=== PATIENT | male | born 1955 | race Caucasian/White ===

== ENCOUNTER 2018-04-11 11:33 | Observation (INO) | payer OTHER ==
--- NOTE | 2018-04-11 12:27 | PDOC ---
History of Present Illness - General Chief Complaint: Blood Sugar Problem Stated Complaint: WEAKNESS Time Seen by Provider: 04/11/18 12:15 - History of Present Illness Initial Comments: 04/11/18 12:21 62 yo M with h/o HTN, HLD, HIV (CD4 842 02/2018) on HAART, Hep C, Cirrhosis, CAD , who p/w lightheadedness. Patient reports lightheadedness and fatigue x 3 days. No identifiable triggers or alleviators. Decreased appetite x 5 days, with decreased PO intake. Patient reports home glucose of 40, 68 Glu in triage. Patient typically, ambulates with crutches. Patient denies SIMON, LOC, N/V, cough, wheezing, palpitations, hemoptysis, leg pain/swelling, F,C, CP, SOB, urinary complaints, abdominal pain, diarrhea, constipation, hematuria, BPR, lightheadedness, weakness, sensory changes. PMHx: as noted above ROS: as noted SHx: Denies Etoh, tobacco, IVDA Allergies:Bactrim Past History - Past Medical History Allergies/Adverse Reactions: Allergies Allergy/AdvReac Type Severity Reaction Status Date / Time sulfamethoxazole Allergy Unknown Verified 04/11/18 12:04 [From Bactrim] trimethoprim [From Bactrim] Allergy Unknown Verified 04/11/18 12:04 Home Medications: Ambulatory Orders Emtricitabine/Tenofovir [Truvada -] 300 mg PO DAILY 05/04/13 Docusate Sodium [Colace -] 100 mg PO TID 09/20/15 Aspirin Coated [Ecotrin -] 81 mg PO DAILY #30 tablet.ec 09/21/15 Metoprolol Succinate [Toprol XL -] 25 mg PO DAILY #30 tab.sr.24h 09/21/15 Oxycodone HCl 10 mg PO Q6H PRN 09/21/15 Raltegravir [Isentress] 400 mg PO BID 09/21/15 Atorvastatin Ca [Lipitor] 10 mg PO HS #30 tablet 09/26/15 Asthma: Yes Cancer: Yes (brain tumor) Cardiac Disorders: Yes COPD: No Liver Disease: Yes (Hep B and C Chirrosis) Other medical history: HIV+ - Surgical History Cardiac Surgery: Yes (Valve replacementsx2) Orthopedic Surgery: Yes (Back 2008) - Immunization History Immunization Up to Date: (unknown) - Suicide/Smoking/Psychosocial Hx Smoking History: Unknown if ever smoked Have you smoked in the past 12 months: Yes Number of Cigarettes Smoked Daily: 3 'Breaking Loose' booklet given: 09/21/15 Hx Alcohol Use: No Drug/Substance Use Hx: No Substance Use Type: None Hx Substance Use Treatment: No Review of Systems - Review of Systems Comments:: 04/11/18 12:25 GENERAL/CONSTITUTIONAL: + Lightheadedness, Decreased appetite. No fever or chills. No weakness. HEAD, EYES, EARS, NOSE AND THROAT: No change in vision. No ear pain or discharge. No sore throat. CARDIOVASCULAR: No chest pain or shortness of breath RESPIRATORY: No cough, wheezing, or hemoptysis. GASTROINTESTINAL: No nausea, vomiting, diarrhea or constipation. GENITOURINARY: No dysuria, frequency, or change in urination. MUSCULOSKELETAL: No joint or muscle swelling or pain. No neck or back pain. SKIN: No rash NEUROLOGIC: No headache, vertigo, loss of consciousness, or change in strength/ sensation. ENDOCRINE: No increased thirst. No abnormal weight change HEMATOLOGIC/LYMPHATIC: No anemia, easy bleeding, or history of blood clots. ALLERGIC/IMMUNOLOGIC: No hives or skin allergy. *Physical Exam - Vital Signs Last Vital Signs Temp Pulse Resp BP Pulse Ox 97.9 F 57 L 17 124/67 100 04/11/18 11:57 04/11/18 11:57 04/11/18 11:57 04/11/18 11:57 04/11/18 11:57 - Physical Exam Comments: 04/11/18 12:25 GENERAL: Awake, alert, and fully oriented,somnolent appearing, and malnourished , with temporal wasting HEAD: No signs of trauma, normocephalic, atraumatic EYES: PERRLA, EOMI, sclera anicteric, conjunctiva clear ENT: Auricles normal inspection, hearing grossly normal, nares patent, oropharynx clear without exudates. Moist mucosa NECK: Normal ROM, supple, no lymphadenopathy, JVD, or masses LUNGS: No distress, speaks full sentences, clear to auscultation bilaterally HEART: Regular rate and rhythm, normal S1 and S2, no murmurs, rubs or gallops, peripheral pulses normal and equal bilaterally. ABDOMEN: Soft, nontender, normoactive bowel sounds. No guarding, no rebound. No masses EXTREMITIES : Normal inspection, Normal range of motion, no edema. No clubbing or cyanosis. NEUROLOGICAL: Cranial nerves II through XII grossly intact. Normal speech, normal gait, no focal sensorimotor deficits SKIN: Warm, Dry, normal turgor, no rashes or lesions noted Moderate Sedation - Procedure Monitoring Vital Signs: Procedure Monitoring Vital Signs Temperature 97.9 F 04/11/18 11:57 Pulse Rate 57 L 04/11/18 11:57 Respiratory Rate 17 04/11/18 11:57 Blood Pressure 124/67 04/11/18 11:57 O2 Sat by Pulse Oximetry (%) 100 04/11/18 11:57 ED Treatment Course - LABORATORY CBC & Chemistry Diagram: 04/11/18 12:10 04/11/18 12:10 - ADDITIONAL ORDERS Additional order review: Laboratory Results 04/11/18 11:44 POC Glucometer 68.45832 04/11/18 11:44 POC Glucometer 68.50242 Medical Decision Making - Medical Decision Making 04/11/18 12:27 62 yo M with h/o HTN, HLD, HIV (CD4 842 02/2018) on HAART, Hep C, CAD, who p/w lightheadedness. HR, 57, vitals otherwise wnl, AF, A&Ox3. Will evaluate for cardiac dyssarythmias, hypoglycemia, hypovolemia, electrolyte abnml, metabolic and toxic derangements, acid-base disturbances, infection. Ed Course: CBC,CMP, VBG, LA, Cardiac Pr.Mg, ABG, NH4 CXR NS EKG: Sinus bradycardia with incomplete left BBB, QT 529, and nml axis. Nml axis. Similar to prior EKG ( 09/2015) 04/11/18 14:16 CBC: Unremarkable BUN/CR: 25/1.7 Trop: Neg 04/11/18 14:17 CXR: Unremarkable. 04/11/18 14:18 Calcium: 6.6 04/11/18 14:18 VB.2 Pco2: 62.1 AB.32/44.7/72.8/22.1 95% O2 RA Calcium: 6.6 04/11/18 14:20 Calcium Gluconate: 1 gm called and left message with neurosurgery solution coordinator. Dr. Jason mcgill. Answering service notified. Awaiting call back. Dr. Jason Mcgill. 04/11/18 15:[address] Rodrigues. 04/11/18 16:11 CTH: Enlarged sella with an intrasellar and suprasellar mass lesion measuring 3.1 cm in craniocaudal length. It demonstrates a slightly lobulated contour and it is reaching and displacing the optic chiasm, superiorly with likely mass effect/effacement. There is also possible extension of the mass into the left cavernous sinus. 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 Correlation with contrast-enhanced MRI of the sella is recommended for further evaluation. Contacted Dr. Donna wallace [phone]. Left message. Awaiting call back. 04/11/18 17:[address] Donna wallace not PMD per answering service. Re attempted phone call to Dr. Jason Mcgill. Message placed. [phone] 04/11/18 21:21 Neurosurgery Jason Mcgill contacted. No acute intervention at this time. Plan to admit to medicine Patient endorsed to medicine. Admit to [facility] *DC/Admit/Observation/Transfer Diagnosis at time of Disposition: Hypocalcemia Failure to thrive Qualifiers: Failure to thrive age range: in adult Qualified Code(s): R62.7 - Adult failure to thrive Altered mental status Qualifiers: Altered mental status type: unspecified Qualified Code(s): R41.82 - Altered mental status, unspecified - Discharge Dispostion Condition at time of disposition: Stable Decision to Admit order: Yes - Referrals Referrals: Lili England MD [Primary Care Provider] - - Patient Instructions - Post Discharge Activity
[2018-04-11] MEDS ORDERED: SODIUM CHLORIDE 1,000 ML IV STA (12:46)
--- NOTE | 2018-04-11 12:54 | PDOC ---
Attending Attestation - HPI HPI: 04/11/18 13:30 The patient is a 62 year old male with a significant past medical history of HTN , HLD, HIV (CD4 842 02/2018) on HAART, Hepatitis C, Cirrhosis, CAD, who presents to the emergency department with complaint of lightheadedness and fatigue for three days and 5 days of decreased appetite with decreased PO intake. Patient denies SIMON, LOC, N/V, cough, wheezing, palpitations, hemoptysis, leg pain/swelling, F,C, CP, SOB, urinary complaints, abdominal pain, diarrhea, constipation, hematuria, BPR, lightheadedness, weakness, sensory changes. Allergies: Sulfamethoxazole, trimethoprim - Medical Decision Making 04/11/18 13:33 Documentation prepared by Luma Gallardo, acting as medical office assistant instructor for Johanne Golden MD <Luma Gallardo - Last Filed: 04/11/18 14:42> - Resident Resident Name: Anibal Comer - ED Attending Attestation I have performed the following: I have examined & evaluated the patient, The case was reviewed & discussed with the resident, I agree w/resident's findings & plan, Exceptions are as noted - Physicial Exam PE: GENERAL: Awake, alert. Answers some questions, but very minimal communication. Cachectic. HEAD: No signs of trauma. +Temporal wasting. EYES: PERRLA, EOMI, sclera anicteric, conjunctiva clear ENT: Auricles normal inspection, hearing grossly normal, nares patent, oropharynx clear without exudates. Moist mucosa NECK: Normal ROM, supple, no lymphadenopathy, JVD, or masses LUNGS: Breath sounds equal, clear to auscultation bilaterally. No wheezes, and no crackles HEART: Regular rate and rhythm, normal S1 and S2, no murmurs, rubs or gallops ABDOMEN: Soft, nontender, normoactive bowel sounds. No guarding, no rebound. No masses EXTREMITIES: Normal range of motion, no edema. No clubbing or cyanosis. No cords, erythema, or tenderness NEUROLOGICAL: Cranial nerves II through XII grossly intact. Normal speech. Motor and sensation intact. SKIN: Warm, Dry, normal turgor, no rashes or lesions noted. - Medical Decision Making Pt appears chronically ill, cachectic. Started a broad workup- CBC, CMP, lactate , ammonia. Pt with significant hypocalcemia on initial labs. VBG is concerning, will obtain an ABG for accurate acid/base status. 04/11/18 15:37 CTH positive for pituitary mass. Will d/w neurosurgery regarding management and whether or not he requires transfer. <Johanne Golden - Last Filed: 04/11/18 15:38>
[2018-04-11 13:29] LABS: BASO % 0.9 % (0-2.0); EOS % 14.6 % (0-4.5); HEMATOCRIT 42.1 % (35.4-49); HEMOGLOBIN 13.6 GM/dL (11.7-16.9); MCH 30.2 pg (25.7-33.7); MCHC 32.2 g/dl (32.0-35.9); MEAN CELL VOLUME 93.7 fl (80-96); MEAN PLT VOLUME 9.1 fl (7.5-11.1); MONO % 5.9 % (3.8-10.2); NEUT % 51.6 % (42.8-82.8); PLATELET COUNT 293 K/MM3 (134-434); RDW 14.5 % (11.9-15.9); WHITE BLOOD COUNT 6.5 K/mm3 (4.0-10.0)
--- NOTE | 2018-04-11 13:41 | EKG ---
Test Reason : Blood Pressure : / mmHG Vent. Rate : 057 BPM Atrial Rate : 057 BPM P-R Int : 180 ms QRS Dur : 116 ms QT Int : 544 ms P-R-T Axes : -15 -24 -28 degrees QTc Int : 529 ms SINUS BRADYCARDIA INCOMPLETE LEFT BUNDLE BRANCH BLOCK NONSPECIFIC ST AND T WAVE ABNORMALITY PROLONGED QT ABNORMAL ECG WHEN COMPARED WITH ECG OF 20-SEP-2015 17:44, INCOMPLETE LEFT BUNDLE BRANCH BLOCK IS NOW PRESENT T WAVE INVERSION NOW EVIDENT IN INFERIOR LEADS NONSPECIFIC T WAVE ABNORMALITY NOW EVIDENT IN ANTEROLATERAL LEADS Confirmed by USMAN CHRISTOPHER MD ([id number]) on 04/11/2018 1:40:28 PM Referred By: Confirmed By:USMAN CHRISTOPHER MD
[2018-04-11 13:45] LABS: VENOUS PC02 62.1 mmHg (38-52); VENOUS PH 7.2 (7.32-7.42); VENOUS PO2 19.4 mmHg (28-48)
[2018-04-11 13:47] LABS: INR 1.11 (0.83-1.09); PROTHROMBIN TIME (PATIENT) 13.1 SEC (9.7-13.0)
[2018-04-11 13:50] LABS: ACTIVATED PTT 39.2 SECONDS (25.2-36.5)
[2018-04-11 14:05] LABS: ALBUMIN 3.9 g/dl (3.4-5.0); ALK PHOS 137 U/L (45-117); ANION GAP 8 MMOL/L (8-16); BILIRUBIN,TOTAL 0.4 mg/dL (0.2-1); BLOOD UREA NITROGEN 24 mg/dL (7-18); CHLORIDE 104 mmol/L (98-107); CO2 26 mmol/L (21-32); CREATININE 1.7 mg/dL (0.55-1.3); GLUCOSE,RANDOM 68 mg/dL (74-106); POTASSIUM 3.8 mmol/L (3.5-5.1); SGOT/AST 16 U/L (15-37); SGPT/ALT 12 U/L (13-61); SODIUM 138 mmol/L (136-145); TOT PROT 7.7 g/dl (6.4-8.2)
[2018-04-11 14:17] LABS: CALCIUM 6.6 mg/dL (8.5-10.1)
[2018-04-11] MEDS ORDERED: CALCIUM GLUCONATE 10% - 1,000 MG/10 ML VIAL IVPB ONE (14:19)
--- NOTE | 2018-04-11 15:12 | HP ---
CHIEF COMPLAINT: PCP: HISTORY OF PRESENT ILLNESS: ER course was notable for: (1) (2) (3) Recent Travel: PAST MEDICAL HISTORY: PAST SURGICAL HISTORY: Social History: Smoking: Alcohol: Drugs: Family History: Allergies sulfamethoxazole [From Bactrim] Allergy (Unknown, Verified 04/11/18 12:04) trimethoprim [From Bactrim] Allergy (Unknown, Verified 04/11/18 12:04) HOME MEDICATIONS: Home Medications Medication Instructions Recorded Emtricitabine/Tenofovir [Truvada -] 300 mg PO DAILY 05/04/13 Docusate Sodium [Colace -] 100 mg PO TID 09/20/15 Aspirin Coated [Ecotrin -] 81 mg PO DAILY #30 tablet.ec 09/21/15 Metoprolol Succinate [Toprol XL -] 25 mg PO DAILY #30 tab.sr.24h 09/21/15 Oxycodone HCl 10 mg PO Q6H PRN 09/21/15 Raltegravir [Isentress] 400 mg PO BID 09/21/15 Atorvastatin Ca [Lipitor] 10 mg PO HS #30 tablet 09/26/15 REVIEW OF SYSTEMS CONSTITUTIONAL: Absent: fever, chills, diaphoresis, generalized weakness, malaise, loss of appetite, weight change HEENT: Absent: rhinorrhea, nasal congestion, throat pain, throat swelling, difficulty swallowing, mouth swelling, ear pain, eye pain, visual changes CARDIOVASCULAR: Absent: chest pain, syncope, palpitations, irregular heart rate, lightheadedness , peripheral edema RESPIRATORY: Absent: cough, shortness of breath, dyspnea with exertion, orthopnea, wheezing, stridor, hemoptysis GASTROINTESTINAL: Absent: abdominal pain, abdominal distension, nausea, vomiting, diarrhea, constipation, melena, hematochezia GENITOURINARY: Absent: dysuria, frequency, urgency, hesitancy, hematuria, flank pain, genital pain MUSCULOSKELETAL: Absent: myalgia, arthralgia, joint swelling, back pain, neck pain SKIN: Absent: rash, itching, pallor HEMATOLOGIC/IMMUNOLOGIC: Absent: easy bleeding, easy bruising, lymphadenopathy, frequent infections ENDOCRINE: Absent: unexplained weight gain, unexplained weight loss, heat intolerance, cold intolerance NEUROLOGIC: Absent: headache, focal weakness or paresthesias, dizziness, unsteady gait, seizure, mental status changes, bladder or bowel incontinence PSYCHIATRIC: Absent: anxiety, depression, suicidal or homicidal ideation, hallucinations. PHYSICAL EXAMINATION Vital Signs - 24 hr 04/11/18 11:57 Temperature 97.9 F Pulse Rate 57 L Respiratory 17 Rate Blood Pressure 124/67 O2 Sat by Pulse 100 Oximetry (%) GENERAL: Awake, alert, and fully oriented, in no acute distress. HEAD: Normal with no signs of trauma. EYES: Pupils equal, round and reactive to light, extraocular movements intact, sclera anicteric, conjunctiva clear. No lid lag. EARS, NOSE, THROAT: Ears normal, nares patent, oropharynx clear without exudates. Moist mucous membranes. NECK: Normal range of motion, supple without lymphadenopathy, JVD, or masses. LUNGS: Breath sounds equal, clear to auscultation bilaterally. No wheezes, and no crackles. No accessory muscle use. HEART: Regular rate and rhythm, normal S1 and S2 without murmur, rub or gallop. ABDOMEN: Soft, nontender, not distended, normoactive bowel sounds, no guarding, no rebound, no masses. No hepatomegaly or splenomegaly. MUSCULOSKELETAL: Normal range of motion at all joints. No bony deformities or tenderness. No CVA tenderness. UPPER EXTREMITIES: 2+ pulses, warm, well-perfused. No cyanosis. No clubbing. No peripheral edema. LOWER EXTREMITIES: 2+ pulses, warm, well-perfused. No calf tenderness. No peripheral edema. NEUROLOGICAL: Cranial nerves II-XII intact. Normal speech. Normal gait. PSYCHIATRIC: Cooperative. Good eye contact. Appropriate mood and affect. SKIN: Warm, dry, normal turgor, no rashes or lesions noted, normal capillary refill. Laboratory Results - last 24 hr 04/11/18 04/11/18 04/11/18 11:44 12:10 12:10 WBC 6.5 RBC 4.50 Hgb 13.6 Hct 42.1 MCV 93.7 MCH 30.2 MCHC 32.2 RDW 14.5 Plt Count 293 MPV 9.1 Absolute Neuts (auto) 3.4 Neutrophils % 51.6 D Lymphocytes % 27.0 D Monocytes % 5.9 Eosinophils % 14.6 H Basophils % 0.9 Nucleated RBC % 0 PT with INR 13.10 H INR 1.11 H PTT (Actin FS) 39.2 H VBG pH POC VBG pCO2 POC VBG pO2 Mixed VBG HCO3 Sodium Potassium Chloride Carbon Dioxide Anion Gap BUN Creatinine Creat Clearance w eGFR POC Glucometer 68.47697 Random Glucose Lactic Acid Calcium Total Bilirubin AST ALT Alkaline Phosphatase Creatine Kinase Troponin I Total Protein Albumin 04/11/18 04/11/18 04/11/18 12:10 12:10 12:10 WBC RBC Hgb Hct MCV MCH MCHC RDW Plt Count MPV Absolute Neuts (auto) Neutrophils % Lymphocytes % Monocytes % Eosinophils % Basophils % Nucleated RBC % PT with INR INR PTT (Actin FS) VBG pH 7.20 L* POC VBG pCO2 62.1 H* POC VBG pO2 19.4 L* Mixed VBG HCO3 25.9 H Sodium 138 Potassium 3.8 Chloride 104 Carbon Dioxide 26 Anion Gap 8 BUN 24 H Creatinine 1.7 H Creat Clearance w eGFR 41.32 POC Glucometer Random Glucose 68 L Lactic Acid 0.8 Calcium 6.6 L* Total Bilirubin 0.4 AST 16 ALT 12 L Alkaline Phosphatase 137 H Creatine Kinase 78 Troponin I Total Protein 7.7 Albumin 3.9 04/11/18 12:10 WBC RBC Hgb Hct MCV MCH MCHC RDW Plt Count MPV Absolute Neuts (auto) Neutrophils % Lymphocytes % Monocytes % Eosinophils % Basophils % Nucleated RBC % PT with INR INR PTT (Actin FS) VBG pH POC VBG pCO2 POC VBG pO2 Mixed VBG HCO3 Sodium Potassium Chloride Carbon Dioxide Anion Gap BUN Creatinine Creat Clearance w eGFR POC Glucometer Random Glucose Lactic Acid Calcium Total Bilirubin AST ALT Alkaline Phosphatase Creatine Kinase Troponin I < 0.02 Total Protein Albumin ASSESSMENT/PLAN: Problem List - Problem (1) Altered mental status (2) Failure to thrive (3) Hypocalcemia (4) HIV (human immunodeficiency virus infection) (5) Hepatitis C (6) Hypertension (7) H/O mitral valve replacement (8) DVT prophylaxis Code(s): [id number] - Visit type - Emergency Visit Emergency Visit: Yes Care time: The patient presented to the Emergency Department on the above date and was hospitalized for further evaluation of their emergent condition. - New Patient This patient is new to me today: Yes Date on this admission: 04/11/18 - Critical Care Critical Care patient: No
[2018-04-11 16:07] LABS: ARTERIAL BLD GAS O2 SATURATION 92.1 % (90-98.9); ARTERIAL BLOOD GAS BASE EXCESS -3.5 meq/l (-2-2); ARTERIAL BLOOD GAS PCO2 44.7 mmHg (35-45); ARTERIAL BLOOD GAS PO2 72.8 mmHg (80-100); ARTERIAL BLOOD GAS pH 7.32 (7.35-7.45); CARBOXYHEMOGLOBIN 0.5 gm% (0.5-2.0)
[2018-04-11] MEDS ORDERED: CALCIUM GLUCONATE 10% - 1,000 MG/10 ML VIAL ONE (16:24)
[2018-04-11] MEDS ORDERED: oxyCODONE HCL 5 MG TABLET ONE (16:25)
[2018-04-11 16:31] LABS: MAGNESIUM 2.7 mg/dL (1.8-2.4)
[2018-04-11] MEDS: oxyCODONE HCL 5 MG TABLET PO PRN (16:44)
[2018-04-11] MEDS ORDERED: HEPARIN NA (PORCINE) 5,000 UNITS/ML 1ML VIAL SQ SCH (22:00)
[2018-04-11] MEDS ORDERED: SODIUM CHLORIDE 1,000 ML IV SCH (23:00)
[2018-04-11] MEDS ORDERED: DOCUSATE SODIUM 100 MG CAPSULE (FP) PO ONE (23:13)
[2018-04-11] MEDS ORDERED: ATORVASTATIN CA 10 MG TABLET (FP) ONE (23:13)
--- NOTE | 2018-04-11 23:26 | HP ---
CHIEF COMPLAINT: lightheadedness, failure to thrive PCP: HISTORY OF PRESENT ILLNESS: Patient is a 71 y/o M w/ PMHx HIV (reportedly compliant w/ ART, CD4 842 in February), Hepatitis C, cirrhosis, CAD w/ 2 valve replacements (could not provide further details), HTN, HLD, IVDA, p/w severe lightheadedness, anorexia, dizziness, fatigue x 3-4 days. No inciting triggers. Denies SIMON, LOC, n/v/c/d, cough, SOB, hemoptysis, hematuria, hematochezia/melena, rash, LE pain/swelling, f/c, CP, abd pain, dysuria, weakness, change in sensation. Denies any recent change in weight. Reports chronic back pain and difficulty passing urine. On presentation Ca 6.6 (given Ca gluconate in ED), Cr 1.7, EKG showing mild sinus bradycardia, incomplete LBBB, QTc 529 unchanged since 2016, non-contrast head CT showing 3cm pituitary mass. Patient reports knowing of pituitary mass since w /u at [place] in 2015 where he was offered and declined neurosurgery. Neurosurgery contacted by ED today who declined intervention at this time. Patient-provided history lacks numerous details; medication compliance is questionable as Pt does not know names of ART drugs. ER course was notable for: (1) Ca 6.6 (2) NCHCT w/ 3cm pituitary mass (3) Cr 1.7 Recent Travel: PAST MEDICAL HISTORY: As per HPI PAST SURGICAL HISTORY: Valve replacement x 2, possible other cardiac surgery, orthopedic surgery; further details unknown Social History: Smoking: Alcohol: Drugs: IVDA Family History: Allergies sulfamethoxazole [From Bactrim] Allergy (Unknown, Verified 04/11/18 12:04) trimethoprim [From Bactrim] Allergy (Unknown, Verified 04/11/18 12:04) HOME MEDICATIONS: Home Medications Medication Instructions Recorded Emtricitabine/Tenofovir [Truvada -] 300 mg PO DAILY 05/04/13 Docusate Sodium [Colace -] 100 mg PO TID 09/20/15 Aspirin Coated [Ecotrin -] 81 mg PO DAILY #30 tablet.ec 09/21/15 Metoprolol Succinate [Toprol XL -] 25 mg PO DAILY #30 tab.sr.24h 09/21/15 Oxycodone HCl 10 mg PO Q6H PRN 09/21/15 Raltegravir [Isentress] 400 mg PO BID 09/21/15 Atorvastatin Ca [Lipitor] 10 mg PO HS #30 tablet 09/26/15 REVIEW OF SYSTEMS As per HPI PHYSICAL EXAMINATION Vital Signs - 24 hr 04/11/18 04/11/18 11:57 17:49 Temperature 97.9 F 97.6 F Pulse Rate 57 L Pulse Rate [ 60 Right Radial] Respiratory 17 18 Rate Blood Pressure 124/67 Blood Pressure 141/64 [Right Arm] O2 Sat by Pulse 100 98 Oximetry (%) GENERAL: A&Ox3, NAD. Generalized cachexia and malaise, temporal wasting, scaphoid abdomen. Confusion and gaps in history despite no discrete orientation deficit. HEAD: NC/AT. Temporal wasting. EYES: PERRLA, EOMI, no visual field deficit EARS, NOSE, THROAT: negative [place] sign NECK: Normal range of motion, supple without lymphadenopathy, JVD, or masses. LUNGS: Mild coarse crackles at bases b/l HEART: 6cm midline surgical scar, RRR no m/r/g, heart sounds muffled ABDOMEN: distant bowel sounds, scaphoid abdomen, no tenderness, no rigidity, no guarding MUSCULOSKELETAL: chronic back pain not reproducible by spinal and paraspinal palpation UPPER EXTREMITIES: 2+ pulses, warm, well-perfused. No cyanosis. No clubbing. No peripheral edema. LOWER EXTREMITIES: 2+ pulses, warm, well-perfused. No calf tenderness. No peripheral edema. NEUROLOGICAL: packaging coordinator, motor, sensory systems without focal deficit PSYCHIATRIC: confused, limited speech, tangential speech SKIN: Warm, dry, normal turgor, no rashes or lesions noted, normal capillary refill. Laboratory Results - last 24 hr 04/11/18 04/11/18 04/11/18 11:44 12:10 12:10 WBC 6.5 RBC 4.50 Hgb 13.6 Hct 42.1 MCV 93.7 MCH 30.2 MCHC 32.2 RDW 14.5 Plt Count 293 MPV 9.1 Absolute Neuts (auto) 3.4 Neutrophils % 51.6 D Lymphocytes % 27.0 D Monocytes % 5.9 Eosinophils % 14.6 H Basophils % 0.9 Nucleated RBC % 0 PT with INR 13.10 H INR 1.11 H PTT (Actin FS) 39.2 H Anticoagulation Therapy Puncture Site ABG pH ABG pCO2 at Pt Temp ABG pO2 at Pt Temp ABG HCO3 ABG O2 Sat (Measured) ABG O2 Content ABG Base Excess Chele Test VBG pH POC VBG pCO2 POC VBG pO2 Mixed VBG HCO3 Carboxyhemoglobin Methemoglobin O2 Delivery Device Oxygen Flow Rate Vent Mode Vent Rate Mechanical Rate Pressure Support Vent Sodium Potassium Chloride Carbon Dioxide Anion Gap BUN Creatinine Creat Clearance w eGFR POC Glucometer [id number] Random Glucose Lactic Acid Calcium Magnesium Total Bilirubin AST ALT Alkaline Phosphatase Ammonia Creatine Kinase Troponin I Total Protein Albumin 04/11/18 04/11/18 04/11/18 12:10 12:10 12:10 WBC RBC Hgb Hct MCV MCH MCHC RDW Plt Count MPV Absolute Neuts (auto) Neutrophils % Lymphocytes % Monocytes % Eosinophils % Basophils % Nucleated RBC % PT with INR INR PTT (Actin FS) Anticoagulation Therapy Puncture Site ABG pH ABG pCO2 at Pt Temp ABG pO2 at Pt Temp ABG HCO3 ABG O2 Sat (Measured) ABG O2 Content ABG Base Excess Chele Test VBG pH 7.20 L* POC VBG pCO2 62.1 H* POC VBG pO2 19.4 L* Mixed VBG HCO3 25.9 H Carboxyhemoglobin Methemoglobin O2 Delivery Device Oxygen Flow Rate Vent Mode Vent Rate Mechanical Rate Pressure Support Vent Sodium 138 Potassium 3.8 Chloride 104 Carbon Dioxide 26 Anion Gap 8 BUN 24 H Creatinine 1.7 H Creat Clearance w eGFR 41.32 POC Glucometer Random Glucose 68 L Lactic Acid 0.8 Calcium 6.6 L* Magnesium Total Bilirubin 0.4 AST 16 ALT 12 L Alkaline Phosphatase 137 H Ammonia Creatine Kinase 78 Troponin I Total Protein 7.7 Albumin 3.9 04/11/18 04/11/18 04/11/18 12:10 14:23 15:52 WBC RBC Hgb Hct MCV MCH MCHC RDW Plt Count MPV Absolute Neuts (auto) Neutrophils % Lymphocytes % Monocytes % Eosinophils % Basophils % Nucleated RBC % PT with INR INR PTT (Actin FS) Anticoagulation Therapy No Result Required. Puncture Site No Result Required. ABG pH 7.32 L ABG pCO2 at Pt Temp 44.7 ABG pO2 at Pt Temp 72.8 L ABG HCO3 22.1 ABG O2 Sat (Measured) 92.1 ABG O2 Content 15.1 ABG Base Excess -3.5 L Chele Test No Result Required. VBG pH POC VBG pCO2 POC VBG pO2 Mixed VBG HCO3 Carboxyhemoglobin 0.5 Methemoglobin 1.0 O2 Delivery Device No Result Required. Oxygen Flow Rate No Result Required. Vent Mode No Result Required. Vent Rate No Result Required. Mechanical Rate No Result Required. Pressure Support Vent No Result Required. Sodium Potassium Chloride Carbon Dioxide Anion Gap BUN Creatinine Creat Clearance w eGFR POC Glucometer Random Glucose Lactic Acid Calcium Magnesium 2.7 H Total Bilirubin AST ALT Alkaline Phosphatase Ammonia Creatine Kinase Troponin I < 0.02 Total Protein Albumin 04/11/18 15:52 WBC RBC Hgb Hct MCV MCH MCHC RDW Plt Count MPV Absolute Neuts (auto) Neutrophils % Lymphocytes % Monocytes % Eosinophils % Basophils % Nucleated RBC % PT with INR INR PTT (Actin FS) Anticoagulation Therapy Puncture Site ABG pH ABG pCO2 at Pt Temp ABG pO2 at Pt Temp ABG HCO3 ABG O2 Sat (Measured) ABG O2 Content ABG Base Excess Chele Test VBG pH POC VBG pCO2 POC VBG pO2 Mixed VBG HCO3 Carboxyhemoglobin Methemoglobin O2 Delivery Device Oxygen Flow Rate Vent Mode Vent Rate Mechanical Rate Pressure Support Vent Sodium Potassium Chloride Carbon Dioxide Anion Gap BUN Creatinine Creat Clearance w eGFR POC Glucometer Random Glucose Lactic Acid Calcium Magnesium Total Bilirubin AST ALT Alkaline Phosphatase Ammonia < 10.00 L Creatine Kinase Troponin I Total Protein Albumin ASSESSMENT/PLAN: 62 y/o M w/ PMHx HIV (questionable ART compliance), CAD (? valve replacement x 2 , possible further cardiac surgery), hep C, cirrhosis, HTN, HLD, p/w severe lightheadedness, anorexia, dizziness, fatigue x 3-4 days. 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 -ID consulted -LP may be indicated -ART restarted -requires medication reconciliation -repeat CD4 ordered (last on record in 2015) #cardiac -detailed nature of cardiac w/u, intervention, f/u unknown -echo ordered -consider cardiology consult -restarted reported ASA, toprol, lipitor #endocrine -etiology of hypocalcemia unknown at this time -PTH, phosphate pending -hypocalcemia asymptomatic thus far #FEN -NS @ 100 -monitor electrolytes closely and replete as necessary -regular diet, encourage as much PO intake as tolerated #PPx -DVT: heparin subq -GI: not indicated #code -full #dispo -obs Visit type - Emergency Visit Emergency Visit: Yes Care time: The patient presented to the Emergency Department on the above date and was hospitalized for further evaluation of their emergent condition. - New Patient This patient is new to me today: Yes Date on this admission: 04/11/18 - Critical Care Critical Care patient: No
--- NOTE | 2018-04-11 23:27 | PN ---
Teaching Attending Note Name of Resident: Rico Lake ATTENDING PHYSICIAN STATEMENT I saw and evaluated the patient. I reviewed the resident's note and discussed the case with the resident. I agree with the resident's findings and plan as documented. SUBJECTIVE: Patient is a 62 year old man with history of HTN, HLD, HIV disease (CD4 842 2017) on HAART, Hep C, Cirrhosis and CAD, who presents with lightheadedness. Patient reports lightheadedness and fatigue for 3 days. No identifiable triggers or alleviators. Decreased appetite for 5 days, with decreased PO intake. Patient reports home glucose of 40, 68 Glu in triage. Patient typically , ambulates with crutches. Patient denies SIMON, LOC, N/V, cough, wheezing, palpitations, hemoptysis, leg pain/swelling, SOB, urinary complaints, abdominal pain or diarrhea. Says lightheadedness is worse when standing. Gets HIV care at [facility]. Though he professes compliance, he does not know the name of his HIV medicine. OBJECTIVE: Alert, cachectic and sluggish Vital Signs Period Temp Pulse Resp BP Sys/Malone Pulse Ox Last 24 Hr 97.6 F-97.9 F 57-60 17-18 124-141/64-67 98-100 HEENT: No Jaundice, eye redness or discharge, PERRLA, EOMI. Temporal wasting, atraumatic. Poor dentition. External ears are normal and hearing is grossly intact. No nasal discharge. Neck: Supple, nontender. No palpable adenopathy or thyromegaly. No JVD Chest: Good effort. Clear to auscultation and percussion. Heart: Regular. No S3, rub or murmur Abdomen: Not distended, soft, nontender and no HSM. No rebound or guarding. Normoactive bowel sounds. Ext: Peripheral pulses intact. No leg edema. Skin: Warm and dry. No petechiae, rash or ecchymosis. Neuro: Alert. Oriented x3. CN 2-12 grossly intact. Sensation grossly intact in all four extremities and DTR are symmetric. Current Medications Generic Name Dose Route Start Last Admin Trade Name Freq PRN Reason Stop Dose Admin Aspirin 81 mg 04/12/18 10:00 Ecotrin - PO DAILY IGGY Atorvastatin Calcium 10 mg 04/11/18 22:00 Lipitor - PO HS IGGY Docusate Sodium 100 mg 04/11/18 22:00 Colace - PO TID [facility] Emtricitabine/Tenofovir 1 tab 04/12/18 10:00 Truvada PO DAILY [facility] Heparin Sodium (Porcine) 5,000 unit 04/11/18 23:15 Heparin - SQ TID [facility] Sodium Chloride 1,000 mls @ 100 mls/hr 04/11/18 23:00 Normal Saline - IV ASDIR [facility] Metoprolol Succinate 25 mg 04/12/18 10:00 Toprol Xl - PO DAILY [facility] Oxycodone HCl 10 mg 04/11/18 14:37 04/11/18 16:44 Roxicodone - PO 10 mg Q6H PRN Administration PAIN 7-10 Raltegravir 400 mg 04/11/18 22:00 Isentress - PO BID [facility] Home Medications Medication Instructions Recorded Emtricitabine/Tenofovir [Truvada -] 300 mg PO DAILY 05/04/13 Docusate Sodium [Colace -] 100 mg PO TID 09/20/15 Aspirin Coated [Ecotrin -] 81 mg PO DAILY #30 tablet.ec 09/21/15 Metoprolol Succinate [Toprol XL -] 25 mg PO DAILY #30 tab.sr.24h 09/21/15 Oxycodone HCl 10 mg PO Q6H PRN 09/21/15 Raltegravir [Isentress] 400 mg PO BID 09/21/15 Atorvastatin Ca [Lipitor] 10 mg PO HS #30 tablet 09/26/15 Abnormal Lab Results 04/11/18 04/11/18 04/11/18 12:10 12:10 12:10 Eosinophils % 14.6 H PT with INR 13.10 H INR 1.11 H PTT (Actin FS) 39.2 H ABG pH ABG pO2 at Pt Temp ABG Base Excess VBG pH 7.20 L* POC VBG pCO2 62.1 H* POC VBG pO2 19.4 L* Mixed VBG HCO3 25.9 H BUN Creatinine Random Glucose Calcium Magnesium ALT Alkaline Phosphatase Ammonia 04/11/18 04/11/18 04/11/18 12:10 14:23 15:52 Eosinophils % PT with INR INR PTT (Actin FS) ABG pH 7.32 L ABG pO2 at Pt Temp 72.8 L ABG Base Excess -3.5 L VBG pH POC VBG pCO2 POC VBG pO2 Mixed VBG HCO3 BUN 24 H Creatinine 1.7 H Random Glucose 68 L Calcium 6.6 L* Magnesium 2.7 H ALT 12 L Alkaline Phosphatase 137 H Ammonia 04/11/18 15:52 Eosinophils % PT with INR INR PTT (Actin FS) ABG pH ABG pO2 at Pt Temp ABG Base Excess VBG pH POC VBG pCO2 POC VBG pO2 Mixed VBG HCO3 BUN Creatinine Random Glucose Calcium Magnesium ALT Alkaline Phosphatase Ammonia < 10.00 L ASSESSMENT AND PLAN: 1. 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 He has hypoglycemia, hypocalcemia and eosinophilia in the setting of HIV disease. Need to exclude parasite infection and/or adrenal hypofunction. Will hydrate him to permit contrast enhanced head CT in view of azotemia. Send blood for ova/ parasite panel, cryptosporidium, cryptococcal antigen and assess adrenal function. Get PTH, vitamin D and phosphate levels and check urine calcium. After work up, may treat with oral calcium and vitamin d analoque. Consult ID and Charge Auditor. 2. EDUIN - May be side effect of HAART. Will get UA (?proteinuria), kidney sonogram and hydrate him. Avoid nephrotoxic agents such as NSAIDS, aminoglycosides, contrast dyes and certain Alternative medicine products. 3. DVT prophylaxis - Heparin 5000u sq tid. 4. Advance directives - Full code
[2018-04-11] MEDS: ATORVASTATIN CA 10 MG TABLET (FP) PO SCH (23:32)
[2018-04-11] MEDS: DOCUSATE SODIUM 100 MG CAPSULE (FP) PO SCH (23:33)
[2018-04-11] MEDS: HEPARIN NA (PORCINE) 5,000 UNITS/ML 1ML VIAL SQ SCH (23:33)
[2018-04-11] MEDS: RALTEGRAVIR POTASSIUM 400 MG TAB PO SCH (23:46)
[2018-04-12 01:19] LABS: URINE APPEARANCE CLEAR; URINE BILIRUBIN NEGATIVE (<2.0 mg/dL); URINE COLOR YELLOW; URINE GLUCOSE (UA) NEGATIVE (NEGATIVE); URINE KETONE 1+ (NEGATIVE); URINE LEUK ESTERASE NEGATIVE (NEGATIVE); URINE NITRITE NEGATIVE (NEGATIVE); URINE PROTEIN NEGATIVE (NEGATIVE); URINE UROBILINOGEN NEGATIVE mg/dL (0.2-1.0)
[2018-04-12] MEDS: HEPARIN NA (PORCINE) 5,000 UNITS/ML 1ML VIAL SQ SCH ×3 (06:08→22:13)
[2018-04-12] MEDS: DOCUSATE SODIUM 100 MG CAPSULE (FP) PO SCH ×3 (06:08→22:15)
[2018-04-12 07:18] LABS: BASO % 0.9 % (0-2.0); EOS % 25.5 % (0-4.5); HEMATOCRIT 34.1 % (35.4-49); HEMOGLOBIN 11.1 GM/dL (11.7-16.9); LYMPH % 35.1 % (8-40); MCH 29.8 pg (25.7-33.7); MCHC 32.4 g/dl (32.0-35.9); MEAN CELL VOLUME 92.1 fl (80-96); MONO % 5.7 % (3.8-10.2); NEUT % 32.8 % (42.8-82.8); PLATELET COUNT 247 K/MM3 (134-434); RBC 3.71 M/mm3 (4.00-5.60); RDW 13.9 % (11.9-15.9); WHITE BLOOD COUNT 6.4 K/mm3 (4.0-10.0)
[2018-04-12] MEDS ORDERED: D5-1/2NS+10 MEQ KCL - 10 MEQ/1,000 ML INFUS.BAG IV SCH (07:45)
[2018-04-12 07:58] LABS: ALBUMIN 2.9 g/dl (3.4-5.0); ALK PHOS 103 U/L (45-117); ANION GAP 9 MMOL/L (8-16); BILIRUBIN,TOTAL 0.5 mg/dL (0.2-1); BLOOD UREA NITROGEN 17 mg/dL (7-18); CALCIUM 7.6 mg/dL (8.5-10.1); CHLORIDE 108 mmol/L (98-107); CO2 22 mmol/L (21-32); CREATININE 1.2 mg/dL (0.55-1.3); MAGNESIUM 2.3 mg/dL (1.8-2.4); PHOSPHOROUS 2.5 mg/dL (2.5-4.9); POTASSIUM 3.5 mmol/L (3.5-5.1); SGOT/AST 16 U/L (15-37); SGPT/ALT 11 U/L (13-61); SODIUM 138 mmol/L (136-145); TOT PROT 5.9 g/dl (6.4-8.2)
[2018-04-12 08:14] LABS: GLUCOSE,RANDOM 44 mg/dL (74-106)
[2018-04-12] MEDS ORDERED: PT OWN MED DRAWER 7, Y5N ONE ×2 (09:03→21:44)
[2018-04-12] MEDS: ASPIRIN COATED 81 MG TABLET.EC PO SCH (09:06)
[2018-04-12] MEDS: metoPROLOL SUCCINATE 25 MG TAB.SR.24H (FP) PO SCH (09:06)
[2018-04-12] MEDS: oxyCODONE HCL 5 MG TABLET PO PRN ×2 (09:07→19:31)
[2018-04-12] MEDS: EMTRICITABINE 200MG/TENOFOVIR 300MG PO SCH (09:10)
[2018-04-12] MEDS: RALTEGRAVIR POTASSIUM 400 MG TAB PO SCH ×2 (09:11→22:00)
[2018-04-12 11:29] LABS: ACANTHOCYTES 1+; ANISOCYTOSIS 0; MACROCYTOSIS 0; PLATELET ESTIMATE NORMAL
--- NOTE | 2018-04-12 11:32 | PN ---
Teaching Attending Note Name of Resident: David Rodrigues ATTENDING PHYSICIAN STATEMENT I saw and evaluated the patient. I reviewed the resident's note and discussed the case with the resident. I agree with the resident's findings and plan as documented. SUBJECTIVE: Patient feels improved since yesterday OBJECTIVE: Vital Signs Period Temp Pulse Resp BP Sys/Malone Pulse Ox Last 24 Hr 97.6 F-98.2 F 57-66 16-20 112-141/56-67 97-100 Elderly man looks cachectic and sick not in distress HEENT: MM moist temporal wasting NECK: No JVD No Bruit CHEST: CTA B/L CVS: s1S2 R SM MA ABD: No distention, non tender, BS + EXT: No radha afeet no calf tenderness, Pulses + TALENT SPECIALIST: AOX3 non focal ASSESSMENT AND PLAN: 62 year old man with history of Know case of Pituitary tumor refused surgery , HTN, HLD, HIV disease (CD4 842 02/2018) on HAART, Hep C , Cirrhosis and CAD no intervention, Mitral Valve replacement, (Bioprosthetic , admitted with generalized weakness with lightheadedness and fatigue for 3 days Decreased appetite for 5 days, with decreased PO intake. Patient reports home glucose of 40, 68 Glu in triage today dropped to 44v Patient denies SIMON, LOC, N/ V, cough, wheezing, palpitations, hemoptysis, leg pain/swelling, SOB, urinary complaints, abdominal pain or diarrhea. Problem List - Problems (1) Failure to thrive Assessment/Plan: Multi factorial low BMI, can be HIV cachexia, H/O Hep C never treated all care at [facility] other cause can be adrenla insufficiency. Nutrition consult,. Code(s): BSX0753 - Qualifiers: Failure to thrive age range: in adult Qualified Code(s): R62.7 - Adult failure to thrive (2) Hypoglycemia Assessment/Plan: Patient has H/O Cirrhosis , low body mass now p[resenent with recurrent episode of Hypoglycemia, considering liver disease can be multifactorial including impaired Gluconeogenesis, low muscle mass , possibility of adrenal insufficiency ([place]) unlikely sepsis related will F/U ACTH, cortisol, GH, TSH , FSH , LH , Endocrine consult, IV D5 infusion 75 CC/HR encourge PO intake. Code(s): E16.2 - HYPOGLYCEMIA, UNSPECIFIED (3) Eosinopenia Assessment/Plan: can be HIV related F/U ID and Hematology consult. Code(s): D72.818 - OTHER DECREASED WHITE BLOOD CELL COUNT (4) AIDS (acquired immunodeficiency syndrome), CD4 >=500 Assessment/Plan: Last CD$ coyUnt > [address] [facility] with ARVT F/U Id recommendation no indication to Rpt CD4, patient has established care Code(s): B20 - HUMAN IMMUNODEFICIENCY VIRUS [HIV] DISEASE (5) Malnutrition compromising bodily function Assessment/Plan: Nutrition consult Code(s): E46 - UNSPECIFIED PROTEIN-CALORIE MALNUTRITION (6) Hepatitis C Assessment/Plan: F/U AFP and liver ultrasound Code(s): B19.20 - UNSPECIFIED VIRAL HEPATITIS C WITHOUT HEPATIC COMA Qualifiers: Viral hepatitis chronicity: chronic (7) Hypocalcemia Assessment/Plan: F/U PTH, Phosphate and Vit D level repleted yesterday Code(s): E83.51 - HYPOCALCEMIA (8) H/O mitral valve replacement Assessment/Plan: No active issue F/U his Lead Web Application Developer Code(s): Z95.2 - PRESENCE OF PROSTHETIC HEART VALVE (9) CAD (coronary artery disease) Assessment/Plan: as per previous cardiology H/O + NST on medical management therapy, no active issue at present Code(s): I25.10 - ATHSCL HEART DISEASE OF [place] CORONARY ARTERY W/O ANG PCTRS
--- NOTE | 2018-04-12 12:01 | ECHO ---
Name: ALCIDESAUDRA Exam:Adult Echocardiogram Study Date: 04/12/2018 10:50 AM Age: 62 yrs Reason For Study: Evaluate LVEF, RVEF, Valvular Status Height: 67 in Weight: 130 lb BSA: 1.7 m2 MMode/2D Measurements & Calculations IVSd: 1.00 cm Ao root diam: 2.7 cm LVIDd: 4.4 cm ACS: 1.7 cm LVIDs: 4.1 cm LVPWd: 1.7 cm EDV(Teich): 87.3 ml LVOT diam: 2.2 cm ESV(Teich): 75.2 ml RV S Kamlesh: 5.9 cm/sec Doppler Measurements & Calculations TR max kamlesh: 178.6 cm/sec Med Peak E' Kamlesh: 6.7 cm/sec TR max P.8 mmHg Lat Peak E' Kamlesh: 10.9 cm/sec Procedure Images were not obtained from all of the standard acoustic windows due to the limited scope of the st udy. The study was technically limited with all images being suboptimal in quality. Left Ventricle Left ventricular systolic function is mildly reduced. Septal motion is consistent with post-operative state. There is mild global hypokinesis of the left ventricle. Right Ventricle The right ventricle is normal in size and function. Atria The left atrium is mildly dilated. Mitral Valve There is a bioprosthetic mitral valve. The prosthetic mitral valve is not well visualized. No doppler gradient was obtained across the prosthetic valve. Tricuspid Valve The tricuspid valve is not well visualized, but is grossly normal. There is mild tricuspid regurgitat ion. Aortic Valve There is mild aortic sclerosis.;. No hemodynamically significant valvular aortic stenosis. Mild aorti c regurgitation. Pulmonic Valve The pulmonic valve is not well seen, but is grossly normal. There is no pulmonic valvular stenosis. Great Vessels The aortic root is normal size. Pericardium/Pleura Small pericardial effusion (<1cm). Interpretation Summary Would consider a transesophageal echocardiogram if clinically indicated. Images were not obtained fro m all of the standard acoustic windows due to the limited scope of the study. The study was technically limited with all images being suboptimal in quality. Septal motion is consistent with post-operative state. There is mild global hypokinesis of the left ventricle. Left ventricular systolic function is mildly reduced. The right ventricle is normal in size and function. There is a bioprosthetic mitral valve. The prosthetic mitral valve is not well visualized. No doppler gradient was obtained across the prosthetic valve. There is mild tricuspid regurgitation. Mild aortic regurgitation. Small pericardial effusion (<1cm) MD Pennington *Sheila 04/12/2018 12:00 PM
[2018-04-12 14:46] VITALS: BMI 18.8
[2018-04-12] MEDS: D5-1/2NS+10 MEQ KCL - 10 MEQ/1,000 ML INFUS.BAG IV SCH (15:01)
--- NOTE | 2018-04-12 15:04 | PN ---
Physical Exam: SUBJECTIVE: Patient seen and examined at bedside. No overnight events. No new complaints. More awake and alert today. Feels much better . Ate small amount of breakfast. OBJECTIVE: Vital Signs Period Temp Pulse Resp BP Sys/Malone Pulse Ox Last 24 Hr 97.6 F-98.2 F 59-66 16-20 112-141/56-67 97-99 GENERAL: Awake and alert. thin and frail , NAD HEAD: NCAT EYES: PERRL, EOMI, sclera anicteric, conjunctiva clear. No ptosis. ENT: Dry mucous membranes. NECK: supple. LUNGS: CTAB, no wheezes, no crackles, no accessory muscle use. HEART: RRR, S1, S2 , SM RSB ABDOMEN: Soft, scaphoid, NTND, NABS, no guarding, no rebound, no hepatosplenomegaly, no masses. EXTREMITIES: 2+ pulses, warm, well-perfused, no edema. NEUROLOGICAL: Cranial nerves II through XII grossly intact. Normal speech, gait not observed. PSYCH: Normal mood, normal affect. SKIN: Warm, dry, normal turgor, no rashes or lesions noted Laboratory Results - last 24 hr 04/11/18 04/11/18 04/11/18 14:23 15:52 15:52 WBC RBC Hgb Hct MCV MCH MCHC RDW Plt Count MPV Absolute Neuts (auto) Neutrophils % Neutrophils % (Manual) Band Neutrophils % Lymphocytes % Lymphocytes % (Manual) Monocytes % Monocytes % (Manual) Eosinophils % Eosinophils % (Manual) Basophils % Basophils % (Manual) Myelocytes % (Man) Promyelocytes % (Man) Blast Cells % (Manual) Nucleated RBC % Metamyelocytes Hypochromia Platelet Estimate Polychromasia Poikilocytosis Anisocytosis Microcytosis Macrocytosis Acanthocytes (Spur) Anticoagulation Therapy No Result Required. Puncture Site No Result Required. ABG pH 7.32 L ABG pCO2 at Pt Temp 44.7 ABG pO2 at Pt Temp 72.8 L ABG HCO3 22.1 ABG O2 Sat (Measured) 92.1 ABG O2 Content 15.1 ABG Base Excess -3.5 L Chele Test No Result Required. Carboxyhemoglobin 0.5 Methemoglobin 1.0 O2 Delivery Device No Result Required. Oxygen Flow Rate No Result Required. Vent Mode No Result Required. Vent Rate No Result Required. Mechanical Rate No Result Required. Pressure Support Vent No Result Required. Sodium Potassium Chloride Carbon Dioxide Anion Gap BUN Creatinine Creat Clearance w eGFR POC Glucometer Random Glucose Calcium Phosphorus Magnesium 2.7 H Total Bilirubin AST ALT Alkaline Phosphatase Ammonia < 10.00 L Troponin I Total Protein Albumin Urine Color Urine Appearance Urine pH Ur Specific [place] Urine Protein Urine Glucose (UA) Urine Ketones Urine Blood Urine Nitrite Urine Bilirubin Urine Urobilinogen Ur Leukocyte Esterase 04/12/18 04/12/18 04/12/18 00:40 06:30 06:30 WBC 6.4 RBC 3.71 L Hgb 11.1 L Hct 34.1 L D MCV 92.1 MCH 29.8 MCHC 32.4 RDW 13.9 Plt Count 247 MPV 9.0 Absolute Neuts (auto) 2.1 Neutrophils % 32.8 L D Neutrophils % (Manual) 29.8 L Band Neutrophils % 0.0 Lymphocytes % 35.1 D Lymphocytes % (Manual) 39.5 Monocytes % 5.7 Monocytes % (Manual) 2 L Eosinophils % 25.5 H* Eosinophils % (Manual) 27.2 H Basophils % 0.9 Basophils % (Manual) 0.0 Myelocytes % (Man) 0 Promyelocytes % (Man) 0 Blast Cells % (Manual) 0 Nucleated RBC % 0 Metamyelocytes 0 Hypochromia 0 Platelet Estimate Normal Polychromasia 0 Poikilocytosis 0 Anisocytosis 0 Microcytosis 0 Macrocytosis 0 Acanthocytes (Spur) 1+ Anticoagulation Therapy Puncture Site ABG pH ABG pCO2 at Pt Temp ABG pO2 at Pt Temp ABG HCO3 ABG O2 Sat (Measured) ABG O2 Content ABG Base Excess Chele Test Carboxyhemoglobin Methemoglobin O2 Delivery Device Oxygen Flow Rate Vent Mode Vent Rate Mechanical Rate Pressure Support Vent Sodium 138 Potassium 3.5 Chloride 108 H Carbon Dioxide 22 Anion Gap 9 BUN 17 Creatinine 1.2 Creat Clearance w eGFR > 60 POC Glucometer Random Glucose 44 L* Calcium 7.6 L Phosphorus 2.5 Magnesium 2.3 Total Bilirubin 0.5 AST 16 ALT 11 L Alkaline Phosphatase 103 Ammonia Troponin I < 0.02 Total Protein 5.9 L Albumin 2.9 L Urine Color Yellow Urine Appearance Clear Urine pH 5.0 Ur Specific [place] 1.016 Urine Protein Negative Urine Glucose (UA) Negative Urine Ketones 1+ H Urine Blood Negative Urine Nitrite Negative Urine Bilirubin Negative Urine Urobilinogen Negative Ur Leukocyte Esterase Negative 04/12/18 04/12/18 04/12/18 06:52 09:05 11:41 WBC RBC Hgb Hct MCV MCH MCHC RDW Plt Count MPV Absolute Neuts (auto) Neutrophils % Neutrophils % (Manual) Band Neutrophils % Lymphocytes % Lymphocytes % (Manual) Monocytes % Monocytes % (Manual) Eosinophils % Eosinophils % (Manual) Basophils % Basophils % (Manual) Myelocytes % (Man) Promyelocytes % (Man) Blast Cells % (Manual) Nucleated RBC % Metamyelocytes Hypochromia Platelet Estimate Polychromasia Poikilocytosis Anisocytosis Microcytosis Macrocytosis Acanthocytes (Spur) Anticoagulation Therapy Puncture Site ABG pH ABG pCO2 at Pt Temp ABG pO2 at Pt Temp ABG HCO3 ABG O2 Sat (Measured) ABG O2 Content ABG Base Excess Chele Test Carboxyhemoglobin Methemoglobin O2 Delivery Device Oxygen Flow Rate Vent Mode Vent Rate Mechanical Rate Pressure Support Vent Sodium Potassium Chloride Carbon Dioxide Anion Gap BUN Creatinine Creat Clearance w eGFR POC Glucometer 50 150 117 Random Glucose Calcium Phosphorus Magnesium Total Bilirubin AST ALT Alkaline Phosphatase Ammonia Troponin I Total Protein Albumin Urine Color Urine Appearance Urine pH Ur Specific [place] Urine Protein Urine Glucose (UA) Urine Ketones Urine Blood Urine Nitrite Urine Bilirubin Urine Urobilinogen Ur Leukocyte Esterase Active Medications Generic Name Dose Route Start Last Admin Trade Name Patric PRN Reason Stop Dose Admin Aspirin 81 mg 04/12/18 10:00 04/12/18 09:06 Ecotrin - PO 81 mg DAILY IGGY Administration Atorvastatin Calcium 10 mg 04/11/18 22:00 04/11/18 23:32 Lipitor - PO 10 mg HS IGGY Administration Docusate Sodium 100 mg 04/11/18 22:00 04/12/18 06:08 Colace - PO Not Given TID IGGY Emtricitabine/Tenofovir 1 tab 04/12/18 10:00 04/12/18 09:10 Truvada PO Not Given DAILY IGGY Heparin Sodium (Porcine) 5,000 unit 04/11/18 23:15 04/12/18 06:08 Heparin - SQ Not Given TID IGGY Potassium Chloride/Dextrose/Sod Cl 10 meq in 1,000 mls @ 75 mls/hr 04/12/18 11 :23 D5-1/2ns+10 Meq Kcl - IV ASDIR IGGY Metoprolol Succinate 25 mg 04/12/18 10:00 04/12/18 09:06 Toprol Xl - PO 25 mg DAILY IGGY Administration Oxycodone HCl 10 mg 04/11/18 14:37 04/12/18 09:07 Roxicodone - PO 10 mg Q6H PRN Administration PAIN 7-10 Raltegravir 400 mg 04/11/18 22:00 04/12/18 09:11 Isentress - PO Not Given BID IGGY ASSESSMENT/PLAN: Problem List - Problems (1) Altered mental status (2) Failure to thrive Assessment/Plan: Multi factorial low BMI, can be HIV cachexia, * H/O Hep C treated at [place] * will r/o adrenal insufficiency. * Nutrition consult (3) Hypocalcemia Assessment/Plan: corrected Ca+ = 8.5 * Will monitor (4) HIV (human immunodeficiency virus infection) Assessment/Plan: * As per his ID doc * CD4 >700 and VL undetectable * recently switched to Biktarvy once a day * Will continue ART while hospitalized. * ID consulted. (5) Hepatitis C Assessment/Plan: treated and cured. (6) Hypertension (7) H/O mitral valve replacement Assessment/Plan: cardiology consulted. * Echo pending. (8) DVT prophylaxis Assessment/Plan: scd's bilaterally * Heparin SQ Code(s): [id number] - Visit type - Emergency Visit Emergency Visit: Yes ED Registration Date: 04/11/18 Care time: The patient presented to the Emergency Department on the above date and was hospitalized for further evaluation of their emergent condition. - New Patient This patient is new to me today: Yes Date on this admission: 04/15/18 - Critical Care Critical Care patient: No
[2018-04-12] MEDS: ATORVASTATIN CA 10 MG TABLET (FP) PO SCH (22:13)
[2018-04-13] MEDS ORDERED: PT OWN MED DRAWER 7, Y5N ONE ×2 (00:26→10:45)
[2018-04-13 00:50] LABS: PHOSPHOROUS 3.2 mg/dL (2.5-4.9)
[2018-04-13] MEDS: oxyCODONE HCL 5 MG TABLET PO PRN ×4 (05:23→23:58)
[2018-04-13] MEDS: DOCUSATE SODIUM 100 MG CAPSULE (FP) PO SCH ×3 (05:25→22:03)
[2018-04-13 07:42] LABS: BASO % 2.2 % (0-2.0); EOS % 25.4 % (0-4.5); HEMATOCRIT 37.1 % (35.4-49); LYMPH % 38.2 % (8-40); MCHC 32.4 g/dl (32.0-35.9); MEAN CELL VOLUME 92.6 fl (80-96); MEAN PLT VOLUME 8.9 fl (7.5-11.1); NEUT % 29.2 % (42.8-82.8); PLATELET COUNT 270 K/MM3 (134-434); RBC 4.01 M/mm3 (4.00-5.60); RDW 14.1 % (11.9-15.9); WHITE BLOOD COUNT 8.3 K/mm3 (4.0-10.0)
[2018-04-13 08:57] LABS: ALBUMIN 3.2 g/dl (3.4-5.0); ALK PHOS 107 U/L (45-117); ANION GAP 9 MMOL/L (8-16); BILIRUBIN,TOTAL 0.8 mg/dL (0.2-1); BLOOD UREA NITROGEN 9 mg/dL (7-18); CALCIUM 8.2 mg/dL (8.5-10.1); CHLORIDE 107 mmol/L (98-107); CO2 24 mmol/L (21-32); CREATININE 1.3 mg/dL (0.55-1.3); GLUCOSE,RANDOM 77 mg/dL (74-106); POTASSIUM 3.9 mmol/L (3.5-5.1); SGOT/AST 19 U/L (15-37); SGPT/ALT 12 U/L (13-61); SODIUM 140 mmol/L (136-145); TOT PROT 6.3 g/dl (6.4-8.2)
--- NOTE | 2018-04-13 09:23 | PN ---
Progress Note, Physician Chief Complaint: Feels improved History of Present Illness: 62 year old man with history of Know case of Pituitary tumor refused surgery , HTN, HLD, HIV disease (CD4 842 02/2018) on HAART, Hep C, Cirrhosis and CAD no intervention, Mitral Valve replacement, (Bioprosthetic , admitted with generalized weakness with lightheadedness and fatigue for 3 days Decreased appetite for 5 days, with decreased PO intake. Patient reports home glucose of 40, 68 Glu in triage today dropped to 44v Patient denies SIMON, LOC, N/V, cough, wheezing, palpitations, hemoptysis, leg pain/swelling, SOB, urinary complaints, abdominal pain or diarrhea - Current Medication List Current Medications: Active Medications Aspirin (Ecotrin -) 81 mg PO DAILY [facility] Last Admin: 04/12/18 09:06 Dose: 81 mg Atorvastatin Calcium (Lipitor -) 10 mg PO HS [facility] Last Admin: 04/12/18 22:13 Dose: 10 mg Docusate Sodium (Colace -) 100 mg PO TID [facility] Last Admin: 04/13/18 05:25 Dose: Not Given Emtricitabine/Tenofovir (Truvada) 1 tab PO DAILY [facility] Last Admin: 04/12/18 09:10 Dose: Not Given Heparin Sodium (Porcine) (Heparin -) 5,000 unit SQ TID [facility] Last Admin: 04/12/18 22:13 Dose: 5,000 unit Potassium Chloride/Dextrose/Sod Cl (D5-1/2ns+10 Meq Kcl -) 10 meq in 1,000 mls @ 75 mls/hr IV ASDIR [facility] Last Admin: 04/12/18 15:01 Dose: 75 mls/hr Metoprolol Succinate (Toprol Xl -) 25 mg PO DAILY [facility] Last Admin: 04/12/18 09:06 Dose: 25 mg Oxycodone HCl (Roxicodone -) 10 mg PO Q6H PRN PRN Reason: PAIN 7-10 Last Admin: 04/13/18 05:23 Dose: 10 mg Raltegravir (Isentress -) 400 mg PO BID [facility] Last Admin: 04/12/18 22:00 Dose: Not Given - Objective Vital Signs: Vital Signs Temperature 98.9 F 04/13/18 06:00 Pulse Rate 56 L 04/13/18 06:00 Respiratory Rate 16 04/13/18 06:00 Blood Pressure 113/60 04/13/18 06:00 O2 Sat by Pulse Oximetry (%) 95 04/12/18 21:00 Elderly man looks cachectic and sick not in distress HEENT: MM moist temporal wasting NECK: No JVD No Bruit CHEST: CTA B/L CVS: s1S2 R SM MA ABD: No distention, non tender, BS + EXT: No radha afeet no calf tenderness, Pulses + GREEN MATERIAL VALUE ADDED ASSESSOR: AOX3 non focal . Labs: CBC, BMP 04/13/18 07:05 04/13/18 07:05 INR, PTT INR 1.11 (0.83-1.09) H 04/11/18 12:10 Problem List - Problems (1) Failure to thrive Assessment/Plan: Multi factorial low BMI, can be HIV cachexia, H/O Hep C never treated all care at [place] get old record from [facility] other cause can be adrenla insufficiency. Nutrition consult,. Code(s): WCW4902 - Qualifiers: Failure to thrive age range: in adult Qualified Code(s): R62.7 - Adult failure to thrive (2) Hypoglycemia Assessment/Plan: Patient has H/O Cirrhosis , low body mass now p[resenent with recurrent episode of Hypoglycemia, considering liver disease can be multifactorial including impaired Gluconeogenesis, low muscle mass , possibility of adrenal insufficiency ([place]) unlikely sepsis related will F/U ACTH, cortisol, GH, TSH , FSH , LH , Endocrine consult, IV D5 infusion 75 CC/HR encourge PO intake. Code(s): E16.2 - HYPOGLYCEMIA, UNSPECIFIED (3) Eosinopenia Assessment/Plan: can be HIV related F/U ID and Hematology consult. Code(s): D72.818 - OTHER DECREASED WHITE BLOOD CELL COUNT (4) AIDS (acquired immunodeficiency syndrome), CD4 >=500 Assessment/Plan: Last CD$ coyUnt > 800 last month at [place] complaint with ARVT F/U Id recommendation no indication to Rpt CD4, patient has established care Code(s): B20 - HUMAN IMMUNODEFICIENCY VIRUS [HIV] DISEASE (5) Malnutrition compromising bodily function Assessment/Plan: Nutrition consult Code(s): E46 - UNSPECIFIED PROTEIN-CALORIE MALNUTRITION (6) Hepatitis C Assessment/Plan: F/U AFP and liver ultrasound treated in the past Code(s): B19.20 - UNSPECIFIED VIRAL HEPATITIS C WITHOUT HEPATIC COMA Qualifiers: Viral hepatitis chronicity: chronic (7) Hypocalcemia Assessment/Plan: F/U PTH, Phosphate and Vit D level repleted yesterday Code(s): E83.51 - HYPOCALCEMIA (8) H/O mitral valve replacement Assessment/Plan: No active issue F/U his Preparator Code(s): Z95.2 - PRESENCE OF PROSTHETIC HEART VALVE (9) CAD (coronary artery disease) Assessment/Plan: as per previous cardiology H/O + NST on medical management therapy, no active issue at present Code(s): I25.10 - ATHSCL HEART DISEASE OF [place] CORONARY ARTERY W/O ANG PCTRS
[2018-04-13] MEDS: ASPIRIN COATED 81 MG TABLET.EC PO SCH (10:47)
[2018-04-13] MEDS: metoPROLOL SUCCINATE 25 MG TAB.SR.24H (FP) PO SCH (10:47)
[2018-04-13] MEDS: EMTRICITABINE 200MG/TENOFOVIR 300MG PO SCH (10:50)
[2018-04-13] MEDS: RALTEGRAVIR POTASSIUM 400 MG TAB PO SCH (10:50)
[2018-04-13] MEDS: HEPARIN NA (PORCINE) 5,000 UNITS/ML 1ML VIAL SQ SCH ×3 (11:07→22:03)
[2018-04-13 11:31] LABS: ANISOCYTOSIS 2+; MACROCYTOSIS 0; PLATELET ESTIMATE NORMAL
[2018-04-13] MEDS: D5-1/2NS+10 MEQ KCL - 10 MEQ/1,000 ML INFUS.BAG IV SCH (12:07)
--- NOTE | 2018-04-13 18:53 | CONSULT ---
Consult Consult Specialty:: endocrine Referred by:: dr.ahmed ortega Reason for Consultation:: pituitary mass/ adrenal deficiency - History of Present Illness Chief Complaint: weakness vomiting History of Present Illness: 62 y/o M w/ PMHx HIV (reportedly compliant w/ ART, CD4 842 in February), Hepatitis C, cirrhosis, CAD w/ 2 valve replacements, HTN, HLD, IVDA, p/w severe lightheadedness, anorexia, dizziness, fatigue x 3-4 days. Denies SIMON, LOC, n/v/c /d, cough, SOB, hemoptys, rash, LE pain/swelling, f/c, CP, abd pain, dysuria, weakness, change in sensation. Denies any recent change in weight. On presentation low calcium @ 6.6 albumin 2.9 corrected calcium 7.8 (given Ca gluconate in ED), Cr 1.7, EKG showing mild sinus bradycardia, incomplete LBBB, QTc 529 unchanged since 2016, non-contrast head CT showing 3cm pituitary mass. Patient aware of pituitary mass since w/u at [place] in 2015 where he was offered and declined neurosurgery. - History Source History Provided By: Patient - Past Medical History Cardio/Vascular: Yes: Other (Recent valve replacement surgery (6 MO ago)) Hepatobiliary: Yes: Hepatitis C Infectious Disease: Yes: HIV, Other (hepc) - Alcohol/Substance Use Hx Alcohol Use: No History of Substance Use: reports: None - Smoking History Smoking history: Unknown if ever smoked Have you smoked in the past 12 months: Yes Aproximately how many cigarettes per day: 3 - Social History Usual Living Arrangement: Alone ADL: Independent History of Recent Travel: No Home Medications - Allergies Allergies/Adverse Reactions: Allergies Allergy/AdvReac Type Severity Reaction Status Date / Time sulfamethoxazole Allergy Unknown Verified 04/11/18 12:04 [From Bactrim] trimethoprim [From Bactrim] Allergy Unknown Verified 04/11/18 12:04 - Home Medications Home Medications: Ambulatory Orders Emtricitabine/Tenofovir [Truvada -] 300 mg PO DAILY 05/04/13 Docusate Sodium [Colace -] 100 mg PO TID 09/20/15 Aspirin Coated [Ecotrin -] 81 mg PO DAILY #30 tablet.ec 09/21/15 Metoprolol Succinate [Toprol XL -] 25 mg PO DAILY #30 tab.sr.24h 09/21/15 Oxycodone HCl 10 mg PO Q6H PRN 09/21/15 Raltegravir [Isentress] 400 mg PO BID 09/21/15 Atorvastatin Ca [Lipitor] 10 mg PO HS #30 tablet 09/26/15 Review of Systems - Review of Systems Constitutional: reports: Lethargy, Weakness Eyes: reports: No Symptoms HENT: reports: No Symptoms Neck: reports: No Symptoms Cardiovascular: reports: Shortness of Breath Respiratory: reports: Exercise Intolerance, SOB on Exertion Gastrointestinal: reports: No Symptoms Genitourinary: reports: No Symptoms Breasts: reports: No Symptoms Reported Musculoskeletal: reports: Muscle Cramps, Muscle Weakness Integumentary: reports: Other Neurological: reports: No Symptoms Endocrine: reports: No Symptoms Hematology/Lymphatic: reports: No Symptoms Physical Exam Vital Signs: Vital Signs Temperature 99 F 04/13/18 13:40 Pulse Rate 70 04/13/18 13:40 Respiratory Rate 18 04/13/18 13:40 Blood Pressure 111/54 L 04/13/18 13:40 O2 Sat by Pulse Oximetry (%) 95 04/13/18 09:00 Constitutional: Yes: Calm Eyes: Yes: EOM Intact HENT: Yes: Normocephalic Neck: Yes: Trachea Midline Cardiovascular: Yes: Regular Rate and Rhythm Respiratory: Yes: CTA Bilaterally Gastrointestinal: Yes: Normal Bowel Sounds ...Rectal Exam: Yes: Deferred Renal/: Yes: WNL Breast(s): Yes: WNL Musculoskeletal: Yes: WNL Extremities: Yes: WNL Edema: No Neurological: Yes: Alert, Oriented Labs: CBC, BMP 04/13/18 07:05 04/13/18 07:05 Problem List - Problems (1) Pituitary adenoma Code(s): D35.2 - BENIGN NEOPLASM OF PITUITARY GLAND (2) AIDS (acquired immunodeficiency syndrome), CD4 >=500 Code(s): B20 - HUMAN IMMUNODEFICIENCY VIRUS [HIV] DISEASE (3) Failure to thrive Code(s): CDS3157 - Qualifiers: Failure to thrive age range: in adult Qualified Code(s): R62.7 - Adult failure to thrive (4) Failure to thrive Code(s): [id number] - Qualifiers: Failure to thrive age range: in adult Qualified Code(s): R62.7 - Adult failure to thrive (5) Hypocalcemia Code(s): E83.51 - HYPOCALCEMIA (6) Hypoglycemia Code(s): E16.2 - HYPOGLYCEMIA, UNSPECIFIED Assessment/Plan Current Active Problems pituitary adenoma /adrenal deficiency AIDS (acquired immunodeficiency syndrome), CD4 >=500 (Acute) Altered mental status (Acute) CAD (coronary artery disease) (Acute) Eosinopenia (Acute) Failure to thrive (Acute) Failure to thrive (Acute) Hypocalcemia (Acute) Hypoglycemia (Acute) Malnutrition compromising bodily function (Acute) Abnormal Lab Results 04/11/18 04/13/18 04/13/18 15:00 07:05 07:05 Neutrophils % 29.2 L Neutrophils % (Manual) 28.0 L Eosinophils % 25.4 H* Eosinophils % (Manual) 28.0 H Basophils % 2.2 H Calcium 8.2 L ALT 12 L Total Protein 6.3 L Albumin 3.2 L Vitamin D 25-Hydroxy 24.2 L Laboratory Results - last 24 hr 04/11/18 04/11/18 04/12/18 14:23 15:00 06:30 WBC RBC Hgb Hct MCV MCH MCHC RDW Plt Count MPV Absolute Neuts (auto) Neutrophils % Neutrophils % (Manual) Band Neutrophils % Lymphocytes % Lymphocytes % (Manual) Monocytes % Monocytes % (Manual) Eosinophils % Eosinophils % (Manual) Basophils % Basophils % (Manual) Myelocytes % (Man) Promyelocytes % (Man) Blast Cells % (Manual) Nucleated RBC % Metamyelocytes Hypochromia Platelet Estimate Platelet Comment Polychromasia Poikilocytosis Anisocytosis Microcytosis Macrocytosis Sodium Potassium Chloride Carbon Dioxide Anion Gap BUN Creatinine Creat Clearance w eGFR POC Glucometer Random Glucose Calcium Phosphorus 3.2 Total Bilirubin AST ALT Alkaline Phosphatase Total Protein Albumin Vitamin D 25-Hydroxy 24.2 L PTH Intact 24 Cortisol AM Sample ACTH 04/12/18 04/12/18 04/13/18 06:30 09:13 07:05 WBC 8.3 RBC 4.01 Hgb 12.0 Hct 37.1 MCV 92.6 MCH 30.0 MCHC 32.4 RDW 14.1 Plt Count 270 MPV 8.9 Absolute Neuts (auto) 2.4 Neutrophils % 29.2 L Neutrophils % (Manual) 28.0 L Band Neutrophils % 3.0 Lymphocytes % 38.2 Lymphocytes % (Manual) 27.0 D Monocytes % 5.0 Monocytes % (Manual) 5 D Eosinophils % 25.4 H* Eosinophils % (Manual) 28.0 H Basophils % 2.2 H Basophils % (Manual) 0.0 Myelocytes % (Man) 0 Promyelocytes % (Man) 0 Blast Cells % (Manual) 0 Nucleated RBC % 0 Metamyelocytes 0 Hypochromia 0 Platelet Estimate Normal Platelet Comment Present Polychromasia 0 Poikilocytosis 0 Anisocytosis 2+ Microcytosis 2+ Macrocytosis 0 Sodium Potassium Chloride Carbon Dioxide Anion Gap BUN Creatinine Creat Clearance w eGFR POC Glucometer Random Glucose Calcium Phosphorus Total Bilirubin AST ALT Alkaline Phosphatase Total Protein Albumin Vitamin D 25-Hydroxy PTH Intact Cortisol AM Sample 8.4 ACTH 10.0 04/13/18 04/13/18 04/13/18 07:05 07:49 11:32 WBC RBC Hgb Hct MCV MCH MCHC RDW Plt Count MPV Absolute Neuts (auto) Neutrophils % Neutrophils % (Manual) Band Neutrophils % Lymphocytes % Lymphocytes % (Manual) Monocytes % Monocytes % (Manual) Eosinophils % Eosinophils % (Manual) Basophils % Basophils % (Manual) Myelocytes % (Man) Promyelocytes % (Man) Blast Cells % (Manual) Nucleated RBC % Metamyelocytes Hypochromia Platelet Estimate Platelet Comment Polychromasia Poikilocytosis Anisocytosis Microcytosis Macrocytosis Sodium 140 Potassium 3.9 Chloride 107 Carbon Dioxide 24 Anion Gap 9 BUN 9 Creatinine 1.3 Creat Clearance w eGFR 56.31 POC Glucometer 79 95 Random Glucose 77 Calcium 8.2 L Phosphorus Total Bilirubin 0.8 AST 19 ALT 12 L Alkaline Phosphatase 107 Total Protein 6.3 L Albumin 3.2 L Vitamin D 25-Hydroxy PTH Intact Cortisol AM Sample ACTH 04/13/18 17:09 WBC RBC Hgb Hct MCV MCH MCHC RDW Plt Count MPV Absolute Neuts (auto) Neutrophils % Neutrophils % (Manual) Band Neutrophils % Lymphocytes % Lymphocytes % (Manual) Monocytes % Monocytes % (Manual) Eosinophils % Eosinophils % (Manual) Basophils % Basophils % (Manual) Myelocytes % (Man) Promyelocytes % (Man) Blast Cells % (Manual) Nucleated RBC % Metamyelocytes Hypochromia Platelet Estimate Platelet Comment Polychromasia Poikilocytosis Anisocytosis Microcytosis Macrocytosis Sodium Potassium Chloride Carbon Dioxide Anion Gap BUN Creatinine Creat Clearance w eGFR POC Glucometer 104 Random Glucose Calcium Phosphorus Total Bilirubin AST ALT Alkaline Phosphatase Total Protein Albumin Vitamin D 25-Hydroxy PTH Intact Cortisol AM Sample ACTH plan: cosyntropin stim test cortisol level 30 and 60min post stim test prolactin tsh free t4
--- NOTE | 2018-04-13 19:32 | PN ---
Progress Note (short form) - Note Progress Note: ID Consult dictated
[2018-04-13] MEDS: ATORVASTATIN CA 10 MG TABLET (FP) PO SCH (22:03)
[2018-04-14] MEDS ORDERED: INSULIN (NOVOLOG) ASPART 100 UNITS/ML 10ML VIAL ONE (05:43)
[2018-04-14] MEDS: DOCUSATE SODIUM 100 MG CAPSULE (FP) PO SCH ×3 (06:07→21:58)
[2018-04-14] MEDS: HEPARIN NA (PORCINE) 5,000 UNITS/ML 1ML VIAL SQ SCH ×3 (06:07→21:59)
[2018-04-14] MEDS ORDERED: COSYNTROPIN 0.25 MG VIAL IVPUSH ONE (06:30)
[2018-04-14] MEDS ORDERED: PT OWN MED DRAWER 7, Y5N ONE ×2 (06:58→09:24)
[2018-04-14] MEDS ORDERED: COSYNTROPIN 0.25 MG VIAL IVPUSH SCH (07:00)
[2018-04-14 08:11] LABS: BASO % 0.9 % (0-2.0); EOS % 18.4 % (0-4.5); HEMATOCRIT 37.5 % (35.4-49); HEMOGLOBIN 12.3 GM/dL (11.7-16.9); LYMPH % 29.4 % (8-40); MCH 30.2 pg (25.7-33.7); MCHC 32.7 g/dl (32.0-35.9); MEAN CELL VOLUME 92.2 fl (80-96); MEAN PLT VOLUME 9.2 fl (7.5-11.1); MONO % 6.9 % (3.8-10.2); NEUT % 44.4 % (42.8-82.8); PLATELET COUNT 286 K/MM3 (134-434); RBC 4.06 M/mm3 (4.00-5.60); RDW 13.9 % (11.9-15.9); WHITE BLOOD COUNT 7.7 K/mm3 (4.0-10.0)
[2018-04-14 08:42] LABS: ANION GAP 11 MMOL/L (8-16); BLOOD UREA NITROGEN 10 mg/dL (7-18); CALCIUM 8.9 mg/dL (8.5-10.1); CHLORIDE 102 mmol/L (98-107); CO2 24 mmol/L (21-32); CREATININE 1.4 mg/dL (0.55-1.3); GLUCOSE,RANDOM 80 mg/dL (74-106); POTASSIUM 3.8 mmol/L (3.5-5.1); SODIUM 137 mmol/L (136-145)
--- NOTE | 2018-04-14 08:49 | CONS ---
DATE OF CONSULTATION: DATE OF DICTATION: 04/13/2018 The patient is a 62-year-old male with history of HIV infection evaluated for HIV status. The patient was admitted to the hospital on April 11, 2018, with a 3-day history of generalized weakness, lightheadedness, and fatigue as well as poor oral intake. Apparently, he was hypoglycemic at home. The patient reports that his home health aide called 9-1-1 because of the above symptoms. He was evaluated in the emergency room, where a CT scan revealed a brain mass. According to the notes, he has a known history of a pituitary adenoma and has declined surgical intervention in the past. His hospital course has been complicated by low-grade fever and elevated eosinophil count. On review of his laboratory data, it appears that he has had an elevated eosinophil count dating back to at least 2013. With respect to his HIV disease, he reports that he is adherent to antiretroviral therapy, has an undetectable viral load, and a T-cell count of 842. PAST MEDICAL HISTORY: Positive for HIV infection, hypertension, hyperlipidemia, hepatitis C, cirrhosis, coronary artery disease. PAST SURGICAL HISTORY: Status post cardiac valve replacements x2; details not available. ALLERGIES: SULFA. MEDICATIONS: Aspirin; Lipitor; Truvada; Isentress. SOCIAL HISTORY: Former IV drug user. LABORATORY DATA: White count 8.3 with 25% eosinophils, hematocrit 37.1, platelet count 270. Creatinine is 1.3. Urinalysis negative. Chest x-ray negative. PHYSICAL EXAMINATION: General: He is chronically ill-appearing. Vital Signs: Temperature 99.2, blood pressure 122/59, pulse 69 and regular, respirations 18/min. HEENT: Sclerae anicteric. Positive temporal wasting. Dry mucous membranes. Heart Sounds: S1, S2. Lungs: Clear. Abdomen: Soft and nontender. Extremities: Negative for edema. IMPRESSION: 1. Failure to thrive. 2. Eosinophilia, chronic in nature, unclear etiology. 3. Human immunodeficiency virus positive, possible acquired immunodeficiency syndrome. 4. Known history of pituitary adenoma. Obtain CD4 lymphocyte count, obtain records from his provider at [facility], continue antiretroviral therapy, neurosurgical evaluation. Will obtain strongyloides antibody, in light of chronic eosinophilia. Observe off antibiotic therapy. Thank you for the kind referral. STAHYA CHILDERS M.D. [id number]
[2018-04-14] MEDS: ASPIRIN COATED 81 MG TABLET.EC PO SCH (09:48)
[2018-04-14] MEDS: metoPROLOL SUCCINATE 25 MG TAB.SR.24H (FP) PO SCH (09:48)
[2018-04-14] MEDS: DOLUTEGRAVIR SODIUM 50 MG TABLET (NON-FORMULARY) PO SCH (09:49)
[2018-04-14] MEDS: EMTRICITABINE 200MG/TENOFOVIR 300MG PO SCH ×2 (09:50→09:59)
--- NOTE | 2018-04-14 11:05 | PN ---
Progress Note, Physician Chief Complaint: Feels improved, no episode of Hypoglycemia - Current Medication List Current Medications: Active Medications Aspirin (Ecotrin -) 81 mg PO DAILY [facility] Last Admin: 04/14/18 09:48 Dose: 81 mg Atorvastatin Calcium (Lipitor -) 10 mg PO HS [facility] Last Admin: 04/13/18 22:03 Dose: 10 mg Docusate Sodium (Colace -) 100 mg PO TID [facility] Last Admin: 04/14/18 06:07 Dose: Not Given Emtricitabine/Tenofovir (Truvada) 1 tab PO DAILY [facility] Last Admin: 04/14/18 09:59 Dose: Not Given Heparin Sodium (Porcine) (Heparin -) 5,000 unit SQ TID [facility] Last Admin: 04/14/18 06:07 Dose: Not Given Metoprolol Succinate (Toprol Xl -) 25 mg PO DAILY [facility] Last Admin: 04/14/18 09:48 Dose: Not Given Oxycodone HCl (Roxicodone -) 10 mg PO Q6H PRN PRN Reason: PAIN 7-10 Last Admin: 04/13/18 23:58 Dose: 10 mg - Objective Vital Signs: Vital Signs Temperature 97.4 F L 04/14/18 06:00 Pulse Rate 65 04/14/18 06:00 Respiratory Rate 18 04/14/18 09:00 Blood Pressure 108/63 04/14/18 06:00 O2 Sat by Pulse Oximetry (%) 95 04/13/18 09:00 Elderly man looks cachectic and sick not in distress HEENT: MM moist temporal wasting NECK: No JVD No Bruit CHEST: CTA B/L CVS: s1S2 R SM MA ABD: No distention, non tender, BS + EXT: No edema feet no calf tenderness, Pulses + [employer]: AOX3 non focal Labs: CBC, BMP 04/14/18 07:30 04/14/18 07:30 INR, PTT INR 1.11 (0.83-1.09) H 04/11/18 12:10 Problem List - Problems (1) Failure to thrive Assessment/Plan: Multi factorial low BMI, can be HIV cachexia, H/O Hep C never treated for all care , low am cortisol , Endo on the board awaiting Cosyntropin stimulation test encourage PO intake. Code(s): CBB5885 - Qualifiers: Failure to thrive age range: in adult Qualified Code(s): R62.7 - Adult failure to thrive (2) Hypoglycemia Assessment/Plan: Patient has H/O Cirrhosis , low body mass now presenent with recurrent episode of Hypoglycemia, considering liver disease can be multilateral including impaired Gluconeogenesis, low muscle mass , possibility of adrenal insufficiency low normal am cortisol Endo input appreciated F/O Cosyntropin stimulation test result. Code(s): E16.2 - HYPOGLYCEMIA, UNSPECIFIED (3) Eosinopenia Assessment/Plan: can be HIV related can be due to adrenal insufficiency F/U Strongyloid ag Code(s): D72.818 - OTHER DECREASED WHITE BLOOD CELL COUNT (4) AIDS (acquired immunodeficiency syndrome), CD4 >=500 Assessment/Plan: Last CD4 > 800 last month at [facility] complaint with ARVT F/U at [facility] Code(s): B20 - HUMAN IMMUNODEFICIENCY VIRUS [HIV] DISEASE (5) Malnutrition compromising bodily function Assessment/Plan: Nutrition consult Code(s): E46 - UNSPECIFIED PROTEIN-CALORIE MALNUTRITION (6) Hepatitis C Assessment/Plan: F/U AFP and liver ultrasound treated in the past Code(s): B19.20 - UNSPECIFIED VIRAL HEPATITIS C WITHOUT HEPATIC COMA Qualifiers: Viral hepatitis chronicity: chronic (7) Hypocalcemia Assessment/Plan: resolved F/O PTH Code(s): E83.51 - HYPOCALCEMIA (8) H/O mitral valve replacement Assessment/Plan: No active issue F/U his [employer] Code(s): Z95.2 - PRESENCE OF PROSTHETIC HEART VALVE (9) CAD (coronary artery disease) Assessment/Plan: as per previous cardiology H/O + NST on medical management therapy, no active issue at present Code(s): I25.10 - ATHSCL HEART DISEASE OF [place] CORONARY ARTERY W/O ANG PCTRS
[2018-04-14] MEDS: oxyCODONE HCL 5 MG TABLET PO PRN ×2 (12:44→18:28)
--- NOTE | 2018-04-14 20:42 | PN ---
Progress Note, Physician Chief Complaint: weakness poor appetite History of Present Illness: 62 y/o M w/ PMHx HIV (reportedly compliant w/ ART, CD4 842 in February), Hepatitis C, cirrhosis, CAD w/ 2 valve replacements, HTN, HLD, IVDA, p/w severe lightheadedness, anorexia, dizziness, fatigue x 3-4 days. has hypotension, weakness - Current Medication List Current Medications: Active Medications Aspirin (Ecotrin -) 81 mg PO DAILY [facility] Last Admin: 04/14/18 09:48 Dose: 81 mg Atorvastatin Calcium (Lipitor -) 10 mg PO HS [facility] Last Admin: 04/13/18 22:03 Dose: 10 mg Docusate Sodium (Colace -) 100 mg PO TID [facility] Last Admin: 04/14/18 15:35 Dose: Not Given Emtricitabine/Tenofovir (Truvada) 1 tab PO DAILY [facility] Last Admin: 04/14/18 09:59 Dose: Not Given Heparin Sodium (Porcine) (Heparin -) 5,000 unit SQ TID [facility] Last Admin: 04/14/18 15:35 Dose: Not Given Metoprolol Succinate (Toprol Xl -) 25 mg PO DAILY [facility] Last Admin: 04/14/18 09:48 Dose: Not Given Oxycodone HCl (Roxicodone -) 10 mg PO Q6H PRN PRN Reason: PAIN 7-10 Last Admin: 04/14/18 18:28 Dose: 10 mg - Objective Vital Signs: Vital Signs Temperature 97.8 F 04/14/18 14:00 Pulse Rate 62 04/14/18 14:00 Respiratory Rate 18 04/14/18 14:00 Blood Pressure 102/53 L 04/14/18 14:00 O2 Sat by Pulse Oximetry (%) 95 04/13/18 09:00 Constitutional: Yes: Calm Eyes: Yes: EOM Intact HENT: Yes: Normocephalic Neck: Yes: Trachea Midline Cardiovascular: Yes: Regular Rate and Rhythm Respiratory: Yes: CTA Bilaterally Gastrointestinal: Yes: Normal Bowel Sounds ...Rectal Exam: Yes: Deferred Genitourinary: Yes: WNL Breast(s): Yes: WNL Extremities: Yes: WNL Neurological: Yes: Alert, Oriented Labs: CBC, BMP 04/14/18 07:30 04/14/18 07:30 INR, PTT INR 1.11 (0.83-1.09) H 04/11/18 12:10 Problem List - Problems (1) Pituitary adenoma Code(s): D35.2 - BENIGN NEOPLASM OF [place]IT[place]ARY [place] (2) AIDS (acquired immunodeficiency syndrome), CD4 >=500 Code(s): B20 - HUMAN IMMUNODEFICIENCY VIRUS [HIV] DISEASE (3) Failure to thrive Code(s): ELI1294 - Qualifiers: Failure to thrive age range: in adult Qualified Code(s): R62.7 - Adult failure to thrive (4) Failure to thrive Code(s): NMP5143 - Qualifiers: Failure to thrive age range: in adult Qualified Code(s): R62.7 - Adult failure to thrive (5) Hypocalcemia Code(s): E83.51 - HYPOCALCEMIA (6) Hypoglycemia Code(s): E16.2 - HYPOGLYCEMIA, UNSPECIFIED Assessment/Plan Current Active Problems AIDS (acquired immunodeficiency syndrome), CD4 >=500 (Acute) Altered mental status (Acute) CAD (coronary artery disease) (Acute) Eosinopenia (Acute) Failure to thrive (Acute) Failure to thrive (Acute) Hypocalcemia (Acute) Hypoglycemia (Acute) Malnutrition compromising bodily function (Acute) Pituitary adenoma (Acute) Abnormal Lab Results 04/14/18 04/14/18 07:30 07:30 Eosinophils % 18.4 H Creatinine 1.4 H Laboratory Results - last 24 hr 04/12/18 04/13/18 04/13/18 06:30 07:05 21:19 WBC RBC Hgb Hct MCV MCH MCHC RDW Plt Count MPV Absolute Neuts (auto) Neutrophils % Lymphocytes % Monocytes % Eosinophils % Basophils % Nucleated RBC % Sodium Potassium Chloride Carbon Dioxide Anion Gap BUN Creatinine Creat Clearance w eGFR POC Glucometer 102 Random Glucose Calcium Tumor Marker AFP 1.8 Human Growth Hormone 0.5 Cortisol AM Sample 04/14/18 04/14/18 04/14/18 06:16 07:30 07:30 WBC 7.7 RBC 4.06 Hgb 12.3 Hct 37.5 MCV 92.2 MCH 30.2 MCHC 32.7 RDW 13.9 Plt Count 286 MPV 9.2 Absolute Neuts (auto) 3.4 Neutrophils % 44.4 D Lymphocytes % 29.4 D Monocytes % 6.9 Eosinophils % 18.4 H Basophils % 0.9 Nucleated RBC % 0 Sodium 137 Potassium 3.8 Chloride 102 Carbon Dioxide 24 Anion Gap 11 BUN 10 Creatinine 1.4 H Creat Clearance w eGFR 51.69 POC Glucometer 92 Random Glucose 80 Calcium 8.9 Tumor Marker AFP Human Growth Hormone Cortisol AM Sample 04/14/18 04/14/18 07:30 19:06 WBC RBC Hgb Hct MCV MCH MCHC RDW Plt Count MPV Absolute Neuts (auto) Neutrophils % Lymphocytes % Monocytes % Eosinophils % Basophils % Nucleated RBC % Sodium Potassium Chloride Carbon Dioxide Anion Gap BUN Creatinine Creat Clearance w eGFR POC Glucometer 120 Random Glucose Calcium Tumor Marker AFP Human Growth Hormone Cortisol AM Sample Cancelled plan: cosyntropin testing in progress, start florinef .1mg hs awaiting cortisol levels
[2018-04-14] MEDS: ATORVASTATIN CA 10 MG TABLET (FP) PO SCH (21:59)
[2018-04-15] MEDS: oxyCODONE HCL 5 MG TABLET PO PRN ×3 (00:23→13:31)
[2018-04-15] MEDS ORDERED: MAG HYDROX/AL HYDROX/SIMETH 30 ML UNIT-DOSE CUP PO ONE (01:00)
[2018-04-15] MEDS: DOCUSATE SODIUM 100 MG CAPSULE (FP) PO SCH ×2 (06:49→13:07)
[2018-04-15] MEDS: HEPARIN NA (PORCINE) 5,000 UNITS/ML 1ML VIAL SQ SCH ×2 (06:49→13:08)
[2018-04-15] MEDS ORDERED: PT OWN MED DRAWER 7, Y5N ONE ×2 (10:23→13:00)
[2018-04-15] MEDS: metoPROLOL SUCCINATE 25 MG TAB.SR.24H (FP) PO SCH (10:25)
[2018-04-15] MEDS: EMTRICITABINE 200MG/TENOFOVIR 300MG PO SCH ×2 (10:25→10:34)
[2018-04-15] MEDS: ASPIRIN COATED 81 MG TABLET.EC PO SCH (10:25)
[2018-04-15] MEDS: DOLUTEGRAVIR SODIUM 50 MG TABLET (NON-FORMULARY) PO SCH (10:26)
[2018-04-15] MEDS ORDERED: MEGESTROL ACETATE 400 MG/10 ML UNIT DOSE CUP PO SCH (12:00)
--- NOTE | 2018-04-15 13:56 | PN ---
Progress Note, Physician History of Present Illness: Awake, alert Ambulatory Still with occasional cough Repeat CXR (-) No c/o fever/ chills No diarrhea - Current Medication List Current Medications: Active Medications Aspirin (Ecotrin -) 81 mg PO DAILY [facility] Last Admin: 04/15/18 10:25 Dose: 81 mg Atorvastatin Calcium (Lipitor -) 10 mg PO HS [facility] Last Admin: 04/14/18 21:59 Dose: 10 mg Docusate Sodium (Colace -) 100 mg PO TID [facility] Last Admin: 04/15/18 13:07 Dose: Not Given Emtricitabine/Tenofovir (Truvada) 1 tab PO DAILY [facility] Last Admin: 04/15/18 10:34 Dose: Not Given Heparin Sodium (Porcine) (Heparin -) 5,000 unit SQ TID [facility] Last Admin: 04/15/18 13:08 Dose: Not Given Megestrol Acetate (Megace Oral Suspension -) 400 mg PO DAILY [facility] Last Admin: 04/15/18 13:07 Dose: 400 mg Metoprolol Succinate (Toprol Xl -) 25 mg PO DAILY [facility] Last Admin: 04/15/18 10:25 Dose: Not Given Oxycodone HCl (Roxicodone -) 10 mg PO Q6H PRN PRN Reason: PAIN 7-10 Last Admin: 04/15/18 13:31 Dose: 10 mg - Objective Vital Signs: Vital Signs Temperature 97.6 F 04/15/18 10:26 Pulse Rate 56 L 04/15/18 10:26 Respiratory Rate 20 04/15/18 10:26 Blood Pressure 92/48 L 04/15/18 10:26 O2 Sat by Pulse Oximetry (%) 95 04/13/18 09:00 Constitutional: Yes: No Distress Eyes: Yes: Conjunctiva Clear Cardiovascular: Yes: Regular Rate and Rhythm, S1, S2 Respiratory: Yes: CTA Bilaterally Gastrointestinal: Yes: Normal Bowel Sounds, Soft. No: Tenderness Edema: No Labs: CBC, BMP 04/14/18 07:30 04/14/18 07:30 INR, PTT INR 1.11 (0.83-1.09) H 04/11/18 12:10 Assessment/Plan S/P near syncope Pituitary mass HIV + CD4 > 800 Eosinophilia Observe off antibiotics ART Check CD4 Strongeloides AB ordered Stool O&P as outpatient F/U [facility]
--- NOTE | 2018-04-15 15:36 | PN ---
Teaching Attending Note Name of Resident: David Rodrigues ATTENDING PHYSICIAN STATEMENT I saw and evaluated the patient. I reviewed the resident's note and discussed the case with the resident. I agree with the resident's findings and plan as documented. SUBJECTIVE: Patient has cough, but otherwise no complaints. OBJECTIVE: Vital Signs Period Temp Pulse Resp BP Sys/[place] Pulse Ox Last 24 Hr 97.6 F-98.4 F 55-56 18-20 92-110/48-53 HEART: S1S2, RRR LUNGS: Clear ABDOMEN: Soft, non-tender, non-distended, normal BS EXTREMITIES: No edema Laboratory Results - last 24 hr 04/14/18 04/14/18 04/15/18 19:06 21:16 06:03 POC Glucometer 120 144 93 04/15/18 11:25 POC Glucometer 101 Current Medications Generic Name Dose Route Start Last Admin Trade Name Freq PRN Reason Stop Dose Admin Aspirin 81 mg 04/12/18 10:00 04/15/18 10:25 Ecotrin - PO 81 mg DAILY [facility] Administration Atorvastatin Calcium 10 mg 04/11/18 22:00 04/14/18 21:59 Lipitor - PO 10 mg HS [facility] Administration Docusate Sodium 100 mg 04/11/18 22:00 04/15/18 13:07 Colace - PO Not Given TID [facility] Emtricitabine/Tenofovir 1 tab 04/12/18 10:00 04/15/18 10:34 Truvada PO Not Given DAILY [facility] Heparin Sodium (Porcine) 5,000 unit 04/11/18 23:15 04/15/18 13:08 Heparin - SQ Not Given TID [facility] Megestrol Acetate 400 mg 04/15/18 12:00 04/15/18 13:07 Megace Oral Suspension - PO 400 mg DAILY [facility] Administration Metoprolol Succinate 25 mg 04/12/18 10:00 04/15/18 10:25 Toprol Xl - PO Not Given DAILY [facility] Oxycodone HCl 10 mg 04/11/18 14:37 04/15/18 13:31 Roxicodone - PO 10 mg Q6H PRN Administration PAIN 7-10 ASSESSMENT AND PLAN: This is a 62 year old man with a history of HIV, hepatitis C, CAD, HTN, hyperlipidemia, valve replacement, IV drug abuse who presented to the ED with dizziness and fatigue. 1. Acute metabolic encephalopathy secondary to hypoglycemia - Improved 2. Failure to thrive - Continue Megace 3. Hypocalcemia - Improved 4. HIV - Continue Truvada 5. Hepatitis C - Previously treated 6. Hypertension - Continue Toprol XL 7. Hyperlipidemia - Continue Lipitor 8. CAD - Continue aspirin, Toprol XL, Lipitor 9. History of bioprosthetic MV replacement 10. Stage 3 CKD 11. Disposition - Ok for discharge home today
[2018-04-15 16:07] VITALS: BP 104/54; PULSE 55; TEMP 98.3
--- NOTE | 2018-04-15 16:49 | DS ---
Physical Exam: SUBJECTIVE:Patient seen and examined at bedside. No overnight events. No new complaints. Feels much better. Cough persist. Eager to go home. Denies CP,SIMON, SOB, abdominal pain, nausea or vomiting. OBJECTIVE: Vital Signs Period Temp Pulse Resp BP Sys/[place] Pulse Ox Last 24 Hr 97.6 F-98.4 F 55-56 18-20 92-110/48-54 PHYSICAL EXAM GENERAL: Awake and alert. thin and frail , NAD HEAD: NCAT EYES: PERRL, EOMI, sclera anicteric, conjunctiva clear. No ptosis. ENT: moist mucous membranes. NECK: supple. LUNGS: CTAB, no wheezes, no crackles, no accessory muscle use. HEART: RRR, S1, S2 , SM RSB ABDOMEN: Soft, scaphoid, NTND, NABS, no guarding, no rebound, no hepatosplenomegaly, no masses. EXTREMITIES: 2+ pulses, warm, well-perfused, no edema. NEUROLOGICAL: Cranial nerves II through XII grossly intact. Normal speech, gait not observed. PSYCH: Normal mood, normal affect. SKIN: Warm, dry, normal turgor, no rashes or lesions noted LABS Laboratory Results - last 24 hr 04/14/18 04/14/18 04/15/18 19:06 21:16 06:03 POC Glucometer 120 144 93 04/15/18 11:25 POC Glucometer 101 HOSPITAL COURSE: 62 year old man with history of HTN, HLD, HIV disease (CD4 842 02/2018) on HAART , Hep C, Cirrhosis and CAD, who presents with lightheadedness placed on observation for hypoglycemia and AMS. Initially brain CT showed 3cm Pituitary mass which was know to patient. This was discovered at [facility] where he receives all his care. He adamantly declines neurosurgical intervention. He was found to be hypocalcemic and was corrected with calcium gluconate. Intact PTH was sent and was within normal limits. In terms of his HIV he continued his home medication of Biktarvy. His hypoglycemia was managed with Dextrose and increased PO intake. His glucose reading have been >90 for past three days and stable. In order to investigate this further Cosyntropin stimulation test, HGH , ACTH and AM cortisol levels were measure and were all within normal limits. His hypoglycemia most likely result of decreased PO intake and liver disease causing decrease gluconeogenesis. He will be sent today with prescription for Megace which he says has helped in past. Tumor markers AFP was also normal. He is instructed to follow up with his primary care team in [facility]. He is stable for discharge today with home VNS. Date of Admission:04/11/18 Date of Discharge: 04/15/18 Minutes to complete discharge: 32 Discharge Summary Reason For Visit: FAILURE TO THRIVE Condition: Improved - Instructions Diet, Activity, Other Instructions: You have been seen and treated for low sugars. This was most likely a result of you not eating and your chronic liver disease. Please make sure to resume a regular balanced diet. Increase your activity as tolerated. Please follow up with your primary doctor and Infectious disease specialist in one week. A prescription has been sent to your pharmacy for the Megace that helps with your appetite. Please take solution once daily by mouth. Resume all other medications as previously prescribed. If you experience worsening pain, fever, or chills please return to ER immediately. Referrals: Lili England MD [Primary Care Provider] - 1 Week Kristofer Crawley MD [Non Staff, Medical] - 1 Week Disposition: VNS/HOME HEALTH CARE - Home Medications Comprehensive Discharge Medication List: Ambulatory Orders Docusate Sodium [Colace -] 100 mg PO TID 09/20/15 Aspirin Coated [Ecotrin -] 81 mg PO DAILY #30 tablet.ec 09/21/15 Metoprolol Succinate [Toprol XL -] 25 mg PO DAILY #30 tab.sr.24h 09/21/15 Oxycodone HCl 10 mg PO Q6H PRN 09/21/15 Atorvastatin Ca [Lipitor] 10 mg PO HS #30 tablet 09/26/15 Biktarvy 50-200-25 mg Tablet 50 mg 04/14/18 Megestrol Acetate Oral Susp [Megace Oral Suspension -] 400 mg PO DAILY #30 cup 04/15/18 Problem List - Problems (1) Altered mental status (2) Failure to thrive (3) Hypocalcemia (4) HIV (human immunodeficiency virus infection) (5) Hepatitis C (6) Hypertension (7) H/O mitral valve replacement (8) DVT prophylaxis Code(s): [id number] - This patient is new to me today: No Emergency Visit: Yes ED Registration Date: 04/11/18 Care time: The patient presented to the Emergency Department on the above date and was hospitalized for further evaluation of their emergent condition. Critical Care patient: No - Discharge Referral Referred to [facility] No
== END 2018-04-15 16:09 | disposition home health service (06) ==
LOC: JER 11:33 → J5S 21:36
PROVIDERS: ADMIT Internal Medicine; ATTEND Internal Medicine
PROC: 3E0337Z Introduction of Electrolytic and Water Balance Substance into Peripheral Vein, Percutaneous Approach (ICD-10-PCS; principal; 2018-04-11)
PROC: 3E0337Z Introduction of Electrolytic and Water Balance Substance into Peripheral Vein, Percutaneous Approach (ICD-10-PCS; 2018-04-11)
PROC: 3E0333Z Introduction of Anti-inflammatory into Peripheral Vein, Percutaneous Approach (ICD-10-PCS; 2018-04-11)
DX: R62.7 Adult failure to thrive (principal); B20 Human immunodeficiency virus [HIV] disease; R41.82 Altered mental status, unspecified; E83.51 Hypocalcemia; E16.2 Hypoglycemia, unspecified; E46 Unspecified protein-calorie malnutrition; D72.818 Other decreased white blood cell count; B18.2 Chronic viral hepatitis C; D35.2 Benign neoplasm of pituitary gland; I25.10 Atherosclerotic heart disease of native coronary artery without angina pectoris; I10 Essential (primary) hypertension; K74.60 Unspecified cirrhosis of liver; Z95.2 Presence of prosthetic heart valve; Z88.2 Allergy status to sulfonamides; Z88.8 Allergy status to other drugs, medicaments and biological substances
CPT/HCPCS: 36415; 36600; 70450-TC; 71045-TC-FY; 80048; 80053; 81003; 82024; 82105; 82140; 82306; 82375; 82533; 82550; 82803; 82962; 83003; 83050; 83605; 83735; 83970; 84100; 84484; 85025; 85610; 85730; 86359; 86360; 86682; 87040; 87086; 93005; 93010; 93306-TC; 99284-25; G0378; J0833; J1644; J7030

== ENCOUNTER 2020-07-27 16:07 | Inpatient (IN) | payer OTHER ==
[2020-07-27 16:32] VITALS: BMI 22.3
[2020-07-27] MEDS ORDERED: morphine CARPU-JECT 4 MG/1 ML DISP.SYRIN IVPUSH ONE ×2 (17:48→20:32)
[2020-07-27] MEDS ORDERED: morphine SULFATE 4 MG/ML VIAL ONE ×2 (18:16→20:42)
[2020-07-27 18:48] LABS: BASO % 0.8 % (0-2.0); EOS % 12.1 % (0-4.5); HEMATOCRIT 32.3 % (35.4-49); HEMOGLOBIN 10.6 GM/dL (11.7-16.9); MCH 28.9 pg (25.7-33.7); MCHC 32.9 g/dl (32.0-35.9); MEAN CELL VOLUME 87.7 fl (80-96); MEAN PLT VOLUME 9.1 fl (7.5-11.1); MONO % 4.2 % (3.8-10.2); NEUT % 55.9 % (42.8-82.8); PLATELET COUNT 236 K/MM3 (134-434); RBC 3.69 M/mm3 (4.00-5.60); WHITE BLOOD COUNT 7.6 K/mm3 (4.0-10.0)
[2020-07-27 18:57] LABS: INR 1.18 (0.83-1.09); PROTHROMBIN TIME (PATIENT) 14.4 SEC (9.7-13.0)
[2020-07-27 19:00] LABS: ACTIVATED PTT 32.5 SECONDS (25.2-36.5)
[2020-07-27 19:14] LABS: CHLORIDE 105 mmol/L (98-107); POTASSIUM 3.5 mmol/L (3.5-5.1); SODIUM 134 mmol/L (136-145)
[2020-07-27 19:16] LABS: CALCIUM 8.7 mg/dL (8.5-10.1)
[2020-07-27 19:17] LABS: ALBUMIN 3.2 g/dl (3.4-5.0); ANION GAP 5 MMOL/L (8-16); BLOOD UREA NITROGEN 18.8 mg/dL (7-18); CO2 23 mmol/L (21-32); GLUCOSE,RANDOM 79 mg/dL (74-106)
[2020-07-27 19:20] LABS: CREATININE 1.8 mg/dL (0.55-1.3); SGOT/AST 14 U/L (15-37); SGPT/ALT 10 U/L (13-61)
[2020-07-27 19:21] LABS: BILIRUBIN,TOTAL 0.4 mg/dL (0.2-1); TOT PROT 8.2 g/dl (6.4-8.2)
[2020-07-27 19:24] LABS: ALK PHOS 105 U/L (45-117)
[2020-07-27] MEDS ORDERED: SODIUM CHLORIDE 500 ML IV STA (19:25)
[2020-07-27 20:28] LABS: N-TERMINAL BNP 1852.9 pg/ml (5-125)
[2020-07-27] MEDS ORDERED: ACETAMINOPHEN 1000 MG/100 ML VIAL (NON FORMULARY) IVPB ONE (20:32)
[2020-07-27] MEDS ORDERED: ACETAMINOPHEN INJECTION 100 ML IVPB ONE (20:42)
[2020-07-27] MEDS ORDERED: morphine SULFATE 4 MG/ML VIAL IVPUSH ONE (23:30)
[2020-07-28] MEDS ORDERED: morphine SULFATE 4 MG/ML VIAL ONE (00:22)
[2020-07-28] MEDS ORDERED: MORPHINE SULFATE 2 MG/ML VIAL IVPUSH PRN ×3 (02:06→14:26)
[2020-07-28] MEDS ORDERED: ACETAMINOPHEN 1000 MG/100 ML VIAL (NON FORMULARY) IVPB PRN ×3 (02:16→14:26)
[2020-07-28] MEDS ORDERED: LACTATED RINGERS SOLUTION 1,000 ML/1,000 ML INFUS.BAG IV SCH ×2 (02:30→14:26)
[2020-07-28] MEDS ORDERED: MORPHINE SULFATE 2 MG/ML VIAL ONE (04:52)
[2020-07-28 08:03] LABS: HEMATOCRIT 30.4 % (35.4-49); HEMOGLOBIN 10.4 GM/dL (11.7-16.9); MCH 29.5 pg (25.7-33.7); MCHC 34.2 g/dl (32.0-35.9); MEAN CELL VOLUME 86.4 fl (80-96); MEAN PLT VOLUME 9.1 fl (7.5-11.1); PLATELET COUNT 236 K/MM3 (134-434); RBC 3.52 M/mm3 (4.00-5.60); RDW 15.8 % (11.9-15.9); WHITE BLOOD COUNT 6.5 K/mm3 (4.0-10.0)
[2020-07-28] MEDS ORDERED: ACETAMINOPHEN INJECTION 100 ML IVPB ONE (08:17)
[2020-07-28 08:31] LABS: CALCIUM 8.5 mg/dL (8.5-10.1)
[2020-07-28 08:32] LABS: BLOOD UREA NITROGEN 16.1 mg/dL (7-18); MAGNESIUM 2.6 mg/dL (1.8-2.4)
[2020-07-28 08:36] LABS: CREATININE 1.7 mg/dL (0.55-1.3); PHOSPHOROUS 3.2 mg/dL (2.5-4.9)
[2020-07-28] MEDS ORDERED: HEPARIN NA (PORCINE) 5,000 UNITS/ML 1ML VIAL SQ SCH (10:00)
[2020-07-28] MEDS ORDERED: HEPARIN NA (PORCINE) 5,000 UNITS/ML 1ML VIAL ONE (10:10)
[2020-07-28] MEDS: metoPROLOL SUCCINATE 25 MG TAB.SR.24H (FP) PO SCH ×2 (10:18→12:11)
[2020-07-28] MEDS ORDERED: LACTATED RINGERS SOLUTION 1,000 ML IV SCH (13:00)
[2020-07-28] MEDS ORDERED: PNEUMOC 13-VAL CONJ-DIP CRM/PF 0.5 ML DISP.SYRIN IM ONE (14:00)
[2020-07-28 15:25] VITALS: BP 136/54; PULSE 63; TEMP 97.8
[2020-07-28] MEDS ORDERED: CEFAZOLIN 2 GM/D5W 2 GM/50 ML ML IVPB SCH (21:00)
[2020-07-29] MEDS ORDERED: LACTATED RINGERS SOLUTION 1,000 ML/1,000 ML INFUS.BAG IV SCH ×2 (02:19)
[2020-07-29 08:07] LABS: PARATHYROID HORM INTACT 10 pg/mL (15-65)
[2020-07-29] MEDS ORDERED: ENOXAPARIN NA (PORCINE) 40 MG/0.4 ML DISP.SYRIN SQ SCH (10:00)
[2020-07-29] MEDS ORDERED: metoPROLOL SUCCINATE 25 MG TAB.SR.24H (FP) PO SCH (10:00)
== END 2020-07-28 18:28 | disposition short-term general hospital (02) | DRG 340 ==
LOC: JER 16:07 → JERBED 20:42 → J5S 07-28 10:38
PROVIDERS: ADMIT Internal Medicine; ATTEND Internal Medicine
DX: S72.144A Nondisplaced intertrochanteric fracture of right femur, initial encounter for closed fracture (principal); R64 Cachexia; B19.10 Unspecified viral hepatitis B without hepatic coma; I25.10 Atherosclerotic heart disease of native coronary artery without angina pectoris; K74.60 Unspecified cirrhosis of liver; Z21 Asymptomatic human immunodeficiency virus [HIV] infection status; B19.20 Unspecified viral hepatitis C without hepatic coma; I12.9 Hypertensive chronic kidney disease with stage 1 through stage 4 chronic kidney disease, or unspecified chronic kidney disease; N18.32 Chronic kidney disease, stage 3b; Z95.2 Presence of prosthetic heart valve; E78.5 Hyperlipidemia, unspecified; D35.2 Benign neoplasm of pituitary gland; D64.9 Anemia, unspecified; H54.60 Unqualified visual loss, one eye, unspecified; F14.10 Cocaine abuse, uncomplicated; F11.10 Opioid abuse, uncomplicated; F12.10 Cannabis abuse, uncomplicated; Z68.22 Body mass index [BMI] 22.0-22.9, adult; Z53.8 Procedure and treatment not carried out for other reasons; W05.1XXA Fall from non-moving nonmotorized scooter, initial encounter; Y93.89 Activity, other specified; Y99.8 Other external cause status; Y92.89 Other specified places as the place of occurrence of the external cause
CPT/HCPCS: 36415; 70450-TC; 71045-TC-FY; 73523-TC-FY; 73700-TC-RT; 76775-TC; 80048; 80053; 82728; 83540; 83550; 83735; 83880; 83970; 84100; 84146; 84484; 85025; 85027; 85045; 85610; 85730; 86359; 86360; 86850; 86900; 86901; 93005; 93010; 94010; 99285-25; C9803; J0131; J1644; U0003

== ENCOUNTER 2020-12-23 07:58 | Emergency (ER) | payer OTHER ==
[2020-12-23 08:06] VITALS: TEMP 98; BMI 21.7
[2020-12-23] MEDS ORDERED: BACITRACIN 15 GM TUBE TOPICAL OINTMENT ONE (11:43)
[2020-12-23 12:21] VITALS: BP 112/58; PULSE 72
== END 2020-12-23 13:25 | disposition home or self-care (01) ==
LOC: JER 07:58
DX: M25.552 Pain in left hip (principal)
CPT/HCPCS: 73523-TC-FY; 99283-25

== ENCOUNTER 2021-01-05 10:09 | Inpatient (IN) | payer OTHER ==
[2021-01-05 10:22] VITALS: BMI 20.7
[2021-01-05] MEDS ORDERED: SODIUM CHLORIDE 2,000 ML IV STA (11:29)
[2021-01-05 12:28] LABS: BASO % 0.9 % (0-2.0); EOS % 5.4 % (0-4.5); HEMOGLOBIN 12.9 GM/dL (11.7-16.9); LYMPH % 35.1 % (8-40); MCH 27.9 pg (25.7-33.7); MCHC 32.2 g/dl (32.0-35.9); MEAN CELL VOLUME 86.5 fl (80-96); MEAN PLT VOLUME 8.5 fl (7.5-11.1); MONO % 6.7 % (3.8-10.2); NEUT % 51.9 % (42.8-82.8); PLATELET COUNT 487 10^3/uL (134-434); RBC 4.62 M/mm3 (4.00-5.60); RDW 18.6 % (11.9-15.9); WHITE BLOOD COUNT 8.7 K/mm3 (4.0-10.0)
[2021-01-05 12:35] LABS: EPI CELLS 10 /uL (0-25.1); HYALINE CASTS 0 /uL (0-3.1); URINE APPEARANCE CLEAR; URINE BACTERIA 1 /uL (0-1359); URINE BILIRUBIN NEGATIVE (NEGATIVE); URINE COLOR YELLOW; URINE GLUCOSE (UA) NEGATIVE (NEGATIVE); URINE KETONE NEGATIVE (NEGATIVE); URINE LEUK ESTERASE NEGATIVE (NEGATIVE); URINE NITRITE NEGATIVE (NEGATIVE); URINE PROTEIN 2+ (NEGATIVE); URINE RBC 7 /uL (0-23.9); URINE UROBILINOGEN 0.2 mg/dL (0.2-1.0); URINE WBC 16 /uL (0-25.8)
[2021-01-05 12:50] LABS: CHLORIDE 112 mmol/L (98-107); SODIUM 143 mmol/L (136-145)
[2021-01-05 12:52] LABS: ANION GAP 11 MMOL/L (8-16); CALCIUM 9.1 mg/dL (8.5-10.1); CO2 20 mmol/L (21-32)
[2021-01-05 12:53] LABS: BLOOD UREA NITROGEN 17.5 mg/dL (7-18); GLUCOSE,RANDOM 78 mg/dL (74-106); MAGNESIUM 2.7 mg/dL (1.8-2.4)
[2021-01-05 12:55] LABS: SGPT/ALT 12 U/L (13-61)
[2021-01-05 12:56] LABS: CREATININE 3.2 mg/dL (0.55-1.3); SGOT/AST 8 U/L (15-37)
[2021-01-05 12:57] LABS: BILIRUBIN,TOTAL 0.4 mg/dL (0.2-1); TOT PROT 8.1 g/dl (6.4-8.2)
[2021-01-05 12:58] LABS: ALK PHOS 178 U/L (45-117)
[2021-01-05 13:04] LABS: ALBUMIN 3.2 g/dl (3.4-5.0)
[2021-01-05] MEDS ORDERED: SODIUM CHLORIDE 1,000 ML IV SCH (15:00)
[2021-01-05] MEDS ORDERED: PATIENT'S OWN MEDICATION (NON-FORMULARY) (Brimonidine/Dorzolamide/Pf [Brimonidine 0.15%-Do OP SCH (16:45)
[2021-01-05] MEDS ORDERED: ALBUTEROL SO4 HFA INHALER IH PRN (16:45)
[2021-01-05] MEDS ORDERED: PATIENT'S OWN MEDICATION (NON-FORMULARY) (Brimonidine/Dorzolamide/Pf [Brimonidine 0.15%-Do OD SCH (18:50)
[2021-01-05] MEDS ORDERED: metoPROLOL SUCCINATE 25 MG TAB.SR.24H (FP) ONE (18:55)
[2021-01-05] MEDS ORDERED: PT OWN MED DRAWER 7, Y5N ONE (18:56)
[2021-01-05] MEDS: metoPROLOL SUCCINATE 25 MG TAB.SR.24H (FP) PO SCH (18:58)
[2021-01-05] MEDS: predniSONE 5 MG TABLET (UD) PO SCH (18:58)
[2021-01-05] MEDS: BICTEGRAV/EMTRICIT/TENOFOV (BIKTARVY) 50-200-25 MG TABLET PO SCH (19:00)
[2021-01-05] MEDS: ATORVASTATIN CA 10 MG TABLET (FP) PO SCH (22:38)
[2021-01-05] MEDS: HEPARIN NA (PORCINE) 5,000 UNITS/ML 1ML VIAL SQ SCH (22:38)
[2021-01-05] MEDS: SODIUM BICARBONATE 650 MG TABLET PO SCH (22:38)
[2021-01-05] MEDS: BRIMONIDINE TARTRATE 0.15% OPHTHALMIC 5 ML BOTTLE OD SCH (22:38)
[2021-01-05] MEDS: ASCORBIC ACID 500 MG TABLET (FP) PO SCH (22:38)
[2021-01-05] MEDS: DORZOLAMIDE 2% HCL OPHTHALMIC SOLUTION 10 ML BOTTLE OD SCH (22:38)
[2021-01-06] MEDS ORDERED: KCL 10 MEQ IVPB 10 MEQ/100 ML INFUS.BAG IVPB SCH (00:15)
[2021-01-06] MEDS ORDERED: ACETAMINOPHEN 1000 MG/100 ML VIAL (NON FORMULARY) IVPB ONE (00:15)
[2021-01-06] MEDS: HEPARIN NA (PORCINE) 5,000 UNITS/ML 1ML VIAL SQ SCH ×3 (05:24→21:09)
[2021-01-06] MEDS: SODIUM BICARBONATE 650 MG TABLET PO SCH ×3 (05:24→21:11)
[2021-01-06] MEDS: BRIMONIDINE TARTRATE 0.15% OPHTHALMIC 5 ML BOTTLE OD SCH ×3 (05:33→21:09)
[2021-01-06] MEDS: DORZOLAMIDE 2% HCL OPHTHALMIC SOLUTION 10 ML BOTTLE OD SCH ×3 (05:33→21:10)
[2021-01-06 07:14] LABS: HEMATOCRIT 30.6 % (35.4-49); HEMOGLOBIN 10.2 GM/dL (11.7-16.9); MCH 28.7 pg (25.7-33.7); MCHC 33.3 g/dl (32.0-35.9); MEAN CELL VOLUME 86.2 fl (80-96); MEAN PLT VOLUME 8.3 fl (7.5-11.1); PLATELET COUNT 423 10^3/uL (134-434); RBC 3.55 M/mm3 (4.00-5.60); RDW 18.6 % (11.9-15.9); WHITE BLOOD COUNT 5.9 K/mm3 (4.0-10.0)
[2021-01-06 07:36] LABS: CHLORIDE 122 mmol/L (98-107); SODIUM 148 mmol/L (136-145)
[2021-01-06 07:44] LABS: ANION GAP 6 MMOL/L (8-16); BLOOD UREA NITROGEN 10.8 mg/dL (7-18); CO2 19 mmol/L (21-32); CREATININE 2.2 mg/dL (0.55-1.3); GLUCOSE,RANDOM 64 mg/dL (74-106); SGOT/AST 12 U/L (15-37)
[2021-01-06 07:45] LABS: BILIRUBIN,TOTAL 0.3 mg/dL (0.2-1); MAGNESIUM 2.2 mg/dL (1.8-2.4)
[2021-01-06 07:47] LABS: PHOSPHOROUS 2.5 mg/dL (2.5-4.9)
[2021-01-06 07:49] LABS: ALBUMIN 2.2 g/dl (3.4-5.0); ALK PHOS 138 U/L (45-117); CALCIUM 7.3 mg/dL (8.5-10.1); SGPT/ALT < 6 U/L (13-61)
[2021-01-06] MEDS ORDERED: POTASSIUM CHLORIDE TABS 20 MEQ TABLET.ER (FP) PO ONE (09:15)
[2021-01-06] MEDS ORDERED: SODIUM CHLORIDE 0.45% 1,000 ML IV SCH (09:30)
[2021-01-06] MEDS ORDERED: PT OWN MED DRAWER 7, Y5N ONE (09:45)
[2021-01-06] MEDS: ASCORBIC ACID 500 MG TABLET (FP) PO SCH ×2 (09:46→21:11)
[2021-01-06] MEDS: metoPROLOL SUCCINATE 25 MG TAB.SR.24H (FP) PO SCH (09:46)
[2021-01-06] MEDS: ASPIRIN COATED 81 MG TABLET.EC PO SCH (09:46)
[2021-01-06] MEDS: TAMSULOSIN HCL 0.4 MG CAP PO SCH (09:46)
[2021-01-06] MEDS: LEVOTHYROXINE NA 75 MCG TABLET (FP) PO SCH (09:46)
[2021-01-06] MEDS: predniSONE 5 MG TABLET (UD) PO SCH (09:46)
[2021-01-06] MEDS ORDERED: ENOXAPARIN NA (PORCINE) 30 MG/0.3 ML DISP.SYRIN SQ SCH (10:00)
[2021-01-06] MEDS ORDERED: ENOXAPARIN NA (PORCINE) 40 MG/0.4 ML DISP.SYRIN SQ SCH (10:00)
[2021-01-06] MEDS: BICTEGRAV/EMTRICIT/TENOFOV (BIKTARVY) 50-200-25 MG TABLET PO SCH (11:40)
[2021-01-06] MEDS: SODIUM CHLORIDE 0.45%/POT 20 MEQ/1,000 ML INFUS.BAG IV SCH ×2 (11:41→23:50)
[2021-01-06 17:44] LABS: BLOOD UREA NITROGEN 9.2 mg/dL (7-18); CALCIUM 7.8 mg/dL (8.5-10.1)
[2021-01-06 17:48] LABS: CREATININE 2.4 mg/dL (0.55-1.3)
[2021-01-06] MEDS: VANCOMYCIN 250 MG/5 ML ORAL SOLUTION PO SCH ×2 (17:57→23:51)
[2021-01-06] MEDS ORDERED: VANCOMYCIN 250 MG/5 ML ORAL SOLUTION PO SCH (18:00)
[2021-01-06] MEDS: ATORVASTATIN CA 10 MG TABLET (FP) PO SCH (21:11)
[2021-01-07] MEDS: SODIUM BICARBONATE 650 MG TABLET PO SCH ×3 (05:33→21:27)
[2021-01-07] MEDS: HEPARIN NA (PORCINE) 5,000 UNITS/ML 1ML VIAL SQ SCH ×3 (05:34→21:26)
[2021-01-07] MEDS: BRIMONIDINE TARTRATE 0.15% OPHTHALMIC 5 ML BOTTLE OD SCH ×3 (05:34→21:26)
[2021-01-07] MEDS: VANCOMYCIN 250 MG/5 ML ORAL SOLUTION PO SCH ×4 (05:38→23:53)
[2021-01-07] MEDS: DORZOLAMIDE 2% HCL OPHTHALMIC SOLUTION 10 ML BOTTLE OD SCH ×3 (05:39→21:28)
[2021-01-07] MEDS: SODIUM CHLORIDE 0.45%/POT 20 MEQ/1,000 ML INFUS.BAG IV SCH ×2 (06:48→10:51)
[2021-01-07 07:13] LABS: CALCIUM 7.5 mg/dL (8.5-10.1)
[2021-01-07 07:14] LABS: BLOOD UREA NITROGEN 7.5 mg/dL (7-18)
[2021-01-07] MEDS ORDERED: POTASSIUM CHLORIDE TABS 20 MEQ TABLET.ER (FP) PO ONE (09:30)
[2021-01-07 10:20] LABS: MAGNESIUM 1.9 mg/dL (1.8-2.4)
[2021-01-07 10:23] LABS: PHOSPHOROUS 2.2 mg/dL (2.5-4.9)
[2021-01-07] MEDS ORDERED: PT OWN MED DRAWER 7, Y5N ONE (10:46)
[2021-01-07 10:51] LABS: HEMATOCRIT 31.7 % (35.4-49); HEMOGLOBIN 10.4 GM/dL (11.7-16.9); MCH 28.4 pg (25.7-33.7); MCHC 32.7 g/dl (32.0-35.9); MEAN CELL VOLUME 86.9 fl (80-96); MEAN PLT VOLUME 8.2 fl (7.5-11.1); PLATELET COUNT 412 10^3/uL (134-434); RBC 3.65 M/mm3 (4.00-5.60); WHITE BLOOD COUNT 7.5 K/mm3 (4.0-10.0)
[2021-01-07] MEDS: metoPROLOL SUCCINATE 25 MG TAB.SR.24H (FP) PO SCH (10:53)
[2021-01-07] MEDS: LEVOTHYROXINE NA 75 MCG TABLET (FP) PO SCH (10:54)
[2021-01-07] MEDS: predniSONE 5 MG TABLET (UD) PO SCH (10:54)
[2021-01-07] MEDS: ASCORBIC ACID 500 MG TABLET (FP) PO SCH ×2 (10:54→21:27)
[2021-01-07] MEDS: TAMSULOSIN HCL 0.4 MG CAP PO SCH (10:54)
[2021-01-07] MEDS: ASPIRIN COATED 81 MG TABLET.EC PO SCH (10:54)
[2021-01-07] MEDS: BICTEGRAV/EMTRICIT/TENOFOV (BIKTARVY) 50-200-25 MG TABLET PO SCH (10:54)
[2021-01-07] MEDS ORDERED: LEVOTHYROXINE NA 75 MCG TABLET (FP) PO SCH (11:11)
[2021-01-07] MEDS ORDERED: POTASSIUM PHOSPHATE 30 MM in DEXTROSE 5%-WATER - 250 ML IVPB ONE (16:30)
[2021-01-07] MEDS: AMINO ACIDS/PROTEIN HYDROLYS 30 ML LIQUID.PKT PO SCH (17:13)
[2021-01-07] MEDS: traZODone HCL 50 MG TABLET (FP) PO PRN (21:27)
[2021-01-07] MEDS: ATORVASTATIN CA 10 MG TABLET (FP) PO SCH (21:28)
[2021-01-08] MEDS: HEPARIN NA (PORCINE) 5,000 UNITS/ML 1ML VIAL SQ SCH ×3 (05:38→21:32)
[2021-01-08] MEDS: BRIMONIDINE TARTRATE 0.15% OPHTHALMIC 5 ML BOTTLE OD SCH ×3 (05:38→21:32)
[2021-01-08] MEDS: SODIUM BICARBONATE 650 MG TABLET PO SCH ×3 (05:38→21:33)
[2021-01-08] MEDS: DORZOLAMIDE 2% HCL OPHTHALMIC SOLUTION 10 ML BOTTLE OD SCH ×3 (05:39→21:33)
[2021-01-08] MEDS: VANCOMYCIN 250 MG/5 ML ORAL SOLUTION PO SCH ×4 (05:39→23:36)
[2021-01-08] MEDS: LEVOTHYROXINE NA 75 MCG TABLET (FP) PO SCH (06:25)
[2021-01-08] MEDS: AMINO ACIDS/PROTEIN HYDROLYS 30 ML LIQUID.PKT PO SCH ×2 (08:18→17:29)
[2021-01-08] MEDS: TAMSULOSIN HCL 0.4 MG CAP PO SCH (08:18)
[2021-01-08] MEDS: SODIUM CHLORIDE 0.45%/POT 20 MEQ/1,000 ML INFUS.BAG IV SCH (08:18)
[2021-01-08] MEDS ORDERED: PT OWN MED DRAWER 7, Y5N ONE (10:44)
[2021-01-08] MEDS: ASPIRIN COATED 81 MG TABLET.EC PO SCH (10:45)
[2021-01-08] MEDS: ASCORBIC ACID 500 MG TABLET (FP) PO SCH ×2 (10:45→21:33)
[2021-01-08] MEDS: predniSONE 5 MG TABLET (UD) PO SCH (10:45)
[2021-01-08] MEDS: metoPROLOL SUCCINATE 25 MG TAB.SR.24H (FP) PO SCH (10:45)
[2021-01-08] MEDS: BICTEGRAV/EMTRICIT/TENOFOV (BIKTARVY) 50-200-25 MG TABLET PO SCH (10:45)
[2021-01-08 16:28] LABS: HEMATOCRIT 34.2 % (35.4-49); HEMOGLOBIN 11.1 GM/dL (11.7-16.9); MCH 28.4 pg (25.7-33.7); MCHC 32.4 g/dl (32.0-35.9); MEAN CELL VOLUME 87.7 fl (80-96); MEAN PLT VOLUME 8.7 fl (7.5-11.1); PLATELET COUNT 395 10^3/uL (134-434); RDW 19.3 % (11.9-15.9); WHITE BLOOD COUNT 8.3 K/mm3 (4.0-10.0)
[2021-01-08 16:52] LABS: ALBUMIN 2.5 g/dl (3.4-5.0)
[2021-01-08 16:53] LABS: BLOOD UREA NITROGEN 11.6 mg/dL (7-18); MAGNESIUM 1.9 mg/dL (1.8-2.4)
[2021-01-08 16:56] LABS: CREATININE 1.7 mg/dL (0.55-1.3); PHOSPHOROUS 2.4 mg/dL (2.5-4.9)
[2021-01-08 16:57] LABS: BILIRUBIN,TOTAL 0.3 mg/dL (0.2-1); TOT PROT 6.4 g/dl (6.4-8.2)
[2021-01-08] MEDS: traZODone HCL 50 MG TABLET (FP) PO PRN (21:32)
[2021-01-08] MEDS: ATORVASTATIN CA 10 MG TABLET (FP) PO SCH (21:32)
[2021-01-09] MEDS: HEPARIN NA (PORCINE) 5,000 UNITS/ML 1ML VIAL SQ SCH ×3 (06:00→21:25)
[2021-01-09] MEDS: BRIMONIDINE TARTRATE 0.15% OPHTHALMIC 5 ML BOTTLE OD SCH ×3 (06:00→21:52)
[2021-01-09] MEDS: VANCOMYCIN 250 MG/5 ML ORAL SOLUTION PO SCH ×3 (06:00→17:53)
[2021-01-09] MEDS: SODIUM BICARBONATE 650 MG TABLET PO SCH ×3 (06:00→21:25)
[2021-01-09] MEDS: LEVOTHYROXINE NA 75 MCG TABLET (FP) PO SCH (06:00)
[2021-01-09] MEDS: DORZOLAMIDE 2% HCL OPHTHALMIC SOLUTION 10 ML BOTTLE OD SCH ×3 (06:00→21:25)
[2021-01-09] MEDS ORDERED: PT OWN MED DRAWER 7, Y5N ONE (09:04)
[2021-01-09 10:12] LABS: HEMATOCRIT 30.1 % (35.4-49); HEMOGLOBIN 9.8 GM/dL (11.7-16.9); MCH 28.7 pg (25.7-33.7); MCHC 32.6 g/dl (32.0-35.9); MEAN PLT VOLUME 8.7 fl (7.5-11.1); PLATELET COUNT 194 10^3/uL (134-434); RBC 3.42 M/mm3 (4.00-5.60); RDW 19.4 % (11.9-15.9); WHITE BLOOD COUNT 7.8 K/mm3 (4.0-10.0)
[2021-01-09 10:31] LABS: CALCIUM 7.9 mg/dL (8.5-10.1)
[2021-01-09 10:32] LABS: ALBUMIN 2.4 g/dl (3.4-5.0); BLOOD UREA NITROGEN 13.3 mg/dL (7-18); MAGNESIUM 1.8 mg/dL (1.8-2.4)
[2021-01-09 10:35] LABS: CREATININE 1.5 mg/dL (0.55-1.3)
[2021-01-09 10:36] LABS: PHOSPHOROUS 1.6 mg/dL (2.5-4.9)
[2021-01-09 10:37] LABS: BILIRUBIN,TOTAL 0.2 mg/dL (0.2-1); TOT PROT 6.2 g/dl (6.4-8.2)
[2021-01-09] MEDS: ASCORBIC ACID 500 MG TABLET (FP) PO SCH ×2 (10:48→21:24)
[2021-01-09] MEDS: ASPIRIN COATED 81 MG TABLET.EC PO SCH (10:48)
[2021-01-09] MEDS: SODIUM CHLORIDE 0.45%/POT 20 MEQ/1,000 ML INFUS.BAG IV SCH (10:48)
[2021-01-09] MEDS: metoPROLOL SUCCINATE 25 MG TAB.SR.24H (FP) PO SCH (10:48)
[2021-01-09] MEDS: TAMSULOSIN HCL 0.4 MG CAP PO SCH (10:48)
[2021-01-09] MEDS: predniSONE 5 MG TABLET (UD) PO SCH (10:48)
[2021-01-09] MEDS: AMINO ACIDS/PROTEIN HYDROLYS 30 ML LIQUID.PKT PO SCH ×2 (10:48→17:52)
[2021-01-09] MEDS: BICTEGRAV/EMTRICIT/TENOFOV (BIKTARVY) 50-200-25 MG TABLET PO SCH (10:48)
[2021-01-09] MEDS ORDERED: POTASSIUM PHOSPHATE 30 MM in SODIUM CHLORIDE 500 ML IVPB ONE (11:00)
[2021-01-09 11:08] LABS: ANISOCYTOSIS 1+; MACROCYTOSIS 1+; PLATELET ESTIMATE NORMAL
[2021-01-09] MEDS: traZODone HCL 50 MG TABLET (FP) PO PRN (21:24)
[2021-01-09] MEDS: ATORVASTATIN CA 10 MG TABLET (FP) PO SCH (21:24)
[2021-01-10] MEDS: VANCOMYCIN 250 MG/5 ML ORAL SOLUTION PO SCH ×3 (00:13→12:00)
[2021-01-10] MEDS: BRIMONIDINE TARTRATE 0.15% OPHTHALMIC 5 ML BOTTLE OD SCH (05:48)
[2021-01-10] MEDS: HEPARIN NA (PORCINE) 5,000 UNITS/ML 1ML VIAL SQ SCH (05:48)
[2021-01-10] MEDS: SODIUM BICARBONATE 650 MG TABLET PO SCH (05:48)
[2021-01-10] MEDS: DORZOLAMIDE 2% HCL OPHTHALMIC SOLUTION 10 ML BOTTLE OD SCH (05:49)
[2021-01-10] MEDS: LEVOTHYROXINE NA 75 MCG TABLET (FP) PO SCH (06:02)
[2021-01-10 06:57] LABS: HEMATOCRIT 30.1 % (35.4-49); HEMOGLOBIN 9.9 GM/dL (11.7-16.9); MCH 28.9 pg (25.7-33.7); MCHC 32.8 g/dl (32.0-35.9); MEAN PLT VOLUME 8.8 fl (7.5-11.1); PLATELET COUNT 313 10^3/uL (134-434); RBC 3.42 M/mm3 (4.00-5.60); RDW 19.4 % (11.9-15.9); WHITE BLOOD COUNT 9.2 K/mm3 (4.0-10.0)
[2021-01-10 07:12] LABS: ALBUMIN 2.4 g/dl (3.4-5.0); CALCIUM 7.9 mg/dL (8.5-10.1)
[2021-01-10 07:13] LABS: BLOOD UREA NITROGEN 16.6 mg/dL (7-18); MAGNESIUM 1.8 mg/dL (1.8-2.4)
[2021-01-10 07:15] LABS: CREATININE 1.6 mg/dL (0.55-1.3)
[2021-01-10 07:16] LABS: BILIRUBIN,TOTAL 0.5 mg/dL (0.2-1)
[2021-01-10] MEDS ORDERED: PT OWN MED DRAWER 7, Y5N ONE (09:59)
[2021-01-10] MEDS: AMINO ACIDS/PROTEIN HYDROLYS 30 ML LIQUID.PKT PO SCH (10:01)
[2021-01-10] MEDS: ASPIRIN COATED 81 MG TABLET.EC PO SCH (10:01)
[2021-01-10] MEDS: metoPROLOL SUCCINATE 25 MG TAB.SR.24H (FP) PO SCH (10:01)
[2021-01-10] MEDS: ASCORBIC ACID 500 MG TABLET (FP) PO SCH (10:01)
[2021-01-10] MEDS: TAMSULOSIN HCL 0.4 MG CAP PO SCH (10:01)
[2021-01-10] MEDS: predniSONE 5 MG TABLET (UD) PO SCH (10:02)
[2021-01-10] MEDS: SODIUM CHLORIDE 0.45%/POT 20 MEQ/1,000 ML INFUS.BAG IV SCH (10:02)
[2021-01-10] MEDS: BICTEGRAV/EMTRICIT/TENOFOV (BIKTARVY) 50-200-25 MG TABLET PO SCH (10:02)
[2021-01-10 10:34] LABS: ANISOCYTOSIS 1+; MACROCYTOSIS 0; PLATELET ESTIMATE NORMAL; TEAR DROP CELLS 1+; TOXIC GRANULATION 1+
[2021-01-10 15:26] VITALS: BP 120/59; PULSE 69; TEMP 98.2
== END 2021-01-10 13:00 | disposition home or self-care (01) | DRG 248 ==
LOC: JER 10:09 → JERBED 13:41 → J4S 20:53
PROVIDERS: ADMIT Internal Medicine; ATTEND Internal Medicine
DX: A04.72 Enterocolitis due to Clostridium difficile, not specified as recurrent (principal); N17.9 Acute kidney failure, unspecified; E03.9 Hypothyroidism, unspecified; E78.5 Hyperlipidemia, unspecified; E86.0 Dehydration; I25.10 Atherosclerotic heart disease of native coronary artery without angina pectoris; N40.0 Benign prostatic hyperplasia without lower urinary tract symptoms; K74.60 Unspecified cirrhosis of liver; H40.9 Unspecified glaucoma; I12.9 Hypertensive chronic kidney disease with stage 1 through stage 4 chronic kidney disease, or unspecified chronic kidney disease; N18.9 Chronic kidney disease, unspecified; F11.90 Opioid use, unspecified, uncomplicated; E27.40 Unspecified adrenocortical insufficiency; E87.0 Hyperosmolality and hypernatremia; E43 Unspecified severe protein-calorie malnutrition; E77.8 Other disorders of glycoprotein metabolism; R64 Cachexia; Z21 Asymptomatic human immunodeficiency virus [HIV] infection status; Z68.20 Body mass index [BMI] 20.0-20.9, adult; F17.210 Nicotine dependence, cigarettes, uncomplicated; Z95.2 Presence of prosthetic heart valve; Z86.718 Personal history of other venous thrombosis and embolism; Z86.19 Personal history of other infectious and parasitic diseases
CPT/HCPCS: 36415; 71045-TC-FY; 80048; 80053; 81003; 82550; 83735; 84100; 84484; 85025; 85027; 87040; 87045; 87046; 87086; 87186; 87324; 87449; 99285-25; C9803; J0131; J1644; J3480; U0003; U0005

== ENCOUNTER 2021-03-17 17:30 | Inpatient (IN) | payer OTHER ==
[2021-03-17 18:20] VITALS: BMI 20.5
[2021-03-17] MEDS ORDERED: ACETAMINOPHEN 1000 MG/100 ML VIAL IVPB ONE (19:52)
[2021-03-17] MEDS ORDERED: SODIUM CHLORIDE 0.9% 500 ML INFUS.BAG IV ONE (19:52)
[2021-03-17] MEDS ORDERED: ACETAMINOPHEN INJECTION 100 ML IVPB ONE (20:05)
[2021-03-17 20:45] LABS: HEMATOCRIT 35.9 % (35.4-49); HEMOGLOBIN 11.7 GM/dL (11.7-16.9); MCH 26.5 pg (25.7-33.7); MCHC 32.5 g/dl (32.0-35.9); MEAN CELL VOLUME 81.6 fl (80-96); MEAN PLT VOLUME 8.4 fl (7.5-11.1); PLATELET COUNT 298 10^3/uL (134-434); RDW 19.6 % (11.9-15.9); WHITE BLOOD COUNT 13.5 K/mm3 (4.0-10.0)
[2021-03-17 20:53] LABS: INR 0.96 (0.83-1.09); PROTHROMBIN TIME (PATIENT) 10.7 SEC (9.7-13.0)
[2021-03-17 21:12] LABS: CHLORIDE 106 mmol/L (98-107); SODIUM 140 mmol/L (136-145)
[2021-03-17 21:14] LABS: CALCIUM 8.7 mg/dL (8.5-10.1)
[2021-03-17 21:15] LABS: ANION GAP 7 MMOL/L (8-16); BLOOD UREA NITROGEN 29.8 mg/dL (7-18); CO2 27 mmol/L (21-32); GLUCOSE,RANDOM 75 mg/dL (74-106); LIPASE 114 U/L (73-393)
[2021-03-17 21:17] LABS: SGPT/ALT 42 U/L (13-61)
[2021-03-17 21:18] LABS: CREATININE 1.4 mg/dL (0.55-1.3); SGOT/AST 81 U/L (15-37)
[2021-03-17 21:19] LABS: TOT PROT 6.6 g/dl (6.4-8.2)
[2021-03-17 21:20] LABS: ALK PHOS 185 U/L (45-117)
[2021-03-17 22:10] LABS: URINE APPEARANCE CLEAR; URINE BILIRUBIN NEGATIVE (NEGATIVE); URINE COLOR YELLOW; URINE GLUCOSE (UA) NEGATIVE (NEGATIVE); URINE KETONE NEGATIVE (NEGATIVE); URINE LEUK ESTERASE NEGATIVE (NEGATIVE); URINE NITRITE NEGATIVE (NEGATIVE); URINE PROTEIN NEGATIVE (NEGATIVE)
[2021-03-17 22:12] LABS: ANISOCYTOSIS 0; MACROCYTOSIS 0; PLATELET ESTIMATE NORMAL
[2021-03-17] MEDS ORDERED: PIPERACILLIN/TAZOB 4.5 GM 4.5 GM in DEXTROSE 5%-WATER 100 ML IVPB ONE (23:18)
[2021-03-17] MEDS ORDERED: SODIUM CHLORIDE 1,000 ML IV SCH (23:30)
[2021-03-17] MEDS ORDERED: PIPERACILLIN/TAZOB 4.5 GM 4.5 GM/100 ML BAG IVPB ONE (23:36)
[2021-03-18] MEDS: SODIUM CHLORIDE 1,000 ML IV SCH (05:38)
[2021-03-18] MEDS ORDERED: morphine SULFATE 4 MG/ML VIAL IVPUSH ONE ×3 (05:51→21:49)
[2021-03-18] MEDS ORDERED: morphine CARPU-JECT 2 MG/1 ML DISP.SYRIN IVPUSH ONE (05:51)
[2021-03-18] MEDS ORDERED: morphine SULFATE 4 MG/ML VIAL ONE (05:59)
[2021-03-18] MEDS ORDERED: HEPARIN NA (PORCINE) 5,000 UNITS/ML 1ML VIAL SQ SCH (06:00)
[2021-03-18 07:55] LABS: INR 0.96 (0.83-1.09); PROTHROMBIN TIME (PATIENT) 10.8 SEC (9.7-13.0)
[2021-03-18 07:57] LABS: ACTIVATED PTT 25.8 SECONDS (25.2-36.5)
[2021-03-18 08:07] LABS: ALBUMIN 2.9 g/dl (3.4-5.0); BLOOD UREA NITROGEN 27.2 mg/dL (7-18); CALCIUM 8.6 mg/dL (8.5-10.1)
[2021-03-18 08:08] LABS: MAGNESIUM 2.3 mg/dL (1.8-2.4)
[2021-03-18 08:11] LABS: CREATININE 1.3 mg/dL (0.55-1.3)
[2021-03-18 08:12] LABS: BILIRUBIN,TOTAL 0.6 mg/dL (0.2-1); TOT PROT 6.2 g/dl (6.4-8.2)
[2021-03-18 08:19] LABS: HEMATOCRIT 35.4 % (35.4-49); HEMOGLOBIN 11.6 GM/dL (11.7-16.9); MCHC 32.9 g/dl (32.0-35.9); MEAN CELL VOLUME 82.1 fl (80-96); MEAN PLT VOLUME 8.6 fl (7.5-11.1); PLATELET COUNT 283 10^3/uL (134-434); RBC 4.31 M/mm3 (4.00-5.60); RDW 20.2 % (11.9-15.9); WHITE BLOOD COUNT 9.6 K/mm3 (4.0-10.0)
[2021-03-18] MEDS ORDERED: PIPERACILLIN/TAZOB 3.375 GM 3.375 GM in DEXTROSE 5%-WATER - 50 ML IVPB SCH (10:00)
[2021-03-18] MEDS ORDERED: PIPERACILLIN/TAZOBACTAM 3.375 GM VIAL IVPB ONE ×2 (10:40→18:21)
[2021-03-18] MEDS ORDERED: DEXTROSE 5%-WATER - 50 ML IVPB ONE ×2 (10:41→18:21)
[2021-03-18] MEDS: ACETAMINOPHEN 1000 MG/100 ML VIAL IVPB PRN ×2 (11:15→18:30)
[2021-03-18] MEDS ORDERED: traZODone HCL 50 MG TABLET (FP) PO PRN (11:15)
[2021-03-18] MEDS ORDERED: ALBUTEROL SO4 HFA INHALER IH PRN (11:15)
[2021-03-18] MEDS: predniSONE 5 MG TABLET (UD) PO SCH (15:22)
[2021-03-18] MEDS: BICTEGRAV/EMTRICIT/TENOFOV (BIKTARVY) 50-200-25 MG TABLET PO SCH (15:22)
[2021-03-18] MEDS: TAMSULOSIN HCL 0.4 MG CAP PO SCH (15:22)
[2021-03-18] MEDS: LEVOTHYROXINE NA 75 MCG TABLET (FP) PO SCH (15:22)
[2021-03-18] MEDS: metoPROLOL SUCCINATE 25 MG TAB.SR.24H (FP) PO SCH (15:23)
[2021-03-18] MEDS: SODIUM BICARBONATE 650 MG TABLET PO SCH ×2 (15:23→22:43)
[2021-03-18] MEDS: BRIMONIDINE TARTRATE 0.15% OPHTHALMIC 5 ML BOTTLE OD SCH ×2 (15:23→23:22)
[2021-03-18] MEDS: DORZOLAMIDE 2% HCL OPHTHALMIC SOLUTION 10 ML BOTTLE OD SCH ×2 (15:23→23:22)
[2021-03-18] MEDS ORDERED: SODIUM CHLORIDE 500 ML IV ONE (16:15)
[2021-03-18] MEDS: MIDAZOLAM HCL 2 MG/2 ML SINGLE DOSE VIAL IVPUSH SCH ×2 (16:30→16:45)
[2021-03-18] MEDS: PIPERACILLIN/TAZOB 3.375 GM 3.375 GM in DEXTROSE 5%-WATER - 50 ML IVPB SCH (18:33)
[2021-03-18] MEDS: ATORVASTATIN CA 10 MG TABLET (FP) PO SCH (22:43)
[2021-03-19] MEDS ORDERED: DEXTROSE 5%-WATER - 50 ML IVPB ONE ×3 (01:43→16:55)
[2021-03-19] MEDS ORDERED: PIPERACILLIN/TAZOBACTAM 3.375 GM VIAL IVPB ONE ×3 (01:43→16:55)
[2021-03-19] MEDS: PIPERACILLIN/TAZOB 3.375 GM 3.375 GM in DEXTROSE 5%-WATER - 50 ML IVPB SCH ×3 (02:36→17:55)
[2021-03-19] MEDS: ACETAMINOPHEN 1000 MG/100 ML VIAL IVPB PRN ×2 (03:22→09:27)
[2021-03-19] MEDS: SODIUM BICARBONATE 650 MG TABLET PO SCH ×3 (06:29→23:56)
[2021-03-19] MEDS: LEVOTHYROXINE NA 75 MCG TABLET (FP) PO SCH (06:29)
[2021-03-19] MEDS: BRIMONIDINE TARTRATE 0.15% OPHTHALMIC 5 ML BOTTLE OD SCH ×2 (06:29→13:34)
[2021-03-19] MEDS: DORZOLAMIDE 2% HCL OPHTHALMIC SOLUTION 10 ML BOTTLE OD SCH ×2 (06:30→13:34)
[2021-03-19] MEDS: SODIUM CHLORIDE 1,000 ML IV SCH (06:31)
[2021-03-19] MEDS ORDERED: morphine SULFATE 4 MG/ML VIAL IVPUSH ONE (06:45)
[2021-03-19] MEDS ORDERED: PT OWN MED DRAWER 7, Y5N ONE (08:48)
[2021-03-19 08:53] LABS: BASO % 0.7 % (0-2.0); EOS % 3.9 % (0-4.5); HEMATOCRIT 38.7 % (35.4-49); HEMOGLOBIN 12.3 GM/dL (11.7-16.9); LYMPH % 6.4 % (8-40); MCH 26.9 pg (25.7-33.7); MCHC 31.7 g/dl (32.0-35.9); MEAN CELL VOLUME 84.7 fl (80-96); MONO % 3.9 % (3.8-10.2); NEUT % 85.1 % (42.8-82.8); PLATELET COUNT 297 10^3/uL (134-434); RBC 4.57 M/mm3 (4.00-5.60); RDW 19.9 % (11.9-15.9); WHITE BLOOD COUNT 12.3 K/mm3 (4.0-10.0)
[2021-03-19 09:07] LABS: CHLORIDE 109 mmol/L (98-107); SODIUM 140 mmol/L (136-145)
[2021-03-19 09:13] LABS: CALCIUM 8.4 mg/dL (8.5-10.1)
[2021-03-19 09:14] LABS: ALBUMIN 2.7 g/dl (3.4-5.0); ANION GAP 9 MMOL/L (8-16); CO2 22 mmol/L (21-32); MAGNESIUM 2.5 mg/dL (1.8-2.4)
[2021-03-19 09:16] LABS: SGOT/AST 24 U/L (15-37); SGPT/ALT 33 U/L (13-61)
[2021-03-19 09:17] LABS: BILIRUBIN,TOTAL 0.8 mg/dL (0.2-1); CREATININE 0.9 mg/dL (0.55-1.3); PHOSPHOROUS 3.5 mg/dL (2.5-4.9); TOT PROT 6.2 g/dl (6.4-8.2)
[2021-03-19 09:19] LABS: ALK PHOS 245 U/L (45-117); GLUCOSE,RANDOM 40 mg/dL (74-106)
[2021-03-19] MEDS: TAMSULOSIN HCL 0.4 MG CAP PO SCH (09:31)
[2021-03-19] MEDS: BICTEGRAV/EMTRICIT/TENOFOV (BIKTARVY) 50-200-25 MG TABLET PO SCH (09:32)
[2021-03-19] MEDS: predniSONE 5 MG TABLET (UD) PO SCH (09:32)
[2021-03-19] MEDS: metoPROLOL SUCCINATE 25 MG TAB.SR.24H (FP) PO SCH (09:32)
[2021-03-19] MEDS: VANCOMYCIN 1 GRAM (PRE-DOCKED) 1,000 MG/250 ML BAG IVPB SCH ×2 (12:11→23:58)
[2021-03-19] MEDS: morphine SULFATE 4 MG/ML VIAL IVPUSH PRN ×2 (13:54→20:12)
[2021-03-19] MEDS: AMINO ACIDS 4.25%/D5W 1,000 ML IV SCH (14:52)
[2021-03-19] MEDS: ATORVASTATIN CA 10 MG TABLET (FP) PO SCH (23:56)
[2021-03-20] MEDS: BRIMONIDINE TARTRATE 0.15% OPHTHALMIC 5 ML BOTTLE OD SCH ×3 (00:01→14:37)
[2021-03-20] MEDS: DORZOLAMIDE 2% HCL OPHTHALMIC SOLUTION 10 ML BOTTLE OD SCH ×3 (00:01→14:38)
[2021-03-20] MEDS: AMINO ACIDS 4.25%/D5W 1,000 ML IV SCH (00:30)
[2021-03-20] MEDS ORDERED: PIPERACILLIN/TAZOBACTAM 3.375 GM VIAL IVPB ONE ×3 (02:18→18:21)
[2021-03-20] MEDS ORDERED: DEXTROSE 5%-WATER - 50 ML IVPB ONE ×3 (02:19→18:21)
[2021-03-20] MEDS: PIPERACILLIN/TAZOB 3.375 GM 3.375 GM in DEXTROSE 5%-WATER - 50 ML IVPB SCH ×3 (02:24→18:28)
[2021-03-20] MEDS: morphine SULFATE 4 MG/ML VIAL IVPUSH PRN ×4 (02:24→23:54)
[2021-03-20] MEDS: SODIUM CHLORIDE 1,000 ML IV SCH (05:25)
[2021-03-20] MEDS: SODIUM BICARBONATE 650 MG TABLET PO SCH ×3 (06:38→23:52)
[2021-03-20] MEDS: LEVOTHYROXINE NA 75 MCG TABLET (FP) PO SCH (06:38)
[2021-03-20 08:53] LABS: BASO % 0.5 % (0-2.0); EOS % 7.4 % (0-4.5); HEMATOCRIT 38.4 % (35.4-49); HEMOGLOBIN 12.6 GM/dL (11.7-16.9); LYMPH % 10.6 % (8-40); MCH 27.2 pg (25.7-33.7); MCHC 32.7 g/dl (32.0-35.9); MEAN CELL VOLUME 83.1 fl (80-96); MEAN PLT VOLUME 8.5 fl (7.5-11.1); MONO % 2.4 % (3.8-10.2); NEUT % 79.1 % (42.8-82.8); PLATELET COUNT 271 10^3/uL (134-434); RBC 4.63 M/mm3 (4.00-5.60); WHITE BLOOD COUNT 9.9 K/mm3 (4.0-10.0)
[2021-03-20 09:11] LABS: CALCIUM 8.4 mg/dL (8.5-10.1)
[2021-03-20 09:12] LABS: BLOOD UREA NITROGEN 24.2 mg/dL (7-18)
[2021-03-20 09:15] LABS: CREATININE 1.2 mg/dL (0.55-1.3)
[2021-03-20 09:17] LABS: BILIRUBIN,TOTAL 0.8 mg/dL (0.2-1)
[2021-03-20] MEDS: metoPROLOL SUCCINATE 25 MG TAB.SR.24H (FP) PO SCH (09:50)
[2021-03-20] MEDS: BICTEGRAV/EMTRICIT/TENOFOV (BIKTARVY) 50-200-25 MG TABLET PO SCH (09:50)
[2021-03-20] MEDS: predniSONE 5 MG TABLET (UD) PO SCH (09:50)
[2021-03-20] MEDS: TAMSULOSIN HCL 0.4 MG CAP PO SCH (09:50)
[2021-03-20] MEDS: AMINO ACIDS 4.25%/D5W 2,000 ML IV SCH (10:23)
[2021-03-20] MEDS: VANCOMYCIN 1 GRAM (PRE-DOCKED) 1,000 MG/250 ML BAG IVPB SCH (10:45)
[2021-03-20] MEDS: ATORVASTATIN CA 10 MG TABLET (FP) PO SCH (23:53)
[2021-03-21] MEDS: DORZOLAMIDE 2% HCL OPHTHALMIC SOLUTION 10 ML BOTTLE OD SCH ×3 (00:01→13:43)
[2021-03-21] MEDS: VANCOMYCIN 1 GRAM (PRE-DOCKED) 1,000 MG/250 ML BAG IVPB SCH ×2 (00:06→12:33)
[2021-03-21] MEDS ORDERED: PIPERACILLIN/TAZOBACTAM 3.375 GM VIAL IVPB ONE ×2 (02:17→10:00)
[2021-03-21] MEDS ORDERED: DEXTROSE 5%-WATER - 50 ML IVPB ONE ×2 (02:17→10:00)
[2021-03-21] MEDS: PIPERACILLIN/TAZOB 3.375 GM 3.375 GM in DEXTROSE 5%-WATER - 50 ML IVPB SCH ×2 (02:40→11:46)
[2021-03-21] MEDS: morphine SULFATE 4 MG/ML VIAL IVPUSH PRN (06:06)
[2021-03-21] MEDS: SODIUM BICARBONATE 650 MG TABLET PO SCH ×2 (06:08→13:43)
[2021-03-21] MEDS: LEVOTHYROXINE NA 75 MCG TABLET (FP) PO SCH (06:08)
[2021-03-21] MEDS: BRIMONIDINE TARTRATE 0.15% OPHTHALMIC 5 ML BOTTLE OD SCH ×3 (06:09→13:43)
[2021-03-21 06:20] VITALS: BP 138/54; PULSE 68; TEMP 97.9
[2021-03-21] MEDS: TAMSULOSIN HCL 0.4 MG CAP PO SCH (11:45)
[2021-03-21] MEDS: predniSONE 5 MG TABLET (UD) PO SCH (11:45)
[2021-03-21] MEDS: metoPROLOL SUCCINATE 25 MG TAB.SR.24H (FP) PO SCH (11:45)
[2021-03-21] MEDS: AMINO ACIDS 4.25%/D5W 2,000 ML IV SCH (11:46)
[2021-03-21] MEDS: BICTEGRAV/EMTRICIT/TENOFOV (BIKTARVY) 50-200-25 MG TABLET PO SCH (11:46)
[2021-03-21 11:55] LABS: BASO % 0.6 % (0-2.0); EOS % 13.2 % (0-4.5); HEMATOCRIT 34.4 % (35.4-49); HEMOGLOBIN 11.3 GM/dL (11.7-16.9); LYMPH % 14.8 % (8-40); MCH 27.5 pg (25.7-33.7); MCHC 32.9 g/dl (32.0-35.9); MEAN CELL VOLUME 83.6 fl (80-96); MEAN PLT VOLUME 8.8 fl (7.5-11.1); MONO % 4.7 % (3.8-10.2); NEUT % 66.7 % (42.8-82.8); PLATELET COUNT 273 10^3/uL (134-434); RBC 4.12 M/mm3 (4.00-5.60); RDW 20.1 % (11.9-15.9); WHITE BLOOD COUNT 7.8 K/mm3 (4.0-10.0)
[2021-03-21 12:21] LABS: BLOOD UREA NITROGEN 23.5 mg/dL (7-18); CALCIUM 8.8 mg/dL (8.5-10.1)
[2021-03-21 12:22] LABS: ALBUMIN 3.2 g/dl (3.4-5.0); MAGNESIUM 2.6 mg/dL (1.8-2.4)
[2021-03-21 12:25] LABS: CREATININE 1.1 mg/dL (0.55-1.3)
[2021-03-21 12:26] LABS: BILIRUBIN,TOTAL 0.8 mg/dL (0.2-1)
[2021-03-21 12:27] LABS: TOT PROT 7.2 g/dl (6.4-8.2)
[2021-03-21] MEDS ORDERED: DAPTOMYCIN 450 MG in SODIUM CHLORIDE 50 ML IVPB SCH (13:15)
== END 2021-03-21 15:34 | disposition left against medical advice (07) ==
LOC: JER 17:30 → JERBED 23:56 → J7W 03-18 08:44
PROVIDERS: ADMIT Internal Medicine
DX: K80.00 Calculus of gallbladder with acute cholecystitis without obstruction (principal); N17.9 Acute kidney failure, unspecified; R78.81 Bacteremia; R64 Cachexia; Z68.20 Body mass index [BMI] 20.0-20.9, adult; E46 Unspecified protein-calorie malnutrition; B19.10 Unspecified viral hepatitis B without hepatic coma; I12.9 Hypertensive chronic kidney disease with stage 1 through stage 4 chronic kidney disease, or unspecified chronic kidney disease; N18.9 Chronic kidney disease, unspecified; E78.5 Hyperlipidemia, unspecified; Z95.2 Presence of prosthetic heart valve; I25.10 Atherosclerotic heart disease of native coronary artery without angina pectoris; K74.60 Unspecified cirrhosis of liver; Z21 Asymptomatic human immunodeficiency virus [HIV] infection status; Z86.718 Personal history of other venous thrombosis and embolism; N40.0 Benign prostatic hyperplasia without lower urinary tract symptoms; N18.30 Chronic kidney disease, stage 3 unspecified; E16.2 Hypoglycemia, unspecified
CPT/HCPCS: 36415; 47490; 76705-TC; 80053; 81003; 82550; 82962; 83605; 83690; 83735; 84100; 84484; 85025; 85027; 85610; 85730; 86140; 86850; 86900; 86901; 87040; 87070; 87075; 87086; 87102; 87116; 87186; 87205; 87206; 87210; 93005; 93010; 93306-TC; 99285-25; C9803; G0480; J0131; U0003; U0005

== ENCOUNTER 2021-03-24 10:26 | Inpatient (IN) | payer OTHER ==
[2021-03-24 10:38] VITALS: BMI 22.3
[2021-03-24 12:04] LABS: BASO % 0.4 % (0-2.0); EOS % 0.7 % (0-4.5); HEMATOCRIT 35.1 % (35.4-49); HEMOGLOBIN 11.3 GM/dL (11.7-16.9); LYMPH % 8.3 % (8-40); MCH 26.8 pg (25.7-33.7); MCHC 32.3 g/dl (32.0-35.9); MEAN CELL VOLUME 82.9 fl (80-96); MONO % 5.8 % (3.8-10.2); NEUT % 84.8 % (42.8-82.8); PLATELET COUNT 277 10^3/uL (134-434); RBC 4.23 M/mm3 (4.00-5.60); RDW 19.5 % (11.9-15.9); WHITE BLOOD COUNT 9.4 K/mm3 (4.0-10.0)
[2021-03-24 12:09] LABS: EPI CELLS 7 /uL (0-25.1); HYALINE CASTS 2 /uL (0-3.1); URINE APPEARANCE CLEAR; URINE BACTERIA 2 /uL (0-1359); URINE BILIRUBIN NEGATIVE (NEGATIVE); URINE COLOR YELLOW; URINE GLUCOSE (UA) NEGATIVE (NEGATIVE); URINE KETONE NEGATIVE (NEGATIVE); URINE LEUK ESTERASE NEGATIVE (NEGATIVE); URINE NITRITE NEGATIVE (NEGATIVE); URINE PROTEIN 1+ (NEGATIVE); URINE RBC 8 /uL (0-23.9); URINE UROBILINOGEN 0.2 mg/dL (0.2-1.0); URINE WBC 11 /uL (0-25.8)
[2021-03-24 12:14] LABS: INR 0.89 (0.83-1.09); PROTHROMBIN TIME (PATIENT) 10.4 SEC (9.7-13.0)
[2021-03-24 12:17] LABS: ACTIVATED PTT 29.7 SECONDS (25.2-36.5)
[2021-03-24 12:21] LABS: CHLORIDE 105 mmol/L (98-107); SODIUM 139 mmol/L (136-145)
[2021-03-24 12:23] LABS: ANION GAP 11 MMOL/L (8-16); BLOOD UREA NITROGEN 25.5 mg/dL (7-18); CALCIUM 9.3 mg/dL (8.5-10.1); CO2 22 mmol/L (21-32); GLUCOSE,RANDOM 90 mg/dL (74-106)
[2021-03-24 12:26] LABS: BILIRUBIN,DIRECT 0.2 mg/dL (0.0-0.2); CREATININE 1.8 mg/dL (0.55-1.3); SGOT/AST 17 U/L (15-37); SGPT/ALT 20 U/L (13-61)
[2021-03-24 12:28] LABS: BILIRUBIN,TOTAL 0.4 mg/dL (0.2-1); TOT PROT 8.2 g/dl (6.4-8.2)
[2021-03-24 12:29] LABS: ALK PHOS 168 U/L (45-117)
[2021-03-24 12:38] LABS: ALBUMIN 3.9 g/dl (3.4-5.0)
[2021-03-24] MEDS ORDERED: SODIUM CHLORIDE 0.9% 500 ML INFUS.BAG IV ONE (13:31)
[2021-03-24] MEDS ORDERED: DAPTOMYCIN IVPB ONE (16:56)
[2021-03-24] MEDS ORDERED: SODIUM CHLORIDE IVPB ONE (16:56)
[2021-03-24] MEDS ORDERED: SODIUM CHLORIDE 1,000 ML IV SCH (18:30)
[2021-03-24] MEDS: HEPARIN NA (PORCINE) 5,000 UNITS/ML 1ML VIAL SQ SCH (21:51)
[2021-03-25] MEDS: LEVOTHYROXINE NA 75 MCG TABLET (FP) PO SCH (06:11)
[2021-03-25] MEDS: HEPARIN NA (PORCINE) 5,000 UNITS/ML 1ML VIAL SQ SCH ×3 (06:11→21:24)
[2021-03-25 08:08] LABS: BASO % 0.8 % (0-2.0); EOS % 4.4 % (0-4.5); HEMATOCRIT 29.8 % (35.4-49); HEMOGLOBIN 9.6 GM/dL (11.7-16.9); LYMPH % 10.2 % (8-40); MCH 27.4 pg (25.7-33.7); MCHC 32.3 g/dl (32.0-35.9); MEAN PLT VOLUME 9.3 fl (7.5-11.1); MONO % 3.7 % (3.8-10.2); NEUT % 80.9 % (42.8-82.8); PLATELET COUNT 253 10^3/uL (134-434); RBC 3.51 M/mm3 (4.00-5.60); RDW 19.7 % (11.9-15.9); WHITE BLOOD COUNT 12.3 K/mm3 (4.0-10.0)
[2021-03-25 08:31] LABS: BLOOD UREA NITROGEN 17.4 mg/dL (7-18); CALCIUM 8.2 mg/dL (8.5-10.1); MAGNESIUM 2.5 mg/dL (1.8-2.4)
[2021-03-25 08:34] LABS: CREATININE 1.3 mg/dL (0.55-1.3)
[2021-03-25 08:35] LABS: PHOSPHOROUS 2.2 mg/dL (2.5-4.9)
[2021-03-25 08:36] LABS: BILIRUBIN,TOTAL 0.5 mg/dL (0.2-1)
[2021-03-25 08:37] LABS: ALBUMIN 2.8 g/dl (3.4-5.0); TOT PROT 5.9 g/dl (6.4-8.2)
[2021-03-25] MEDS ORDERED: PT OWN MED DRAWER 7, Y5N ONE ×2 (09:22→17:10)
[2021-03-25] MEDS: metoPROLOL SUCCINATE 25 MG TAB.SR.24H (FP) PO SCH (09:27)
[2021-03-25] MEDS: TAMSULOSIN HCL 0.4 MG CAP PO SCH (09:27)
[2021-03-25] MEDS: ASPIRIN COATED 81 MG TABLET.EC PO SCH (09:27)
[2021-03-25] MEDS ORDERED: PNEUMOC 13-VAL CONJ-DIP CRM/PF 0.5 ML DISP.SYRIN IM ONE (10:00)
[2021-03-25] MEDS ORDERED: FLU VACC QS2021-22(6MOS UP)/PF 60 MCG/0.5 ML SYRINGE IM ONE (10:00)
[2021-03-25] MEDS ORDERED: DAPTOMYCIN 450 MG in SODIUM CHLORIDE 50 ML IVPB SCH (10:00)
[2021-03-25] MEDS: BICTEGRAV/EMTRICIT/TENOFOV (BIKTARVY) 50-200-25 MG TABLET PO SCH (11:36)
[2021-03-25] MEDS ORDERED: DAPTOMYCIN IVPB SCH (15:00)
[2021-03-25] MEDS ORDERED: SODIUM CHLORIDE IVPB SCH (15:00)
[2021-03-25] MEDS: DAPTOMYCIN 440 MG in SODIUM CHLORIDE 50 ML IVPB SCH (17:25)
[2021-03-26] MEDS ORDERED: ACETAMINOPHEN 1000 MG/100 ML BAG IVPB ONE (02:05)
[2021-03-26] MEDS: HEPARIN NA (PORCINE) 5,000 UNITS/ML 1ML VIAL SQ SCH ×3 (06:09→22:04)
[2021-03-26] MEDS: LEVOTHYROXINE NA 75 MCG TABLET (FP) PO SCH (06:09)
[2021-03-26] MEDS ORDERED: PT OWN MED DRAWER 7, Y5N ONE (09:12)
[2021-03-26] MEDS ORDERED: DAPTOMYCIN 440 MG in SODIUM CHLORIDE 50 ML IVPB SCH (09:24)
[2021-03-26] MEDS: TAMSULOSIN HCL 0.4 MG CAP PO SCH (09:50)
[2021-03-26] MEDS: ASPIRIN COATED 81 MG TABLET.EC PO SCH (09:50)
[2021-03-26] MEDS: BICTEGRAV/EMTRICIT/TENOFOV (BIKTARVY) 50-200-25 MG TABLET PO SCH (09:50)
[2021-03-26] MEDS: metoPROLOL SUCCINATE 25 MG TAB.SR.24H (FP) PO SCH (09:50)
[2021-03-26] MEDS: traMADol HCL 50 MG TABLET PO PRN (14:39)
[2021-03-26] MEDS: DAPTOMYCIN 440 MG in SODIUM CHLORIDE 50 ML IVPB SCH (17:39)
[2021-03-27] MEDS: HEPARIN NA (PORCINE) 5,000 UNITS/ML 1ML VIAL SQ SCH ×3 (05:22→22:02)
[2021-03-27] MEDS: traMADol HCL 50 MG TABLET PO PRN (05:24)
[2021-03-27] MEDS: LEVOTHYROXINE NA 75 MCG TABLET (FP) PO SCH (06:07)
[2021-03-27 08:07] LABS: BASO % 1.3 % (0-2.0); EOS % 17.1 % (0-4.5); HEMATOCRIT 31.4 % (35.4-49); HEMOGLOBIN 10.3 GM/dL (11.7-16.9); LYMPH % 26.7 % (8-40); MCH 27.2 pg (25.7-33.7); MCHC 32.8 g/dl (32.0-35.9); MEAN PLT VOLUME 9.1 fl (7.5-11.1); MONO % 5.1 % (3.8-10.2); NEUT % 49.8 % (42.8-82.8); PLATELET COUNT 283 10^3/uL (134-434); RBC 3.79 M/mm3 (4.00-5.60); RDW 20.3 % (11.9-15.9); WHITE BLOOD COUNT 5.1 K/mm3 (4.0-10.0)
[2021-03-27 08:34] LABS: CALCIUM 8.6 mg/dL (8.5-10.1)
[2021-03-27 08:37] LABS: ALBUMIN 2.7 g/dl (3.4-5.0); BLOOD UREA NITROGEN 17.2 mg/dL (7-18)
[2021-03-27 08:40] LABS: CREATININE 1.4 mg/dL (0.55-1.3)
[2021-03-27 08:42] LABS: TOT PROT 6.1 g/dl (6.4-8.2)
[2021-03-27 08:44] LABS: BILIRUBIN,TOTAL 0.5 mg/dL (0.2-1)
[2021-03-27] MEDS: BICTEGRAV/EMTRICIT/TENOFOV (BIKTARVY) 50-200-25 MG TABLET PO SCH (10:20)
[2021-03-27] MEDS: metoPROLOL SUCCINATE 25 MG TAB.SR.24H (FP) PO SCH (10:20)
[2021-03-27] MEDS: ASPIRIN COATED 81 MG TABLET.EC PO SCH (10:20)
[2021-03-27] MEDS: TAMSULOSIN HCL 0.4 MG CAP PO SCH (10:20)
[2021-03-27] MEDS: KCL 10 MEQ IVPB 10 MEQ/100 ML INFUS.BAG IVPB SCH ×2 (10:26→13:17)
[2021-03-27] MEDS: morphine SULFATE 4 MG/ML VIAL IVPUSH PRN (17:43)
[2021-03-27] MEDS: DAPTOMYCIN 440 MG in SODIUM CHLORIDE 50 ML IVPB SCH (17:44)
[2021-03-27] MEDS ORDERED: morphine SULFATE 4 MG/ML VIAL IVPUSH ONE (20:43)
[2021-03-28] MEDS: morphine SULFATE 4 MG/ML VIAL IVPUSH PRN ×2 (00:45→14:25)
[2021-03-28] MEDS: HEPARIN NA (PORCINE) 5,000 UNITS/ML 1ML VIAL SQ SCH ×3 (05:57→21:57)
[2021-03-28] MEDS: LEVOTHYROXINE NA 75 MCG TABLET (FP) PO SCH (06:02)
[2021-03-28 07:33] LABS: EOS % 12.9 % (0-4.5); HEMATOCRIT 32.2 % (35.4-49); HEMOGLOBIN 10.5 GM/dL (11.7-16.9); LYMPH % 21.8 % (8-40); MCH 26.9 pg (25.7-33.7); MCHC 32.5 g/dl (32.0-35.9); MEAN CELL VOLUME 82.7 fl (80-96); MEAN PLT VOLUME 9.4 fl (7.5-11.1); MONO % 4.8 % (3.8-10.2); NEUT % 59.5 % (42.8-82.8); PLATELET COUNT 330 10^3/uL (134-434); RBC 3.89 M/mm3 (4.00-5.60); WHITE BLOOD COUNT 7.2 K/mm3 (4.0-10.0)
[2021-03-28 07:52] LABS: CALCIUM 8.5 mg/dL (8.5-10.1)
[2021-03-28 07:53] LABS: ALBUMIN 2.9 g/dl (3.4-5.0); BLOOD UREA NITROGEN 14.9 mg/dL (7-18)
[2021-03-28 07:56] LABS: CREATININE 1.3 mg/dL (0.55-1.3)
[2021-03-28 07:58] LABS: BILIRUBIN,TOTAL 0.5 mg/dL (0.2-1)
[2021-03-28 07:59] LABS: TOT PROT 6.4 g/dl (6.4-8.2)
[2021-03-28] MEDS: TAMSULOSIN HCL 0.4 MG CAP PO SCH (08:36)
[2021-03-28] MEDS: ASPIRIN COATED 81 MG TABLET.EC PO SCH (10:37)
[2021-03-28] MEDS: metoPROLOL SUCCINATE 25 MG TAB.SR.24H (FP) PO SCH (10:37)
[2021-03-28] MEDS: BICTEGRAV/EMTRICIT/TENOFOV (BIKTARVY) 50-200-25 MG TABLET PO SCH (10:37)
[2021-03-28] MEDS: oxyCODONE HCL 5 MG TABLET PO PRN ×2 (16:48→23:44)
[2021-03-28] MEDS: ACETAMINOPHEN 325 MG TABLET (FP) PO PRN ×2 (16:49→23:45)
[2021-03-28] MEDS: DAPTOMYCIN 440 MG in SODIUM CHLORIDE 50 ML IVPB SCH (17:31)
[2021-03-28 18:39] VITALS: PULSE 80
[2021-03-28 23:49] VITALS: BP 93/47; TEMP 99.1
== END 2021-03-29 01:00 | disposition short-term general hospital (02) ==
LOC: JER 10:26 → JERBED 13:12 → J4S 19:36
PROVIDERS: ADMIT Internal Medicine
DX: K80.00 Calculus of gallbladder with acute cholecystitis without obstruction (principal); N17.9 Acute kidney failure, unspecified; R78.81 Bacteremia; K74.60 Unspecified cirrhosis of liver; R64 Cachexia; Z43.4 Encounter for attention to other artificial openings of digestive tract; I25.10 Atherosclerotic heart disease of native coronary artery without angina pectoris; N18.9 Chronic kidney disease, unspecified; Z68.20 Body mass index [BMI] 20.0-20.9, adult; E78.5 Hyperlipidemia, unspecified; I12.9 Hypertensive chronic kidney disease with stage 1 through stage 4 chronic kidney disease, or unspecified chronic kidney disease; Z22.1 Carrier of other intestinal infectious diseases
CPT/HCPCS: 36415; 71045-TC-FY; 74176-TC; 80053; 81003; 82248; 82550; 83735; 84100; 84484; 85025; 85610; 85730; 86850; 86900; 86901; 87040; 87086; 90670; 90686; 93005; 93010; 99285-25; C9803; G0008; G0009; J0131; J0878; J1644; U0003; U0005

== ENCOUNTER 2021-05-24 08:51 | Observation (INO) | payer OTHER ==
[2021-05-24] MEDS ORDERED: SODIUM CHLORIDE 0.9% 500 ML INFUS.BAG IV ONE (10:48)
[2021-05-24 13:35] LABS: BASO % 1.3 % (0-2.0); EOS % 16.4 % (0-4.5); HEMATOCRIT 37.1 % (35.4-49); HEMOGLOBIN 11.7 GM/dL (11.7-16.9); LYMPH % 21.9 % (8-40); MCH 26.1 pg (25.7-33.7); MCHC 31.7 g/dl (32.0-35.9); MEAN CELL VOLUME 82.4 fl (80-96); MEAN PLT VOLUME 9.3 fl (7.5-11.1); MONO % 5.1 % (3.8-10.2); NEUT % 55.3 % (42.8-82.8); PLATELET COUNT 295 10^3/uL (134-434); RBC 4.51 M/mm3 (4.00-5.60); RDW 18.2 % (11.9-15.9)
[2021-05-24 14:49] LABS: LACTIC ACID 2.9 mmol/L (0.4-2.0)
[2021-05-24 15:25] LABS: ACTIVATED PTT 35.7 SECONDS (25.2-36.5); INR 1.19 (0.83-1.09); PROTHROMBIN TIME (PATIENT) 13.7 SEC (9.7-13.0)
[2021-05-24 17:12] LABS: ANION GAP 9 MMOL/L (8-16); BLOOD UREA NITROGEN 11.8 mg/dL (7-18); CALCIUM 8.3 mg/dL (8.5-10.1); CHLORIDE 110 mmol/L (98-107); CO2 21 mmol/L (21-32); GLUCOSE,RANDOM 52 mg/dL (74-106); SODIUM 140 mmol/L (136-145)
[2021-05-24 17:15] LABS: CREATININE 1.3 mg/dL (0.55-1.3); SGPT/ALT 8 U/L (13-61)
[2021-05-24 17:16] LABS: BILIRUBIN,TOTAL 0.3 mg/dL (0.2-1); SGOT/AST 10 U/L (15-37); TOT PROT 6.1 g/dl (6.4-8.2)
[2021-05-24 17:18] LABS: ALK PHOS 78 U/L (45-117)
[2021-05-24] MEDS ORDERED: POTASSIUM CHLORIDE ORAL LIQUID 20 MEQ/15 ML PO ONE (17:44)
[2021-05-24 17:47] LABS: PH,URINE 6.5 (5.0-8.0); URINE APPEARANCE CLEAR; URINE BILIRUBIN NEGATIVE (NEGATIVE); URINE COLOR YELLOW; URINE GLUCOSE (UA) NEGATIVE (NEGATIVE); URINE KETONE NEGATIVE (NEGATIVE); URINE LEUK ESTERASE NEGATIVE (NEGATIVE); URINE NITRITE NEGATIVE (NEGATIVE); URINE PROTEIN TRACE (NEGATIVE); URINE UROBILINOGEN 0.2 mg/dL (0.2-1.0)
[2021-05-24] MEDS ORDERED: POTASSIUM CHLORIDE ORAL LIQUID 20 MEQ/15 ML ONE (18:41)
[2021-05-24 21:58] LABS: MAGNESIUM 2.5 mg/dL (1.8-2.4)
[2021-05-24] MEDS ORDERED: PIPERACILLIN/TAZOB 3.375 GM 3.375 GM/50 ML BAG IVPB ONE (22:06)
[2021-05-24] MEDS: PIPERACILLIN/TAZOB 3.375 GM 3.375 GM in DEXTROSE 5%-WATER - 50 ML IVPB SCH (22:32)
[2021-05-24] MEDS: SODIUM CHLORIDE 1,000 ML IV SCH (22:32)
[2021-05-24 23:04] LABS: COCAINE, UR NEGATIVE (NEGATIVE); PHENCYCLIDINE,URINE NEGATIVE (NEGATIVE); URINE BARBITURATES NEGATIVE (NEGATIVE)
[2021-05-24 23:21] LABS: METHADONE, UR POSITIVE (NEGATIVE); OPIATES, URI POSITIVE (NEGATIVE); URINE AMPHETAMINES NEGATIVE (NEGATIVE); URINE BENZODIAZEPINES NEGATIVE (NEGATIVE)
[2021-05-25] MEDS ORDERED: PIPERACILLIN/TAZOB 3.375 GM 3.375 GM/50 ML BAG IVPB ONE ×2 (05:22→14:17)
[2021-05-25] MEDS: PIPERACILLIN/TAZOB 3.375 GM 3.375 GM in DEXTROSE 5%-WATER - 50 ML IVPB SCH ×2 (05:41→14:32)
[2021-05-25 07:19] LABS: HEMATOCRIT 33.1 % (35.4-49); HEMOGLOBIN 10.4 GM/dL (11.7-16.9); MCH 26.1 pg (25.7-33.7); MCHC 31.4 g/dl (32.0-35.9); MEAN CELL VOLUME 83.1 fl (80-96); PLATELET COUNT 257 10^3/uL (134-434); RBC 3.98 M/mm3 (4.00-5.60); WHITE BLOOD COUNT 5.3 K/mm3 (4.0-10.0)
[2021-05-25 07:35] LABS: CALCIUM 8.1 mg/dL (8.5-10.1); MAGNESIUM 2.6 mg/dL (1.8-2.4)
[2021-05-25 07:37] LABS: ALBUMIN 2.7 g/dl (3.4-5.0); BLOOD UREA NITROGEN 10.7 mg/dL (7-18)
[2021-05-25 07:39] LABS: CREATININE 1.4 mg/dL (0.55-1.3); PHOSPHOROUS 2.3 mg/dL (2.5-4.9)
[2021-05-25 07:41] LABS: BILIRUBIN,TOTAL 0.4 mg/dL (0.2-1); TOT PROT 6.1 g/dl (6.4-8.2)
[2021-05-25 08:26] LABS: INR 1.29 (0.83-1.09); PROTHROMBIN TIME (PATIENT) 14.9 SEC (9.7-13.0)
[2021-05-25] MEDS: LEVOTHYROXINE NA 75 MCG TABLET (FP) PO SCH (08:58)
[2021-05-25] MEDS ORDERED: methaDONE HCL 10 MG TABLET PO SCH (09:30)
[2021-05-25 09:39] LABS: ANISOCYTOSIS 2+; MACROCYTOSIS 0; OVALOCYTE 2+; PLATELET ESTIMATE NORMAL
[2021-05-25] MEDS ORDERED: NAPH,MB-DB/K PH,MBDB POWDER PACKET PO ONE (10:00)
[2021-05-25] MEDS ORDERED: methaDONE HCL 10 MG TABLET ONE (10:13)
[2021-05-25] MEDS ORDERED: NAPH,MB-DB/K PH,MBDB POWDER PACKET ONE (10:14)
[2021-05-25] MEDS ORDERED: metoPROLOL SUCCINATE 25 MG TAB.SR.24H (FP) ONE (10:14)
[2021-05-25] MEDS: metoPROLOL SUCCINATE 25 MG TAB.SR.24H (FP) PO SCH (10:24)
[2021-05-25] MEDS: METHADONE PO SCH (10:58)
[2021-05-25] MEDS: BICTEGRAV/EMTRICIT/TENOFOV (BIKTARVY) 50-200-25 MG TABLET PO SCH (14:20)
[2021-05-25 14:22] LABS: PH,URINE 6.5 (5.0-8.0); URINE APPEARANCE CLEAR; URINE BILIRUBIN NEGATIVE (NEGATIVE); URINE COLOR YELLOW; URINE GLUCOSE (UA) NEGATIVE (NEGATIVE); URINE KETONE NEGATIVE (NEGATIVE); URINE LEUK ESTERASE NEGATIVE (NEGATIVE); URINE NITRITE NEGATIVE (NEGATIVE); URINE PROTEIN TRACE (NEGATIVE); URINE UROBILINOGEN 0.2 mg/dL (0.2-1.0)
[2021-05-26] MEDS: SODIUM CHLORIDE 1,000 ML IV SCH (00:20)
[2021-05-26] MEDS: ATORVASTATIN CA 10 MG TABLET (FP) PO SCH ×2 (00:21→21:30)
[2021-05-26] MEDS: PIPERACILLIN/TAZOB 3.375 GM 3.375 GM in DEXTROSE 5%-WATER - 50 ML IVPB SCH ×4 (00:22→21:30)
[2021-05-26] MEDS ORDERED: methaDONE HCL 10 MG TABLET ONE (03:52)
[2021-05-26] MEDS ORDERED: DEXTROSE 5%-WATER - 50 ML IVPB ONE ×3 (03:55→21:23)
[2021-05-26] MEDS ORDERED: PIPERACILLIN/TAZOBACTAM 3.375 GM VIAL IVPB ONE ×3 (03:55→21:22)
[2021-05-26] MEDS: METHADONE PO SCH (05:59)
[2021-05-26] MEDS: LEVOTHYROXINE NA 75 MCG TABLET (FP) PO SCH (06:00)
[2021-05-26] MEDS: TAMSULOSIN HCL 0.4 MG CAP PO SCH (09:00)
[2021-05-26 09:22] LABS: HEMATOCRIT 33.7 % (35.4-49); HEMOGLOBIN 10.4 GM/dL (11.7-16.9); MCH 25.3 pg (25.7-33.7); MCHC 30.8 g/dl (32.0-35.9); MEAN CELL VOLUME 82.1 fl (80-96); MEAN PLT VOLUME 8.9 fl (7.5-11.1); PLATELET COUNT 278 10^3/uL (134-434); RBC 4.11 M/mm3 (4.00-5.60); RDW 18.3 % (11.9-15.9); WHITE BLOOD COUNT 6.2 K/mm3 (4.0-10.0)
[2021-05-26 09:53] LABS: CALCIUM 8.5 mg/dL (8.5-10.1)
[2021-05-26 09:55] LABS: ALBUMIN 2.8 g/dl (3.4-5.0); BLOOD UREA NITROGEN 7.9 mg/dL (7-18); MAGNESIUM 2.5 mg/dL (1.8-2.4)
[2021-05-26 09:57] LABS: BILIRUBIN,TOTAL 0.4 mg/dL (0.2-1); CREATININE 1.3 mg/dL (0.55-1.3)
[2021-05-26 09:58] LABS: TOT PROT 6.2 g/dl (6.4-8.2)
[2021-05-26] MEDS: BICTEGRAV/EMTRICIT/TENOFOV (BIKTARVY) 50-200-25 MG TABLET PO SCH (11:00)
[2021-05-26] MEDS: metoPROLOL SUCCINATE 25 MG TAB.SR.24H (FP) PO SCH (11:00)
[2021-05-26] MEDS: ASPIRIN COATED 81 MG TABLET.EC PO SCH (11:00)
[2021-05-26] MEDS ORDERED: POTASSIUM CHLORIDE TABS 20 MEQ TABLET.ER (FP) PO ONE (11:42)
[2021-05-26] MEDS: FERROUS SO4 325 MG TABLET (FP) PO SCH (13:27)
[2021-05-27] MEDS ORDERED: methaDONE HCL 10 MG TABLET ONE (06:12)
[2021-05-27] MEDS: LEVOTHYROXINE NA 75 MCG TABLET (FP) PO SCH (06:32)
[2021-05-27] MEDS: PIPERACILLIN/TAZOB 3.375 GM 3.375 GM in DEXTROSE 5%-WATER - 50 ML IVPB SCH ×2 (06:32→14:35)
[2021-05-27] MEDS: METHADONE PO SCH (06:32)
[2021-05-27 08:53] LABS: HEMATOCRIT 34.9 % (35.4-49); HEMOGLOBIN 10.6 GM/dL (11.7-16.9); MCH 25.4 pg (25.7-33.7); MCHC 30.4 g/dl (32.0-35.9); MEAN CELL VOLUME 83.3 fl (80-96); MEAN PLT VOLUME 9.5 fl (7.5-11.1); PLATELET COUNT 289 10^3/uL (134-434); RBC 4.19 M/mm3 (4.00-5.60); RDW 18.8 % (11.9-15.9); WHITE BLOOD COUNT 5.5 K/mm3 (4.0-10.0)
[2021-05-27 09:22] LABS: ALBUMIN 2.8 g/dl (3.4-5.0); BLOOD UREA NITROGEN 9.6 mg/dL (7-18)
[2021-05-27 09:25] LABS: CREATININE 1.3 mg/dL (0.55-1.3)
[2021-05-27 09:26] LABS: TOT PROT 6.2 g/dl (6.4-8.2)
[2021-05-27 09:27] LABS: BILIRUBIN,TOTAL 0.3 mg/dL (0.2-1)
[2021-05-27 09:28] LABS: CALCIUM 8.6 mg/dL (8.5-10.1)
[2021-05-27] MEDS: TAMSULOSIN HCL 0.4 MG CAP PO SCH (09:30)
[2021-05-27] MEDS ORDERED: POLYETHYLENE GLYCOL (HEALTHYLAX) 3350 17 GM PACKET PO SCH (10:00)
[2021-05-27 10:18] VITALS: BP 102/51; PULSE 69; TEMP 97.8
[2021-05-27] MEDS: FERROUS SO4 325 MG TABLET (FP) PO SCH (11:00)
[2021-05-27] MEDS: BICTEGRAV/EMTRICIT/TENOFOV (BIKTARVY) 50-200-25 MG TABLET PO SCH (11:00)
[2021-05-27] MEDS: ASPIRIN COATED 81 MG TABLET.EC PO SCH (11:00)
[2021-05-27] MEDS: metoPROLOL SUCCINATE 25 MG TAB.SR.24H (FP) PO SCH (11:00)
[2021-05-28 16:40] VITALS: BMI 20.3
== END 2021-05-27 17:05 | disposition home or self-care (01) ==
LOC: JER 08:51 → UNDOADMOB 17:52 → JERBED 17:52 → INTOOBSV 21:41 → OBSVTOIN 21:41 → JERBED 05-25 14:04 → J6WEST-2 05-25 20:28
PROVIDERS: ADMIT Internal Medicine
DX: R55 Syncope and collapse (principal); I12.9 Hypertensive chronic kidney disease with stage 1 through stage 4 chronic kidney disease, or unspecified chronic kidney disease; N18.9 Chronic kidney disease, unspecified; Z21 Asymptomatic human immunodeficiency virus [HIV] infection status; I25.10 Atherosclerotic heart disease of native coronary artery without angina pectoris; E78.5 Hyperlipidemia, unspecified; K74.60 Unspecified cirrhosis of liver; F17.210 Nicotine dependence, cigarettes, uncomplicated; F11.20 Opioid dependence, uncomplicated; E87.6 Hypokalemia; E86.0 Dehydration; D35.2 Benign neoplasm of pituitary gland; D64.89 Other specified anemias; Z85.841 Personal history of malignant neoplasm of brain; Z88.2 Allergy status to sulfonamides; Z88.1 Allergy status to other antibiotic agents; Z86.19 Personal history of other infectious and parasitic diseases; Z86.718 Personal history of other venous thrombosis and embolism; Z93.59 Other cystostomy status; Z95.3 Presence of xenogenic heart valve
CPT/HCPCS: 36415; 70450-TC; 71045-TC-FY; 76705-TC; 80053; 80307; 81003; 82550; 82607; 82728; 82746; 82962; 83540; 83550; 83605; 83735; 84100; 84132; 84484; 85025; 85027; 85610; 85730; 87040; 87086; 87804; 87807; 93005; 93010; 97116-GP; 97161-GP; 99285-25; C9803; G0378; U0003; U0005

== ENCOUNTER 2021-07-07 08:49 | Inpatient (IN) | payer OTHER ==
[2021-07-07] MEDS ORDERED: morphine SULFATE 4 MG/ML VIAL IVPUSH ONE (11:05)
[2021-07-07] MEDS ORDERED: ACETAMINOPHEN 1000 MG/100 ML BAG IVPB ONE (11:05)
[2021-07-07] MEDS ORDERED: ACETAMINOPHEN INJECTION 100 ML IVPB ONE (11:27)
[2021-07-07 11:32] LABS: BASO % 1.2 % (0-2.0); EOS % 8.6 % (0-4.5); HEMATOCRIT 35.4 % (35.4-49); HEMOGLOBIN 11.4 GM/dL (11.7-16.9); MCH 27.3 pg (25.7-33.7); MCHC 32.2 g/dl (32.0-35.9); MEAN PLT VOLUME 8.8 fl (7.5-11.1); MONO % 6.8 % (3.8-10.2); NEUT % 54.4 % (42.8-82.8); PLATELET COUNT 289 10^3/uL (134-434); RBC 4.16 M/mm3 (4.00-5.60); RDW 21.7 % (11.9-15.9); WHITE BLOOD COUNT 5.9 K/mm3 (4.0-10.0)
[2021-07-07 11:41] LABS: URINE APPEARANCE CLEAR; URINE BILIRUBIN NEGATIVE (NEGATIVE); URINE COLOR YELLOW; URINE GLUCOSE (UA) NEGATIVE (NEGATIVE); URINE KETONE NEGATIVE (NEGATIVE); URINE LEUK ESTERASE NEGATIVE (NEGATIVE); URINE NITRITE NEGATIVE (NEGATIVE); URINE PROTEIN NEGATIVE (NEGATIVE); URINE UROBILINOGEN 0.2 mg/dL (0.2-1.0)
[2021-07-07 11:43] LABS: INR 1.21 (0.83-1.09); PROTHROMBIN TIME (PATIENT) 13.9 SEC (9.7-13.0)
[2021-07-07 11:46] LABS: ACTIVATED PTT 38.9 SECONDS (25.2-36.5)
[2021-07-07 12:18] LABS: ALBUMIN 3.6 g/dl (3.4-5.0); CALCIUM 9.3 mg/dL (8.5-10.1)
[2021-07-07 12:21] LABS: CREATININE 1.6 mg/dL (0.55-1.3)
[2021-07-07 12:23] LABS: BILIRUBIN,TOTAL 0.4 mg/dL (0.2-1); TOT PROT 7.8 g/dl (6.4-8.2)
[2021-07-07 13:09] LABS: ANISOCYTOSIS 2+; MACROCYTOSIS 0; OVALOCYTE 1+; TARGET CELLS 1+; TEAR DROP CELLS 1+
[2021-07-07] MEDS ORDERED: PIPERACILLIN/TAZOB 4.5 GM 4.5 GM in DEXTROSE 5%-WATER 100 ML IVPB ONE (13:58)
[2021-07-07] MEDS ORDERED: ACETAMINOPHEN 1000 MG/100 ML BAG IVPB PRN (15:25)
[2021-07-07 15:28] LABS: PLATELET ESTIMATE ADEQUATE
[2021-07-07] MEDS ORDERED: PIPERACILLIN/TAZOB 4.5 GM 4.5 GM/100 ML BAG IVPB ONE (17:12)
[2021-07-07] MEDS: SODIUM CHLORIDE 1,000 ML IV SCH (17:26)
[2021-07-07] MEDS ORDERED: PIPERACILLIN/TAZOB 2.25 GM 2.25 GM in DEXTROSE 5%-WATER - 50 ML IVPB ONE (17:55)
[2021-07-07] MEDS ORDERED: PIPERACILLIN/TAZOB 2.25 GM 2.25 GM in DEXTROSE 5%-WATER - 50 ML IVPB SCH (18:00)
[2021-07-08] MEDS ORDERED: ATORVASTATIN CA 10 MG TABLET (FP) ONE (00:09)
[2021-07-08] MEDS ORDERED: PIPERACILLIN/TAZOB 2.25 GM 2.25 GM/50 ML BAG IVPB ONE (00:10)
[2021-07-08] MEDS: PIPERACILLIN/TAZOB 2.25 GM 2.25 GM in DEXTROSE 5%-WATER - 50 ML IVPB SCH ×5 (00:17→23:52)
[2021-07-08] MEDS: ATORVASTATIN CA 10 MG TABLET (FP) PO SCH ×2 (00:17→21:26)
[2021-07-08 01:45] VITALS: BMI 16.9
[2021-07-08] MEDS ORDERED: DEXTROSE 5%-WATER - 50 ML IVPB ONE ×4 (05:40→23:45)
[2021-07-08] MEDS ORDERED: PIPERACILLIN/TAZOBACTAM 2.25 GM VIAL IVPB ONE ×4 (05:40→23:45)
[2021-07-08] MEDS: LEVOTHYROXINE NA 75 MCG TABLET (FP) PO SCH (06:21)
[2021-07-08 08:51] LABS: BASO % 0.8 % (0-2.0); EOS % 9.8 % (0-4.5); HEMATOCRIT 32.2 % (35.4-49); HEMOGLOBIN 10.3 GM/dL (11.7-16.9); MCH 27.2 pg (25.7-33.7); MCHC 31.8 g/dl (32.0-35.9); MEAN CELL VOLUME 85.3 fl (80-96); MEAN PLT VOLUME 9.2 fl (7.5-11.1); MONO % 6.4 % (3.8-10.2); PLATELET COUNT 296 10^3/uL (134-434); RBC 3.78 M/mm3 (4.00-5.60); RDW 21.8 % (11.9-15.9); WHITE BLOOD COUNT 5.9 K/mm3 (4.0-10.0)
[2021-07-08 09:18] LABS: CHLORIDE 110 mmol/L (98-107); SODIUM 139 mmol/L (136-145)
[2021-07-08 09:20] LABS: CALCIUM 8.6 mg/dL (8.5-10.1)
[2021-07-08 09:21] LABS: ALBUMIN 3.2 g/dl (3.4-5.0); ANION GAP 9 MMOL/L (8-16); BLOOD UREA NITROGEN 21.3 mg/dL (7-18); CO2 20 mmol/L (21-32); MAGNESIUM 2.7 mg/dL (1.8-2.4)
[2021-07-08 09:24] LABS: CREATININE 1.3 mg/dL (0.55-1.3); PHOSPHOROUS 2.5 mg/dL (2.5-4.9); SGOT/AST 12 U/L (15-37); SGPT/ALT 14 U/L (13-61)
[2021-07-08 09:25] LABS: BILIRUBIN,TOTAL 0.4 mg/dL (0.2-1)
[2021-07-08 09:27] LABS: ALK PHOS 133 U/L (45-117)
[2021-07-08 09:28] LABS: GLUCOSE,RANDOM 49 mg/dL (74-106)
[2021-07-08] MEDS: FERROUS SO4 325 MG TABLET (FP) PO SCH (10:56)
[2021-07-08] MEDS: TAMSULOSIN HCL 0.4 MG CAP PO SCH (10:57)
[2021-07-08] MEDS: ASPIRIN COATED 81 MG TABLET.EC PO SCH (10:57)
[2021-07-08] MEDS: metoPROLOL SUCCINATE 25 MG TAB.SR.24H (FP) PO SCH (10:57)
[2021-07-08] MEDS ORDERED: PIPERACILLIN/TAZOB 2.25 GM 2.25 GM in DEXTROSE 5%-WATER - 50 ML IVPB SCH (12:00)
[2021-07-08] MEDS: BICTEGRAV/EMTRICIT/TENOFOV (BIKTARVY) 50-200-25 MG TABLET PO SCH (12:05)
[2021-07-08] MEDS: SODIUM CHLORIDE 1,000 ML IV SCH (17:12)
[2021-07-09] MEDS ORDERED: DEXTROSE 5%-WATER - 50 ML IVPB ONE ×4 (05:01→22:57)
[2021-07-09] MEDS ORDERED: PIPERACILLIN/TAZOBACTAM 2.25 GM VIAL IVPB ONE ×4 (05:01→22:57)
[2021-07-09] MEDS: PIPERACILLIN/TAZOB 2.25 GM 2.25 GM in DEXTROSE 5%-WATER - 50 ML IVPB SCH ×4 (05:08→23:09)
[2021-07-09] MEDS: LEVOTHYROXINE NA 75 MCG TABLET (FP) PO SCH (06:02)
[2021-07-09 07:53] LABS: BASO % 1.4 % (0-2.0); EOS % 14.1 % (0-4.5); HEMATOCRIT 29.7 % (35.4-49); HEMOGLOBIN 9.9 GM/dL (11.7-16.9); LYMPH % 29.6 % (8-40); MCH 27.8 pg (25.7-33.7); MCHC 33.3 g/dl (32.0-35.9); MEAN CELL VOLUME 83.5 fl (80-96); MEAN PLT VOLUME 8.9 fl (7.5-11.1); MONO % 8.3 % (3.8-10.2); NEUT % 46.6 % (42.8-82.8); PLATELET COUNT 255 10^3/uL (134-434); RBC 3.56 M/mm3 (4.00-5.60); RDW 21.7 % (11.9-15.9); WHITE BLOOD COUNT 4.6 K/mm3 (4.0-10.0)
[2021-07-09 08:17] LABS: ALBUMIN 2.7 g/dl (3.4-5.0); BLOOD UREA NITROGEN 18.2 mg/dL (7-18)
[2021-07-09 08:20] LABS: CREATININE 1.3 mg/dL (0.55-1.3)
[2021-07-09 08:21] LABS: BILIRUBIN,TOTAL 0.4 mg/dL (0.2-1); TOT PROT 6.2 g/dl (6.4-8.2)
[2021-07-09] MEDS: TAMSULOSIN HCL 0.4 MG CAP PO SCH (10:16)
[2021-07-09] MEDS: metoPROLOL SUCCINATE 25 MG TAB.SR.24H (FP) PO SCH (10:16)
[2021-07-09] MEDS: FERROUS SO4 325 MG TABLET (FP) PO SCH (10:16)
[2021-07-09] MEDS: ASPIRIN COATED 81 MG TABLET.EC PO SCH (10:16)
[2021-07-09] MEDS: D5-1/2NS+20 MEQ KCL - 20 MEQ/1,000 ML INFUS.BAG IV SCH (10:16)
[2021-07-09] MEDS: BICTEGRAV/EMTRICIT/TENOFOV (BIKTARVY) 50-200-25 MG TABLET PO SCH (10:17)
[2021-07-09] MEDS: HEPARIN NA (PORCINE) 5,000 UNITS/ML 1ML VIAL SQ SCH ×2 (15:09→21:24)
[2021-07-09] MEDS: ATORVASTATIN CA 10 MG TABLET (FP) PO SCH (21:24)
[2021-07-10] MEDS ORDERED: PIPERACILLIN/TAZOBACTAM 2.25 GM VIAL IVPB ONE ×3 (04:59→17:11)
[2021-07-10] MEDS ORDERED: DEXTROSE 5%-WATER - 50 ML IVPB ONE ×3 (04:59→17:11)
[2021-07-10] MEDS: HEPARIN NA (PORCINE) 5,000 UNITS/ML 1ML VIAL SQ SCH ×3 (05:15→21:08)
[2021-07-10] MEDS: PIPERACILLIN/TAZOB 2.25 GM 2.25 GM in DEXTROSE 5%-WATER - 50 ML IVPB SCH ×3 (05:15→17:43)
[2021-07-10] MEDS: LEVOTHYROXINE NA 75 MCG TABLET (FP) PO SCH (06:15)
[2021-07-10 08:36] LABS: BASO % 2.1 % (0-2.0); EOS % 15.3 % (0-4.5); HEMATOCRIT 34.1 % (35.4-49); HEMOGLOBIN 11.1 GM/dL (11.7-16.9); LYMPH % 43.3 % (8-40); MCH 27.3 pg (25.7-33.7); MCHC 32.4 g/dl (32.0-35.9); MEAN CELL VOLUME 84.1 fl (80-96); MEAN PLT VOLUME 9.1 fl (7.5-11.1); MONO % 10.4 % (3.8-10.2); NEUT % 28.9 % (42.8-82.8); PLATELET COUNT 276 10^3/uL (134-434); RBC 4.06 M/mm3 (4.00-5.60); RDW 21.1 % (11.9-15.9); WHITE BLOOD COUNT 3.9 K/mm3 (4.0-10.0)
[2021-07-10 08:57] LABS: CALCIUM 8.4 mg/dL (8.5-10.1)
[2021-07-10 08:58] LABS: ALBUMIN 2.9 g/dl (3.4-5.0); BLOOD UREA NITROGEN 16.7 mg/dL (7-18)
[2021-07-10 09:01] LABS: CREATININE 1.4 mg/dL (0.55-1.3)
[2021-07-10 09:03] LABS: BILIRUBIN,TOTAL 0.4 mg/dL (0.2-1); TOT PROT 6.8 g/dl (6.4-8.2)
[2021-07-10] MEDS: methaDONE HCL 10 MG TABLET PO SCH (10:16)
[2021-07-10] MEDS: TAMSULOSIN HCL 0.4 MG CAP PO SCH (10:17)
[2021-07-10] MEDS: FERROUS SO4 325 MG TABLET (FP) PO SCH (10:17)
[2021-07-10] MEDS: metoPROLOL SUCCINATE 25 MG TAB.SR.24H (FP) PO SCH (10:17)
[2021-07-10] MEDS: ASPIRIN COATED 81 MG TABLET.EC PO SCH (10:17)
[2021-07-10] MEDS: BICTEGRAV/EMTRICIT/TENOFOV (BIKTARVY) 50-200-25 MG TABLET PO SCH (10:20)
[2021-07-10] MEDS: D5-1/2NS+20 MEQ KCL - 20 MEQ/1,000 ML INFUS.BAG IV SCH ×2 (10:20)
[2021-07-10] MEDS ORDERED: D5-1/2NS+20 MEQ KCL - 20 MEQ/1,000 ML INFUS.BAG IV SCH (12:30)
[2021-07-10] MEDS: ATORVASTATIN CA 10 MG TABLET (FP) PO SCH (21:08)
[2021-07-11] MEDS ORDERED: PIPERACILLIN/TAZOBACTAM 2.25 GM VIAL IVPB ONE ×3 (00:20→13:15)
[2021-07-11] MEDS ORDERED: DEXTROSE 5%-WATER - 50 ML IVPB ONE ×3 (00:20→13:15)
[2021-07-11] MEDS: PIPERACILLIN/TAZOB 2.25 GM 2.25 GM in DEXTROSE 5%-WATER - 50 ML IVPB SCH ×3 (00:27→13:17)
[2021-07-11] MEDS: HEPARIN NA (PORCINE) 5,000 UNITS/ML 1ML VIAL SQ SCH ×3 (05:17→21:32)
[2021-07-11] MEDS: methaDONE HCL 10 MG TABLET PO SCH (05:18)
[2021-07-11] MEDS: LEVOTHYROXINE NA 75 MCG TABLET (FP) PO SCH (06:08)
[2021-07-11] MEDS: TAMSULOSIN HCL 0.4 MG CAP PO SCH (11:04)
[2021-07-11] MEDS: FERROUS SO4 325 MG TABLET (FP) PO SCH (11:05)
[2021-07-11] MEDS: ASPIRIN COATED 81 MG TABLET.EC PO SCH (11:05)
[2021-07-11] MEDS: BICTEGRAV/EMTRICIT/TENOFOV (BIKTARVY) 50-200-25 MG TABLET PO SCH (11:05)
[2021-07-11] MEDS: metoPROLOL SUCCINATE 25 MG TAB.SR.24H (FP) PO SCH (11:05)
[2021-07-11] MEDS ORDERED: AMPICILLIN NA/SULBACTAM NA 3 GM VIAL ONE (17:26)
[2021-07-11] MEDS ORDERED: SODIUM CHLORIDE 100 ML IVPB ONE (17:26)
[2021-07-11] MEDS: AMPICILLIN NA/SULBACTAM NA 3 GM in SODIUM CHLORIDE 100 ML IVPB SCH (17:35)
[2021-07-11] MEDS: ATORVASTATIN CA 10 MG TABLET (FP) PO SCH (21:33)
[2021-07-12] MEDS ORDERED: SODIUM CHLORIDE 100 ML IVPB ONE ×3 (01:30→17:28)
[2021-07-12] MEDS ORDERED: AMPICILLIN NA/SULBACTAM NA 3 GM VIAL ONE ×3 (01:30→17:27)
[2021-07-12] MEDS: AMPICILLIN NA/SULBACTAM NA 3 GM in SODIUM CHLORIDE 100 ML IVPB SCH ×3 (01:57→17:32)
[2021-07-12] MEDS: HEPARIN NA (PORCINE) 5,000 UNITS/ML 1ML VIAL SQ SCH ×3 (05:51→22:32)
[2021-07-12] MEDS: methaDONE HCL 10 MG TABLET PO SCH (05:51)
[2021-07-12] MEDS: LEVOTHYROXINE NA 75 MCG TABLET (FP) PO SCH (06:32)
[2021-07-12 09:07] LABS: EOS % 14.7 % (0-4.5); HEMATOCRIT 32.8 % (35.4-49); HEMOGLOBIN 10.7 GM/dL (11.7-16.9); LYMPH % 42.3 % (8-40); MCH 27.1 pg (25.7-33.7); MCHC 32.5 g/dl (32.0-35.9); MEAN CELL VOLUME 83.4 fl (80-96); MEAN PLT VOLUME 9.1 fl (7.5-11.1); PLATELET COUNT 286 10^3/uL (134-434); RBC 3.93 M/mm3 (4.00-5.60)
[2021-07-12 09:16] LABS: CALCIUM 8.4 mg/dL (8.5-10.1)
[2021-07-12 09:17] LABS: ALBUMIN 2.9 g/dl (3.4-5.0); BLOOD UREA NITROGEN 12.4 mg/dL (7-18); MAGNESIUM 2.6 mg/dL (1.8-2.4)
[2021-07-12 09:20] LABS: CREATININE 1.2 mg/dL (0.55-1.3); PHOSPHOROUS 2.8 mg/dL (2.5-4.9)
[2021-07-12 09:22] LABS: BILIRUBIN,TOTAL 0.4 mg/dL (0.2-1); TOT PROT 6.9 g/dl (6.4-8.2)
[2021-07-12] MEDS: ASPIRIN COATED 81 MG TABLET.EC PO SCH (11:48)
[2021-07-12] MEDS: TAMSULOSIN HCL 0.4 MG CAP PO SCH (11:48)
[2021-07-12] MEDS: metoPROLOL SUCCINATE 25 MG TAB.SR.24H (FP) PO SCH (11:48)
[2021-07-12] MEDS: BICTEGRAV/EMTRICIT/TENOFOV (BIKTARVY) 50-200-25 MG TABLET PO SCH (11:49)
[2021-07-12] MEDS: FERROUS SO4 325 MG TABLET (FP) PO SCH (11:49)
[2021-07-12] MEDS ORDERED: POTASSIUM CHLORIDE 10 MEQ in SODIUM CHLORIDE 0.45% 1,000 ML IVPB SCH (16:00)
[2021-07-12] MEDS: ATORVASTATIN CA 10 MG TABLET (FP) PO SCH (22:32)
[2021-07-13] MEDS ORDERED: AMPICILLIN NA/SULBACTAM NA 3 GM VIAL ONE ×2 (01:19→10:39)
[2021-07-13] MEDS ORDERED: SODIUM CHLORIDE 100 ML IVPB ONE ×2 (01:20→10:40)
[2021-07-13] MEDS: AMPICILLIN NA/SULBACTAM NA 3 GM in SODIUM CHLORIDE 100 ML IVPB SCH ×2 (01:47→11:03)
[2021-07-13] MEDS: methaDONE HCL 10 MG TABLET PO SCH (05:25)
[2021-07-13] MEDS: HEPARIN NA (PORCINE) 5,000 UNITS/ML 1ML VIAL SQ SCH ×2 (05:26→15:12)
[2021-07-13] MEDS: LEVOTHYROXINE NA 75 MCG TABLET (FP) PO SCH (06:25)
[2021-07-13 07:53] VITALS: BP 118/59; PULSE 72; TEMP 97.3
[2021-07-13] MEDS: metoPROLOL SUCCINATE 25 MG TAB.SR.24H (FP) PO SCH (10:59)
[2021-07-13] MEDS: TAMSULOSIN HCL 0.4 MG CAP PO SCH (10:59)
[2021-07-13] MEDS: ASPIRIN COATED 81 MG TABLET.EC PO SCH (10:59)
[2021-07-13] MEDS: FERROUS SO4 325 MG TABLET (FP) PO SCH (10:59)
[2021-07-13] MEDS: BICTEGRAV/EMTRICIT/TENOFOV (BIKTARVY) 50-200-25 MG TABLET PO SCH (11:00)
== END 2021-07-13 14:51 | disposition short-term general hospital (02) | DRG 813 ==
LOC: JER 08:49 → UNDOADMIN 13:59 → INTOOBSV 13:59 → JERBED 13:59 → OBSVTOIN 13:59 → JERBED 07-08 00:27 → J8W 07-08 00:27 → JERBED 07-09 08:57
PROVIDERS: ADMIT Internal Medicine
PROC: 0F24X0Z Change Drainage Device in Gallbladder, External Approach (ICD-10-PCS; principal; 2021-07-07)
PROC: BF12YZZ Fluoroscopy of Gallbladder using Other Contrast (ICD-10-PCS; 2021-07-07)
DX: T85.618A Breakdown (mechanical) of other specified internal prosthetic devices, implants and grafts, initial encounter (principal); E43 Unspecified severe protein-calorie malnutrition; N17.9 Acute kidney failure, unspecified; K56.7 Ileus, unspecified; R64 Cachexia; I12.9 Hypertensive chronic kidney disease with stage 1 through stage 4 chronic kidney disease, or unspecified chronic kidney disease; E78.5 Hyperlipidemia, unspecified; I25.10 Atherosclerotic heart disease of native coronary artery without angina pectoris; Z95.2 Presence of prosthetic heart valve; N18.2 Chronic kidney disease, stage 2 (mild); Z21 Asymptomatic human immunodeficiency virus [HIV] infection status; K74.60 Unspecified cirrhosis of liver; Z68.1 Body mass index [BMI] 19.9 or less, adult; Y83.9 Surgical procedure, unspecified as the cause of abnormal reaction of the patient, or of later complication, without mention of misadventure at the time of the procedure; E03.9 Hypothyroidism, unspecified
CPT/HCPCS: 36415; 47531; 47536; 71045-TC-FY; 74176-TC; 76705-TC; 76775-TC; 80048; 80053; 81003; 82436; 82570; 82962; 83605; 83690; 83735; 84100; 84133; 84156; 84300; 84484; 85025; 85610; 85730; 86359; 86360; 86850; 86900; 86901; 87040; 87070; 87075; 87086; 87102; 87116; 87186; 87205; 87206; 87210; 93005; 93010; 93306-TC; 99285-25; C9803; J1644; U0003; U0005

== ENCOUNTER 2021-08-11 09:02 | Inpatient (IN) | payer OTHER ==
[2021-08-11] MEDS ORDERED: SODIUM CHLORIDE IV ONE (09:47)
[2021-08-11 10:01] LABS: BASO % 3.4 % (0-2.0); EOS % 16.9 % (0-4.5); HEMATOCRIT 36.2 % (35.4-49); HEMOGLOBIN 11.6 GM/dL (11.7-16.9); LYMPH % 38.4 % (8-40); MCH 27.2 pg (25.7-33.7); MONO % 6.6 % (3.8-10.2); NEUT % 34.7 % (42.8-82.8); PLATELET COUNT 315 10^3/uL (134-434); RBC 4.26 M/mm3 (4.00-5.60); WHITE BLOOD COUNT 5.8 K/mm3 (4.0-10.0)
[2021-08-11 10:06] LABS: INR 1.2 (0.83-1.09); PROTHROMBIN TIME (PATIENT) 13.8 SEC (9.7-13.0)
[2021-08-11] MEDS ORDERED: SODIUM CHLORIDE 0.9% 500 ML INFUS.BAG IV ONE (10:07)
[2021-08-11 10:09] LABS: ACTIVATED PTT 41.2 SECONDS (25.2-36.5); VENOUS BASE EXCESS -4.4 mmol/L (-2-2); VENOUS O2 SATURATION 58.9 % (70-80); VENOUS PH 7.339 (7.310-7.410)
[2021-08-11 10:27] LABS: ALBUMIN 3.4 g/dl (3.4-5.0); BLOOD UREA NITROGEN 10.9 mg/dL (7-18); CALCIUM 8.8 mg/dL (8.5-10.1)
[2021-08-11 10:30] LABS: CREATININE 1.6 mg/dL (0.55-1.3)
[2021-08-11 10:32] LABS: BILIRUBIN,TOTAL 0.3 mg/dL (0.2-1); TOT PROT 7.5 g/dl (6.4-8.2)
[2021-08-11 10:34] LABS: MAGNESIUM 2.9 mg/dL (1.8-2.4)
[2021-08-11 10:39] LABS: PHOSPHOROUS 3.4 mg/dL (2.5-4.9)
[2021-08-11 11:00] LABS: ANISOCYTOSIS 2+; MACROCYTOSIS 0; OVALOCYTE 2+; TEAR DROP CELLS 1+
[2021-08-11] MEDS ORDERED: LACTATED RINGERS SOLUTION 1000 ML INFUS.BAG IV ONE (12:08)
[2021-08-11] MEDS ORDERED: cloNIDine HCL 0.1 MG TABLET PO PRN (13:30)
[2021-08-11] MEDS ORDERED: methaDONE HCL 10 MG TABLET PO ONE (14:00)
[2021-08-12 09:02] LABS: CHLORIDE 109 mmol/L (98-107); SODIUM 138 mmol/L (136-145)
[2021-08-12 09:07] LABS: CALCIUM 8.6 mg/dL (8.5-10.1)
[2021-08-12 09:09] LABS: ALBUMIN 3.2 g/dl (3.4-5.0); ANION GAP 9 MMOL/L (8-16); BLOOD UREA NITROGEN 11.3 mg/dL (7-18); CO2 20 mmol/L (21-32); MAGNESIUM 2.6 mg/dL (1.8-2.4)
[2021-08-12 09:10] LABS: BASO % 2.1 % (0-2.0); HEMATOCRIT 31.5 % (35.4-49); HEMOGLOBIN 10.1 GM/dL (11.7-16.9); LYMPH % 45.6 % (8-40); MCH 27.4 pg (25.7-33.7); MCHC 32.3 g/dl (32.0-35.9); MEAN CELL VOLUME 85.1 fl (80-96); MEAN PLT VOLUME 9.2 fl (7.5-11.1); MONO % 7.4 % (3.8-10.2); NEUT % 28.9 % (42.8-82.8); PLATELET COUNT 287 10^3/uL (134-434); RDW 20.3 % (11.9-15.9); WHITE BLOOD COUNT 5.1 K/mm3 (4.0-10.0)
[2021-08-12 09:11] LABS: CREATININE 1.3 mg/dL (0.55-1.3); PHOSPHOROUS 2.8 mg/dL (2.5-4.9); SGOT/AST 13 U/L (15-37); SGPT/ALT 9 U/L (13-61)
[2021-08-12 09:12] LABS: BILIRUBIN,TOTAL 0.4 mg/dL (0.2-1); TOT PROT 6.5 g/dl (6.4-8.2)
[2021-08-12 09:15] LABS: ALK PHOS 99 U/L (45-117); GLUCOSE,RANDOM 46 mg/dL (74-106)
[2021-08-12] MEDS ORDERED: DEXTROSE 50%-WATER - 25 GM/50 ML VIAL IVPUSH ONE (09:17)
[2021-08-12] MEDS ORDERED: BICTEGRAV/EMTRICIT/TENOFOV (BIKTARVY) 50-200-25 MG TABLET PO SCH (10:00)
[2021-08-12] MEDS ORDERED: methaDONE HCL 10 MG TABLET ONE (10:15)
[2021-08-12] MEDS: LEVOTHYROXINE NA 75 MCG TABLET (FP) PO SCH (10:29)
[2021-08-12] MEDS: TAMSULOSIN HCL 0.4 MG CAP PO SCH (10:31)
[2021-08-12] MEDS: ZOLPIDEM TARTRATE 5 MG TABLET PO PRN (22:14)
[2021-08-13] MEDS: LEVOTHYROXINE NA 75 MCG TABLET (FP) PO SCH (06:30)
[2021-08-13] MEDS: TAMSULOSIN HCL 0.4 MG CAP PO SCH (08:26)
[2021-08-13] MEDS: methaDONE HCL 10 MG TABLET PO SCH (08:27)
[2021-08-13] MEDS: BICTEGRAV/EMTRICIT/TENOFOV (BIKTARVY) 50-200-25 MG TABLET PO SCH (09:05)
[2021-08-13] MEDS ORDERED: methaDONE HCL 10 MG TABLET PO ONE (10:00)
[2021-08-13] MEDS: MEGESTROL ACETATE 400 MG/10 ML UNIT DOSE CUP PO SCH (16:20)
[2021-08-13] MEDS: ATORVASTATIN CA 10 MG TABLET (FP) PO SCH (21:48)
[2021-08-13] MEDS: ZOLPIDEM TARTRATE 5 MG TABLET PO PRN (21:53)
[2021-08-14] MEDS: methaDONE HCL 10 MG TABLET PO SCH (05:37)
[2021-08-14] MEDS: LEVOTHYROXINE NA 75 MCG TABLET (FP) PO SCH (06:02)
[2021-08-14 08:59] LABS: INR 1.22 (0.83-1.09); PROTHROMBIN TIME (PATIENT) 14.1 SEC (9.7-13.0)
[2021-08-14 09:04] LABS: EOS % 10.3 % (0-4.5); HEMATOCRIT 31.4 % (35.4-49); HEMOGLOBIN 10.2 GM/dL (11.7-16.9); LYMPH % 41.3 % (8-40); MCH 27.2 pg (25.7-33.7); MCHC 32.3 g/dl (32.0-35.9); MEAN CELL VOLUME 84.1 fl (80-96); MEAN PLT VOLUME 9.3 fl (7.5-11.1); MONO % 7.2 % (3.8-10.2); NEUT % 40.2 % (42.8-82.8); PLATELET COUNT 275 10^3/uL (134-434); RBC 3.73 M/mm3 (4.00-5.60); RDW 19.9 % (11.9-15.9); WHITE BLOOD COUNT 4.7 K/mm3 (4.0-10.0)
[2021-08-14 09:22] LABS: MAGNESIUM 2.5 mg/dL (1.8-2.4)
[2021-08-14 09:25] LABS: CREATININE 1.4 mg/dL (0.55-1.3)
[2021-08-14 09:26] LABS: CALCIUM 8.6 mg/dL (8.5-10.1)
[2021-08-14 09:27] LABS: ALBUMIN 2.9 g/dl (3.4-5.0); BLOOD UREA NITROGEN 10.4 mg/dL (7-18); TOT PROT 6.4 g/dl (6.4-8.2)
[2021-08-14 09:29] LABS: PHOSPHOROUS 2.2 mg/dL (2.5-4.9)
[2021-08-14 09:31] LABS: BILIRUBIN,TOTAL 0.3 mg/dL (0.2-1)
[2021-08-14] MEDS: TAMSULOSIN HCL 0.4 MG CAP PO SCH (10:00)
[2021-08-14] MEDS: BICTEGRAV/EMTRICIT/TENOFOV (BIKTARVY) 50-200-25 MG TABLET PO SCH (10:00)
[2021-08-14] MEDS: ASPIRIN COATED 81 MG TABLET.EC PO SCH (10:00)
[2021-08-14] MEDS: FERROUS SO4 325 MG TABLET (FP) PO SCH (10:00)
[2021-08-14] MEDS: metoPROLOL SUCCINATE 25 MG TAB.SR.24H (FP) PO SCH (10:00)
[2021-08-14] MEDS: MEGESTROL ACETATE 400 MG/10 ML UNIT DOSE CUP PO SCH (10:01)
[2021-08-14] MEDS: ZOLPIDEM TARTRATE 5 MG TABLET PO PRN (21:25)
[2021-08-14] MEDS: ATORVASTATIN CA 10 MG TABLET (FP) PO SCH (21:25)
[2021-08-15] MEDS: methaDONE HCL 10 MG TABLET PO SCH (06:16)
[2021-08-15] MEDS: LEVOTHYROXINE NA 75 MCG TABLET (FP) PO SCH (06:16)
[2021-08-15 08:43] LABS: BASO % 1.4 % (0-2.0); EOS % 16.5 % (0-4.5); HEMATOCRIT 31.3 % (35.4-49); HEMOGLOBIN 10.2 GM/dL (11.7-16.9); LYMPH % 44.8 % (8-40); MCH 27.5 pg (25.7-33.7); MCHC 32.5 g/dl (32.0-35.9); MEAN CELL VOLUME 84.6 fl (80-96); MEAN PLT VOLUME 9.4 fl (7.5-11.1); MONO % 5.9 % (3.8-10.2); NEUT % 31.4 % (42.8-82.8); PLATELET COUNT 271 10^3/uL (134-434); RDW 20.5 % (11.9-15.9); WHITE BLOOD COUNT 4.7 K/mm3 (4.0-10.0)
[2021-08-15 09:32] LABS: CALCIUM 8.3 mg/dL (8.5-10.1)
[2021-08-15 09:33] LABS: ALBUMIN 2.8 g/dl (3.4-5.0); BLOOD UREA NITROGEN 16.4 mg/dL (7-18); MAGNESIUM 2.6 mg/dL (1.8-2.4)
[2021-08-15 09:36] LABS: ANISOCYTOSIS 1+; CREATININE 1.2 mg/dL (0.55-1.3); MACROCYTOSIS 1+; PHOSPHOROUS 2.4 mg/dL (2.5-4.9)
[2021-08-15 09:37] LABS: TOT PROT 6.3 g/dl (6.4-8.2)
[2021-08-15 09:38] LABS: BILIRUBIN,TOTAL 0.4 mg/dL (0.2-1)
[2021-08-15] MEDS ORDERED: methaDONE HCL 10 MG TABLET PO ONE (10:00)
[2021-08-15] MEDS: BICTEGRAV/EMTRICIT/TENOFOV (BIKTARVY) 50-200-25 MG TABLET PO SCH (10:04)
[2021-08-15] MEDS: TAMSULOSIN HCL 0.4 MG CAP PO SCH (10:05)
[2021-08-15] MEDS: MEGESTROL ACETATE 400 MG/10 ML UNIT DOSE CUP PO SCH (10:05)
[2021-08-15] MEDS: metoPROLOL SUCCINATE 25 MG TAB.SR.24H (FP) PO SCH (10:05)
[2021-08-15] MEDS: FERROUS SO4 325 MG TABLET (FP) PO SCH (10:05)
[2021-08-15 13:07] LABS: CARCINOEMBRYONIC ANTIGEN 8.3 ng/mL (0.0-4.7)
[2021-08-15] MEDS ORDERED: SODIUM CHLORIDE 500 ML IV STA (19:49)
[2021-08-15 20:07] LABS: GLIADIN ANTIBODY IGA 2 units (0-19); GLIADIN ANTIBODY IGG 2 units (0-19); TRANSGLUTAMINASE IGG < 2 U/mL (0-5)
[2021-08-15] MEDS: ATORVASTATIN CA 10 MG TABLET (FP) PO SCH (21:55)
[2021-08-16] MEDS: LEVOTHYROXINE NA 75 MCG TABLET (FP) PO SCH (06:25)
[2021-08-16] MEDS: methaDONE HCL 10 MG TABLET PO SCH (06:25)
[2021-08-16 08:25] LABS: BLOOD UREA NITROGEN 24.1 mg/dL (7-18); CALCIUM 8.9 mg/dL (8.5-10.1)
[2021-08-16 08:26] LABS: MAGNESIUM 2.7 mg/dL (1.8-2.4)
[2021-08-16 08:28] LABS: CREATININE 1.3 mg/dL (0.55-1.3); PHOSPHOROUS 2.6 mg/dL (2.5-4.9)
[2021-08-16 08:47] LABS: BASO % 1.7 % (0-2.0); EOS % 18.2 % (0-4.5); LYMPH % 39.6 % (8-40); MCH 28.1 pg (25.7-33.7); MCHC 33.4 g/dl (32.0-35.9); MEAN CELL VOLUME 84.1 fl (80-96); MEAN PLT VOLUME 9.5 fl (7.5-11.1); MONO % 4.9 % (3.8-10.2); NEUT % 35.6 % (42.8-82.8); PLATELET COUNT 274 10^3/uL (134-434); RBC 3.57 M/mm3 (4.00-5.60); RDW 20.1 % (11.9-15.9); WHITE BLOOD COUNT 5.9 K/mm3 (4.0-10.0)
[2021-08-16] MEDS: TAMSULOSIN HCL 0.4 MG CAP PO SCH (09:50)
[2021-08-16] MEDS: FERROUS SO4 325 MG TABLET (FP) PO SCH (09:50)
[2021-08-16] MEDS: MEGESTROL ACETATE 400 MG/10 ML UNIT DOSE CUP PO SCH (09:51)
[2021-08-16] MEDS: BICTEGRAV/EMTRICIT/TENOFOV (BIKTARVY) 50-200-25 MG TABLET PO SCH (09:54)
[2021-08-16] MEDS: metoPROLOL SUCCINATE 25 MG TAB.SR.24H (FP) PO SCH (10:00)
[2021-08-16] MEDS: ASPIRIN COATED 81 MG TABLET.EC PO SCH (10:00)
[2021-08-16] MEDS: SODIUM CHLORIDE 1,000 ML IV SCH ×2 (11:26→22:25)
[2021-08-16] MEDS: THIAMINE HCL 100 MG TABLET (FP) PO SCH (17:47)
[2021-08-16] MEDS: ATORVASTATIN CA 10 MG TABLET (FP) PO SCH (22:25)
[2021-08-17] MEDS: methaDONE HCL 10 MG TABLET PO SCH (06:22)
[2021-08-17] MEDS: LEVOTHYROXINE NA 75 MCG TABLET (FP) PO SCH (06:23)
[2021-08-17 08:28] LABS: BASO % 2.9 % (0-2.0); EOS % 16.5 % (0-4.5); HEMATOCRIT 27.6 % (35.4-49); LYMPH % 33.1 % (8-40); MCH 27.8 pg (25.7-33.7); MCHC 32.7 g/dl (32.0-35.9); MEAN PLT VOLUME 10.1 fl (7.5-11.1); MONO % 4.6 % (3.8-10.2); NEUT % 42.9 % (42.8-82.8); PLATELET COUNT 261 10^3/uL (134-434); RBC 3.25 M/mm3 (4.00-5.60); RDW 20.2 % (11.9-15.9); WHITE BLOOD COUNT 5.4 K/mm3 (4.0-10.0)
[2021-08-17 08:49] LABS: CALCIUM 8.3 mg/dL (8.5-10.1); MAGNESIUM 2.4 mg/dL (1.8-2.4)
[2021-08-17 08:50] LABS: BLOOD UREA NITROGEN 27.3 mg/dL (7-18)
[2021-08-17 08:53] LABS: CREATININE 1.1 mg/dL (0.55-1.3)
[2021-08-17] MEDS: TAMSULOSIN HCL 0.4 MG CAP PO SCH (09:52)
[2021-08-17] MEDS: ASPIRIN COATED 81 MG TABLET.EC PO SCH (09:52)
[2021-08-17] MEDS: metoPROLOL SUCCINATE 25 MG TAB.SR.24H (FP) PO SCH (09:53)
[2021-08-17] MEDS: THIAMINE HCL 100 MG TABLET (FP) PO SCH (09:53)
[2021-08-17] MEDS: BICTEGRAV/EMTRICIT/TENOFOV (BIKTARVY) 50-200-25 MG TABLET PO SCH (09:53)
[2021-08-17] MEDS: FERROUS SO4 325 MG TABLET (FP) PO SCH (09:53)
[2021-08-17] MEDS: ENOXAPARIN NA (PORCINE) 30 MG/0.3 ML DISP.SYRIN SQ SCH (09:54)
[2021-08-17] MEDS: MEGESTROL ACETATE 400 MG/10 ML UNIT DOSE CUP PO SCH (09:54)
[2021-08-17] MEDS: SODIUM CHLORIDE 1,000 ML IV SCH ×2 (16:59→19:59)
[2021-08-17] MEDS: ATORVASTATIN CA 10 MG TABLET (FP) PO SCH (21:13)
[2021-08-18] MEDS: SODIUM CHLORIDE 1,000 ML IV SCH (05:28)
[2021-08-18] MEDS: methaDONE HCL 10 MG TABLET PO SCH (06:29)
[2021-08-18] MEDS: LEVOTHYROXINE NA 75 MCG TABLET (FP) PO SCH (06:29)
[2021-08-18] MEDS: THIAMINE HCL 100 MG TABLET (FP) PO SCH (09:48)
[2021-08-18] MEDS: FERROUS SO4 325 MG TABLET (FP) PO SCH (09:48)
[2021-08-18] MEDS: ASPIRIN COATED 81 MG TABLET.EC PO SCH (09:48)
[2021-08-18] MEDS: TAMSULOSIN HCL 0.4 MG CAP PO SCH (09:48)
[2021-08-18] MEDS: ENOXAPARIN NA (PORCINE) 30 MG/0.3 ML DISP.SYRIN SQ SCH (09:48)
[2021-08-18] MEDS: BICTEGRAV/EMTRICIT/TENOFOV (BIKTARVY) 50-200-25 MG TABLET PO SCH (09:49)
[2021-08-18 09:55] LABS: HEMATOCRIT 28.1 % (35.4-49); HEMOGLOBIN 9.2 GM/dL (11.7-16.9); MCH 27.9 pg (25.7-33.7); MCHC 32.9 g/dl (32.0-35.9); MEAN CELL VOLUME 84.8 fl (80-96); MEAN PLT VOLUME 9.6 fl (7.5-11.1); PLATELET COUNT 269 10^3/uL (134-434); RBC 3.31 M/mm3 (4.00-5.60); RDW 20.4 % (11.9-15.9); WHITE BLOOD COUNT 4.7 K/mm3 (4.0-10.0)
[2021-08-18] MEDS: MEGESTROL ACETATE 400 MG/10 ML UNIT DOSE CUP PO SCH (10:05)
[2021-08-18 10:15] LABS: CALCIUM 8.5 mg/dL (8.5-10.1)
[2021-08-18 10:16] LABS: ALBUMIN 2.8 g/dl (3.4-5.0); BLOOD UREA NITROGEN 28.1 mg/dL (7-18); MAGNESIUM 2.4 mg/dL (1.8-2.4)
[2021-08-18 10:19] LABS: CREATININE 1.2 mg/dL (0.55-1.3); PHOSPHOROUS 1.6 mg/dL (2.5-4.9)
[2021-08-18 10:20] LABS: BILIRUBIN,TOTAL 0.4 mg/dL (0.2-1)
[2021-08-18 10:21] LABS: TOT PROT 6.2 g/dl (6.4-8.2)
[2021-08-18] MEDS: metoPROLOL SUCCINATE 25 MG TAB.SR.24H (FP) PO SCH (10:23)
[2021-08-18 13:19] LABS: ANISOCYTOSIS 1+; MACROCYTOSIS 0; OVALOCYTE 2+; TEAR DROP CELLS 1+
[2021-08-18] MEDS ORDERED: BISACODYL 5 MG TABLET.DR (FP) PO ONE (16:00)
[2021-08-18] MEDS ORDERED: PEG 3350/NA SULF BICARB CL/KCL 4000 ML SOLN.RECON PO ONE (17:00)
[2021-08-18] MEDS: ATORVASTATIN CA 10 MG TABLET (FP) PO SCH (21:29)
[2021-08-19] MEDS: methaDONE HCL 10 MG TABLET PO SCH (06:17)
[2021-08-19] MEDS: LEVOTHYROXINE NA 75 MCG TABLET (FP) PO SCH (06:18)
[2021-08-19 09:04] LABS: BASO % 2.1 % (0-2.0); EOS % 10.2 % (0-4.5); HEMATOCRIT 28.4 % (35.4-49); HEMOGLOBIN 9.1 GM/dL (11.7-16.9); LYMPH % 39.4 % (8-40); MCH 27.4 pg (25.7-33.7); MCHC 32.2 g/dl (32.0-35.9); MEAN CELL VOLUME 85.2 fl (80-96); MEAN PLT VOLUME 10.2 fl (7.5-11.1); MONO % 8.2 % (3.8-10.2); NEUT % 40.1 % (42.8-82.8); PLATELET COUNT 292 10^3/uL (134-434); RBC 3.34 M/mm3 (4.00-5.60); WHITE BLOOD COUNT 5.1 K/mm3 (4.0-10.0)
[2021-08-19 09:11] LABS: INR 1.21 (0.83-1.09); PROTHROMBIN TIME (PATIENT) 13.9 SEC (9.7-13.0)
[2021-08-19 10:04] LABS: CALCIUM 8.7 mg/dL (8.5-10.1)
[2021-08-19 10:05] LABS: ALBUMIN 3.1 g/dl (3.4-5.0); BLOOD UREA NITROGEN 27.4 mg/dL (7-18); MAGNESIUM 2.3 mg/dL (1.8-2.4)
[2021-08-19 10:07] LABS: BILIRUBIN,DIRECT 0.1 mg/dL (0.0-0.2)
[2021-08-19 10:08] LABS: CREATININE 1.2 mg/dL (0.55-1.3); PHOSPHOROUS 1.6 mg/dL (2.5-4.9)
[2021-08-19 10:09] LABS: BILIRUBIN,TOTAL 0.3 mg/dL (0.2-1); TOT PROT 6.3 g/dl (6.4-8.2)
[2021-08-19] MEDS: ASPIRIN COATED 81 MG TABLET.EC PO SCH (10:37)
[2021-08-19] MEDS: FERROUS SO4 325 MG TABLET (FP) PO SCH (10:38)
[2021-08-19] MEDS: THIAMINE HCL 100 MG TABLET (FP) PO SCH (10:42)
[2021-08-19] MEDS: metoPROLOL SUCCINATE 25 MG TAB.SR.24H (FP) PO SCH (10:42)
[2021-08-19] MEDS: BICTEGRAV/EMTRICIT/TENOFOV (BIKTARVY) 50-200-25 MG TABLET PO SCH (10:43)
[2021-08-19] MEDS: MEGESTROL ACETATE 400 MG/10 ML UNIT DOSE CUP PO SCH (10:43)
[2021-08-19] MEDS: TAMSULOSIN HCL 0.4 MG CAP PO SCH (10:43)
[2021-08-19] MEDS ORDERED: cefTRIAXone SODIUM 1 GM VIAL ONE (13:29)
[2021-08-19] MEDS ORDERED: cefTRIAXone SODIUM 1 GM VIAL IVPB ONE (13:36)
[2021-08-19] MEDS ORDERED: IOHEXOL 300 MG/ML INFUS..BTL IJ ONE (14:00)
[2021-08-19] MEDS ORDERED: LACTATED RINGERS SOLUTION 1,000 ML/1,000 ML INFUS.BAG IV SCH ×2 (15:30→23:00)
[2021-08-19] MEDS ORDERED: PIPERACILLIN/TAZOBACTAM 3.375 GM VIAL IVPB ONE (17:09)
[2021-08-19] MEDS ORDERED: DEXTROSE 5%-WATER - 50 ML IVPB ONE (17:09)
[2021-08-19] MEDS: PIPERACILLIN/TAZOB 3.375 GM 3.375 GM in DEXTROSE 5%-WATER - 50 ML IVPB SCH (17:39)
[2021-08-19] MEDS ORDERED: PIPERACILLIN/TAZOB 3.375 GM 3.375 GM in DEXTROSE 5%-WATER - 50 ML IVPB SCH (18:00)
[2021-08-19] MEDS: ATORVASTATIN CA 10 MG TABLET (FP) PO SCH (22:58)
[2021-08-19] MEDS: URSODIOL 300 MG CAPSULE PO SCH (22:58)
[2021-08-20] MEDS ORDERED: PIPERACILLIN/TAZOBACTAM 3.375 GM VIAL IVPB ONE ×3 (01:35→10:00)
[2021-08-20] MEDS ORDERED: DEXTROSE 5%-WATER - 50 ML IVPB ONE ×3 (01:35→10:01)
[2021-08-20] MEDS: PIPERACILLIN/TAZOB 3.375 GM 3.375 GM in DEXTROSE 5%-WATER - 50 ML IVPB SCH ×2 (02:13→10:06)
[2021-08-20] MEDS: methaDONE HCL 10 MG TABLET PO SCH (06:04)
[2021-08-20] MEDS: LEVOTHYROXINE NA 75 MCG TABLET (FP) PO SCH (06:06)
[2021-08-20] MEDS ORDERED: FAMOTIDINE 20 MG TABLET PO ONE (09:55)
[2021-08-20] MEDS: metoPROLOL SUCCINATE 25 MG TAB.SR.24H (FP) PO SCH (10:04)
[2021-08-20] MEDS: ASPIRIN COATED 81 MG TABLET.EC PO SCH (10:05)
[2021-08-20] MEDS: BICTEGRAV/EMTRICIT/TENOFOV (BIKTARVY) 50-200-25 MG TABLET PO SCH (10:05)
[2021-08-20] MEDS: THIAMINE HCL 100 MG TABLET (FP) PO SCH (10:05)
[2021-08-20] MEDS: URSODIOL 300 MG CAPSULE PO SCH ×2 (10:05→22:12)
[2021-08-20] MEDS: FERROUS SO4 325 MG TABLET (FP) PO SCH (10:05)
[2021-08-20] MEDS: MEGESTROL ACETATE 400 MG/10 ML UNIT DOSE CUP PO SCH (10:05)
[2021-08-20] MEDS: TAMSULOSIN HCL 0.4 MG CAP PO SCH (10:05)
[2021-08-20] MEDS ORDERED: SODIUM PHOSPHATE - 30 MM in SODIUM CHLORIDE 250 ML IVPB ONE (14:08)
[2021-08-20] MEDS ORDERED: SODIUM PHOSPHATE - 30 MM in SODIUM CHLORIDE 500 ML IVPB ONE (14:30)
[2021-08-20] MEDS: LACTATED RINGERS SOLUTION 1,000 ML/1,000 ML INFUS.BAG IV SCH ×2 (14:45→23:35)
[2021-08-20 16:11] LABS: SARS-CoV-2 NAA Not Detected (Not Detected)
[2021-08-20] MEDS: ATORVASTATIN CA 10 MG TABLET (FP) PO SCH (22:12)
[2021-08-21] MEDS: LEVOTHYROXINE NA 75 MCG TABLET (FP) PO SCH (06:08)
[2021-08-21] MEDS ORDERED: ACETAMINOPHEN 1000 MG/100 ML BAG IVPB ONE (07:15)
[2021-08-21 08:28] LABS: BASO % 1.2 % (0-2.0); EOS % 16.9 % (0-4.5); HEMOGLOBIN 8.7 GM/dL (11.7-16.9); LYMPH % 20.7 % (8-40); MCHC 32.3 g/dl (32.0-35.9); MEAN CELL VOLUME 86.5 fl (80-96); MEAN PLT VOLUME 9.9 fl (7.5-11.1); MONO % 7.3 % (3.8-10.2); NEUT % 53.9 % (42.8-82.8); PLATELET COUNT 273 10^3/uL (134-434); RBC 3.13 M/mm3 (4.00-5.60); RDW 20.6 % (11.9-15.9); WHITE BLOOD COUNT 8.3 K/mm3 (4.0-10.0)
[2021-08-21 08:46] LABS: ALBUMIN 2.9 g/dl (3.4-5.0)
[2021-08-21 08:47] LABS: BLOOD UREA NITROGEN 22.9 mg/dL (7-18); CALCIUM 8.2 mg/dL (8.5-10.1); MAGNESIUM 2.1 mg/dL (1.8-2.4)
[2021-08-21 08:50] LABS: BILIRUBIN,TOTAL 0.3 mg/dL (0.2-1); CREATININE 1.3 mg/dL (0.55-1.3); TOT PROT 5.9 g/dl (6.4-8.2)
[2021-08-21] MEDS: TAMSULOSIN HCL 0.4 MG CAP PO SCH (09:46)
[2021-08-21] MEDS: URSODIOL 300 MG CAPSULE PO SCH ×2 (09:46→22:21)
[2021-08-21] MEDS: MEGESTROL ACETATE 400 MG/10 ML UNIT DOSE CUP PO SCH (09:46)
[2021-08-21] MEDS: FERROUS SO4 325 MG TABLET (FP) PO SCH (09:46)
[2021-08-21] MEDS: THIAMINE HCL 100 MG TABLET (FP) PO SCH (09:46)
[2021-08-21] MEDS: ASPIRIN COATED 81 MG TABLET.EC PO SCH (09:47)
[2021-08-21] MEDS: BICTEGRAV/EMTRICIT/TENOFOV (BIKTARVY) 50-200-25 MG TABLET PO SCH (09:47)
[2021-08-21] MEDS: metoPROLOL SUCCINATE 25 MG TAB.SR.24H (FP) PO SCH (09:49)
[2021-08-21 10:22] LABS: ANISOCYTOSIS 2+; MACROCYTOSIS 2+; OVALOCYTE 1+
[2021-08-21] MEDS: ATORVASTATIN CA 10 MG TABLET (FP) PO SCH (22:21)
[2021-08-22] MEDS: LEVOTHYROXINE NA 75 MCG TABLET (FP) PO SCH (06:41)
[2021-08-22] MEDS: metoPROLOL SUCCINATE 25 MG TAB.SR.24H (FP) PO SCH (09:47)
[2021-08-22] MEDS: URSODIOL 300 MG CAPSULE PO SCH ×2 (09:47→21:55)
[2021-08-22] MEDS: FERROUS SO4 325 MG TABLET (FP) PO SCH (09:48)
[2021-08-22] MEDS: MEGESTROL ACETATE 400 MG/10 ML UNIT DOSE CUP PO SCH (09:48)
[2021-08-22] MEDS: THIAMINE HCL 100 MG TABLET (FP) PO SCH (09:48)
[2021-08-22] MEDS: TAMSULOSIN HCL 0.4 MG CAP PO SCH (09:48)
[2021-08-22] MEDS: ASPIRIN COATED 81 MG TABLET.EC PO SCH (09:48)
[2021-08-22] MEDS: BICTEGRAV/EMTRICIT/TENOFOV (BIKTARVY) 50-200-25 MG TABLET PO SCH (09:48)
[2021-08-22 12:29] LABS: EOS % 8.4 % (0-4.5); HEMATOCRIT 30.9 % (35.4-49); HEMOGLOBIN 10.2 GM/dL (11.7-16.9); LYMPH % 18.1 % (8-40); MCH 28.6 pg (25.7-33.7); MCHC 33.1 g/dl (32.0-35.9); MEAN CELL VOLUME 86.5 fl (80-96); MEAN PLT VOLUME 9.5 fl (7.5-11.1); MONO % 11.6 % (3.8-10.2); NEUT % 60.9 % (42.8-82.8); PLATELET COUNT 313 10^3/uL (134-434); RBC 3.58 M/mm3 (4.00-5.60); RDW 20.9 % (11.9-15.9); WHITE BLOOD COUNT 10.6 K/mm3 (4.0-10.0)
[2021-08-22 12:49] LABS: BLOOD UREA NITROGEN 27.9 mg/dL (7-18); CALCIUM 8.9 mg/dL (8.5-10.1)
[2021-08-22 12:52] LABS: CREATININE 1.3 mg/dL (0.55-1.3)
[2021-08-22 12:53] LABS: TOT PROT 7.1 g/dl (6.4-8.2)
[2021-08-22 12:54] LABS: BILIRUBIN,TOTAL 0.4 mg/dL (0.2-1)
[2021-08-22 13:04] LABS: ALBUMIN 3.5 g/dl (3.4-5.0)
[2021-08-22] MEDS: LACTATED RINGERS SOLUTION 1,000 ML/1,000 ML INFUS.BAG IV SCH (16:38)
[2021-08-22] MEDS: ATORVASTATIN CA 10 MG TABLET (FP) PO SCH (21:55)
[2021-08-23] MEDS: LEVOTHYROXINE NA 75 MCG TABLET (FP) PO SCH (06:02)
[2021-08-23 08:54] LABS: BASO % 0.9 % (0-2.0); EOS % 6.9 % (0-4.5); HEMATOCRIT 29.8 % (35.4-49); HEMOGLOBIN 9.7 GM/dL (11.7-16.9); MCH 28.2 pg (25.7-33.7); MCHC 32.6 g/dl (32.0-35.9); MEAN CELL VOLUME 86.5 fl (80-96); MEAN PLT VOLUME 9.3 fl (7.5-11.1); MONO % 3.4 % (3.8-10.2); NEUT % 65.8 % (42.8-82.8); PLATELET COUNT 329 10^3/uL (134-434); RBC 3.44 M/mm3 (4.00-5.60); RDW 20.2 % (11.9-15.9); WHITE BLOOD COUNT 7.5 K/mm3 (4.0-10.0)
[2021-08-23 09:20] LABS: CALCIUM 9.1 mg/dL (8.5-10.1)
[2021-08-23 09:21] LABS: CREATININE 1.3 mg/dL (0.55-1.3); MAGNESIUM 2.5 mg/dL (1.8-2.4)
[2021-08-23 09:23] LABS: BLOOD UREA NITROGEN 30.1 mg/dL (7-18); PHOSPHOROUS 2.5 mg/dL (2.5-4.9)
[2021-08-23] MEDS: THIAMINE HCL 100 MG TABLET (FP) PO SCH (09:23)
[2021-08-23] MEDS: TAMSULOSIN HCL 0.4 MG CAP PO SCH (09:23)
[2021-08-23] MEDS: FERROUS SO4 325 MG TABLET (FP) PO SCH (09:23)
[2021-08-23] MEDS: BICTEGRAV/EMTRICIT/TENOFOV (BIKTARVY) 50-200-25 MG TABLET PO SCH (09:23)
[2021-08-23] MEDS: MEGESTROL ACETATE 400 MG/10 ML UNIT DOSE CUP PO SCH (09:24)
[2021-08-23] MEDS: ASPIRIN COATED 81 MG TABLET.EC PO SCH (09:24)
[2021-08-23] MEDS: URSODIOL 300 MG CAPSULE PO SCH ×2 (09:25→22:57)
[2021-08-23 12:59] VITALS: BMI 17.5
[2021-08-23] MEDS: ATORVASTATIN CA 10 MG TABLET (FP) PO SCH (22:57)
[2021-08-23] MEDS: LACTATED RINGERS SOLUTION 1,000 ML/1,000 ML INFUS.BAG IV SCH (22:59)
[2021-08-24] MEDS: LEVOTHYROXINE NA 75 MCG TABLET (FP) PO SCH (06:53)
[2021-08-24] MEDS: metoPROLOL SUCCINATE 25 MG TAB.SR.24H (FP) PO SCH (10:01)
[2021-08-24] MEDS: THIAMINE HCL 100 MG TABLET (FP) PO SCH (10:01)
[2021-08-24] MEDS: MEGESTROL ACETATE 400 MG/10 ML UNIT DOSE CUP PO SCH (10:01)
[2021-08-24] MEDS: URSODIOL 300 MG CAPSULE PO SCH (10:02)
[2021-08-24] MEDS: FERROUS SO4 325 MG TABLET (FP) PO SCH (10:02)
[2021-08-24] MEDS: TAMSULOSIN HCL 0.4 MG CAP PO SCH (10:02)
[2021-08-24] MEDS: BICTEGRAV/EMTRICIT/TENOFOV (BIKTARVY) 50-200-25 MG TABLET PO SCH (10:02)
[2021-08-24] MEDS: ASPIRIN COATED 81 MG TABLET.EC PO SCH (10:03)
[2021-08-24 11:03] LABS: BASO % 1.2 % (0-2.0); EOS % 4.1 % (0-4.5); HEMOGLOBIN 9.8 GM/dL (11.7-16.9); LYMPH % 24.5 % (8-40); MCHC 32.6 g/dl (32.0-35.9); MEAN CELL VOLUME 85.9 fl (80-96); MEAN PLT VOLUME 9.8 fl (7.5-11.1); MONO % 9.8 % (3.8-10.2); NEUT % 60.4 % (42.8-82.8); PLATELET COUNT 359 10^3/uL (134-434); RBC 3.49 M/mm3 (4.00-5.60); RDW 20.1 % (11.9-15.9); WHITE BLOOD COUNT 8.1 K/mm3 (4.0-10.0)
[2021-08-24 11:38] LABS: BLOOD UREA NITROGEN 32.9 mg/dL (7-18)
[2021-08-24 11:41] LABS: CREATININE 1.1 mg/dL (0.55-1.3); PHOSPHOROUS 1.8 mg/dL (2.5-4.9)
[2021-08-24 11:42] LABS: MAGNESIUM 2.5 mg/dL (1.8-2.4)
[2021-08-24 12:08] LABS: SARS-CoV-2 NAA Not Detected (Not Detected)
[2021-08-24 13:58] VITALS: BP 116/56; PULSE 81; TEMP 98.2
== END 2021-08-24 17:45 | disposition short-term general hospital (02) ==
LOC: JER 09:02 → INTOOBSV 12:57 → UNDOADMOB 12:57 → JERBED 12:57 → J7W 14:51 → OBSVTOIN 08-12 08:36
PROVIDERS: ADMIT Internal Medicine; ATTEND Internal Medicine
PROC: BF12YZZ Fluoroscopy of Gallbladder using Other Contrast (ICD-10-PCS; principal; 2021-08-15)
PROC: 0FC98ZZ Extirpation of Matter from Common Bile Duct, Via Natural or Artificial Opening Endoscopic (ICD-10-PCS; 2021-08-19)
PROC: 0F798DZ Dilation of Common Bile Duct with Intraluminal Device, Via Natural or Artificial Opening Endoscopic (ICD-10-PCS; 2021-08-19)
DX: K80.45 Calculus of bile duct with chronic cholecystitis with obstruction (principal); I25.10 Atherosclerotic heart disease of native coronary artery without angina pectoris; Z21 Asymptomatic human immunodeficiency virus [HIV] infection status; E78.5 Hyperlipidemia, unspecified; R62.7 Adult failure to thrive; F17.210 Nicotine dependence, cigarettes, uncomplicated; E03.9 Hypothyroidism, unspecified; F11.20 Opioid dependence, uncomplicated; E86.0 Dehydration; I13.0 Hypertensive heart and chronic kidney disease with heart failure and stage 1 through stage 4 chronic kidney disease, or unspecified chronic kidney disease; N18.9 Chronic kidney disease, unspecified; I50.22 Chronic systolic (congestive) heart failure; N40.0 Benign prostatic hyperplasia without lower urinary tract symptoms; N17.9 Acute kidney failure, unspecified; B19.20 Unspecified viral hepatitis C without hepatic coma; K56.7 Ileus, unspecified; R64 Cachexia; Z68.1 Body mass index [BMI] 19.9 or less, adult; E43 Unspecified severe protein-calorie malnutrition; Z95.2 Presence of prosthetic heart valve; Z86.718 Personal history of other venous thrombosis and embolism
CPT/HCPCS: 36415; 71045-TC-FY; 74177-TC; 74181-TC; 74301-FY; 76000-TC-FY; 80048; 80053; 80076; 82105; 82150; 82378; 82553; 82784; 82803; 82962; 83516; 83605; 83690; 83735; 84100; 84439; 84443; 84484; 85025; 85610; 85730; 86140; 86301; 87040; 87804; 93005; 93010; 97116-GP; 97162-GP; 99285-25; C9803-CS; G0378; U0003; U0005

== ENCOUNTER 2022-01-11 09:25 | Emergency (ER) | payer OTHER ==
[2022-01-11 09:40] VITALS: BMI 23.3
[2022-01-11] MEDS ORDERED: ACETAMINOPHEN 1000 MG/100 ML BAG IVPB ONE (10:13)
[2022-01-11] MEDS ORDERED: SODIUM CHLORIDE 0.9% 500 ML INFUS.BAG IV ONE (10:13)
[2022-01-11] MEDS ORDERED: ONDANSETRON 4 MG/2 ML VIAL IVPB ONE (10:13)
[2022-01-11] MEDS ORDERED: ACETAMINOPHEN INJECTION 100 ML IVPB ONE (10:25)
[2022-01-11] MEDS ORDERED: ONDANSETRON 4 MG/2 ML VIAL ONE (10:25)
[2022-01-11 10:33] LABS: BASO % 0.6 % (0-2.0); EOS % 0.3 % (0-4.5); HEMATOCRIT 38.3 % (35.4-49); HEMOGLOBIN 12.2 GM/dL (11.7-16.9); LYMPH % 8.6 % (8-40); MCH 27.5 pg (25.7-33.7); MCHC 31.8 g/dl (32.0-35.9); MEAN CELL VOLUME 86.3 fl (80-96); NEUT % 86.5 % (42.8-82.8); PLATELET COUNT 349 10^3/uL (134-434); RBC 4.44 M/mm3 (4.00-5.60); RDW 19.1 % (11.9-15.9); WHITE BLOOD COUNT 19.5 K/mm3 (4.0-10.0)
[2022-01-11] MEDS ORDERED: PIPERACILLIN/TAZOB 3.375 GM 3.375 GM in DEXTROSE 5%-WATER - 50 ML IVPB ONE (10:43)
[2022-01-11 10:54] LABS: CALCIUM 8.8 mg/dL (8.5-10.1)
[2022-01-11 10:55] LABS: ALBUMIN 3.1 g/dl (3.4-5.0); BLOOD UREA NITROGEN 20.9 mg/dL (7-18)
[2022-01-11 10:57] LABS: CREATININE 1.6 mg/dL (0.55-1.3)
[2022-01-11 10:59] LABS: TOT PROT 8.5 g/dl (6.4-8.2)
[2022-01-11] MEDS ORDERED: PIPERACILLIN/TAZOB 3.375 GM 3.375 GM/50 ML BAG IVPB ONE (11:32)
[2022-01-11 11:46] LABS: ALBUMIN 2.6 g/dl (3.4-5.0); BLOOD UREA NITROGEN 20.4 mg/dL (7-18)
[2022-01-11 11:49] LABS: CREATININE 1.5 mg/dL (0.55-1.3)
[2022-01-11 11:51] LABS: BILIRUBIN,TOTAL 0.7 mg/dL (0.2-1); TOT PROT 6.8 g/dl (6.4-8.2)
[2022-01-11] MEDS ORDERED: CALCIUM GLUCONATE 10% - 1,000 MG/10 ML VIAL IVPB ONE (11:58)
[2022-01-11] MEDS ORDERED: CALCIUM GLUC IN NACL, ISO-OSM 2 GM/100 ML BAG IVPB ONE (12:30)
[2022-01-11] MEDS ORDERED: KCL 10 MEQ IVPB 20 MEQ/200 ML INFUS.BAG IVPB ONE (12:30)
[2022-01-11] MEDS: KCL 10 MEQ IVPB 10 MEQ/100 ML INFUS.BAG IVPB SCH ×2 (13:39→14:45)
[2022-01-11 14:48] VITALS: RESP 20; TEMP 97.9
[2022-01-11 17:30] VITALS: BP 108/51; PULSE 94
== END 2022-01-11 17:30 | disposition short-term general hospital (02) ==
LOC: JER 09:25
PROC: 3E03329 Introduction of Other Anti-infective into Peripheral Vein, Percutaneous Approach (ICD-10-PCS; principal; 2022-01-11)
PROC: 3E0337Z Introduction of Electrolytic and Water Balance Substance into Peripheral Vein, Percutaneous Approach (ICD-10-PCS; 2022-01-11)
PROC: 3E0337Z Introduction of Electrolytic and Water Balance Substance into Peripheral Vein, Percutaneous Approach (ICD-10-PCS; 2022-01-11)
DX: R10.11 Right upper quadrant pain (principal)
CPT/HCPCS: 36415; 71045-TC-FY; 76705-TC; 80053; 83690; 84484; 85025; 86850; 86900; 86901; 87040; 93005; 93010; 99284-25; C9803-CS; U0003; U0005

== ENCOUNTER 2022-01-30 09:06 | Inpatient (IN) | payer OTHER ==
[2022-01-30 10:27] VITALS: BMI 17.7
[2022-01-30] MEDS ORDERED: MAGNESIUM CITRATE 300 ML BOTTLE PO PRN (14:11)
[2022-01-30] MEDS ORDERED: BISMUTH SUBSALICYLATE 262 MG/15 ML BTL PO PRN (14:11)
[2022-01-30] MEDS ORDERED: METHOCARBAMOL 500 MG TABLET PO PRN (14:11)
[2022-01-30] MEDS ORDERED: LOPERAMIDE HCL 2 MG CAPSULE PO PRN (14:11)
[2022-01-30] MEDS ORDERED: MAG HYDROX/AL HYDROX/SIMETH -MYLANTA- ORAL SUSPENSION PO PRN (14:11)
[2022-01-30] MEDS ORDERED: ONDANSETRON *ODT* 4 MG TABLET SL PRN (14:11)
[2022-01-30] MEDS ORDERED: cloNIDine HCL 0.1 MG TABLET PO ONE (14:11)
[2022-01-30] MEDS ORDERED: NICOTINE 10 MG CARTRIDGE (INHALER) IH PRN (14:11)
[2022-01-30] MEDS ORDERED: ACETAMINOPHEN 325 MG TABLET (FP) PO PRN ×2 (14:11)
[2022-01-30] MEDS ORDERED: BUPRENORPHINE HCL 150 MCG, BUPRENORPHINE HCL 75 MCG BC ONE (14:11)
[2022-01-30] MEDS ORDERED: IBUPROFEN 600 MG TABLET (FP) PO PRN (14:11)
[2022-01-30] MEDS ORDERED: BUPRENORPHINE HCL 150 MCG, BUPRENORPHINE HCL 75 MCG BC PRN (14:11)
[2022-01-30] MEDS ORDERED: DICYCLOMINE HCL 10 MG CAPSULE PO PRN (14:11)
[2022-01-30] MEDS ORDERED: NALOXONE HCL (KLOXXADO) 8 MG SPRAY NS PRN (14:11)
[2022-01-30] MEDS ORDERED: BENZOCAINE/MENTHOL (CHLORASEPTIC ) LOZENGE MM PRN (14:11)
[2022-01-30] MEDS ORDERED: IBUPROFEN 400 MG TABLET (FP) PO PRN (14:11)
[2022-01-30] MEDS ORDERED: MAGNESIUM HYDROX 2400MG/30ML ORAL SUSPENSION 30 ML CUP PO PRN (14:11)
[2022-01-30] MEDS ORDERED: diazePAM 5 MG TABLET PO PRN (14:11)
[2022-01-30] MEDS ORDERED: cloNIDine HCL 0.1 MG TABLET PO PRN (18:11)
[2022-01-30] MEDS: PRENATAL VITAMINS W/ FOLIC ACID TABLET (FP) PO SCH (18:47)
[2022-01-30] MEDS: hydrOXYzine PAMOATE 25 MG CAPSULE (FP) PO SCH ×2 (18:48→23:50)
[2022-01-30] MEDS: MELATONIN 5 MG TABLETS PO SCH (23:28)
[2022-01-30] MEDS: ATORVASTATIN CA 10 MG TABLET (FP) PO SCH (23:28)
[2022-01-30] MEDS: THIAMINE HCL 100 MG TABLET (FP) PO SCH (23:29)
[2022-01-30] MEDS: SENNOSIDES 8.6MG TABLET (FP) PO SCH (23:59)
[2022-01-31] MEDS ORDERED: BUPRENORPHINE HCL 150 MCG, BUPRENORPHINE HCL 75 MCG BC PRN
[2022-01-31] MEDS: URSODIOL 300 MG CAPSULE PO SCH ×3 (00:06→22:26)
[2022-01-31] MEDS: hydrOXYzine PAMOATE 25 MG CAPSULE (FP) PO SCH ×2 (06:05→10:19)
[2022-01-31] MEDS: TAMSULOSIN HCL 0.4 MG CAP PO SCH (07:45)
[2022-01-31] MEDS: LEVOTHYROXINE NA 25 MCG TABLET (FP) PO SCH (07:45)
[2022-01-31] MEDS: BUPRENORPHINE HCL 150 MCG, BUPRENORPHINE HCL 75 MCG BC SCH ×2 (07:45→18:01)
[2022-01-31] MEDS ORDERED: BICTEGRAV/EMTRICIT/TENOFOV (BIKTARVY) 50-200-25 MG TABLET PO SCH (10:00)
[2022-01-31] MEDS ORDERED: metoPROLOL SUCCINATE 25 MG TAB.SR.24H (FP) PO SCH (10:00)
[2022-01-31] MEDS: MEGESTROL ACETATE 400 MG/10 ML UNIT DOSE CUP PO SCH (10:19)
[2022-01-31] MEDS: ASPIRIN COATED 81 MG TABLET.EC PO SCH (10:19)
[2022-01-31] MEDS: FERROUS SO4 325 MG TABLET (FP) PO SCH (10:19)
[2022-01-31] MEDS: NICOTINE 14 MG/24 HOURS TOPICAL PATCH TD SCH (10:20)
[2022-01-31] MEDS: PRENATAL VITAMINS W/ FOLIC ACID TABLET (FP) PO SCH (10:20)
[2022-01-31 12:23] LABS: HEMATOCRIT 35.1 % (35.4-49); HEMOGLOBIN 11.5 GM/dL (11.7-16.9); MCHC 32.8 g/dl (32.0-35.9); MEAN CELL VOLUME 88.3 fl (80-96); PLATELET COUNT 202 10^3/uL (134-434); RBC 3.98 M/mm3 (4.00-5.60); RDW 18.9 % (11.9-15.9); WHITE BLOOD COUNT 6.8 K/mm3 (4.0-10.0)
[2022-01-31 13:01] LABS: CALCIUM 8.5 mg/dL (8.5-10.1)
[2022-01-31 13:02] LABS: BLOOD UREA NITROGEN 40.5 mg/dL (7-18)
[2022-01-31 13:03] LABS: CREATININE 1.9 mg/dL (0.55-1.3)
[2022-01-31 13:05] LABS: BILIRUBIN,TOTAL 0.4 mg/dL (0.2-1); TOT PROT 7.7 g/dl (6.4-8.2)
[2022-01-31] MEDS: CYPROHEPTADINE HCL 4 MG TABLET PO SCH (17:07)
[2022-01-31] MEDS ORDERED: SODIUM POLYSTYRENE SULFONATE 15 GM/60 ML BOTTLE PO ONE (17:47)
[2022-01-31] MEDS: THIAMINE HCL 100 MG TABLET (FP) PO SCH (22:27)
[2022-01-31] MEDS: ATORVASTATIN CA 10 MG TABLET (FP) PO SCH (22:27)
[2022-01-31] MEDS: SENNOSIDES 8.6MG TABLET (FP) PO SCH (22:27)
[2022-01-31] MEDS: MELATONIN 5 MG TABLETS PO SCH (22:27)
[2022-02-01] MEDS: MEGESTROL ACETATE 400 MG/10 ML UNIT DOSE CUP PO SCH (06:37)
[2022-02-01] MEDS: LEVOTHYROXINE NA 25 MCG TABLET (FP) PO SCH (06:38)
[2022-02-01] MEDS: CYPROHEPTADINE HCL 4 MG TABLET PO SCH ×3 (06:38→17:01)
[2022-02-01] MEDS: BUPRENORPHINE HCL 450 MCG FILM BC SCH ×2 (06:40→18:58)
[2022-02-01] MEDS: BICTEGRAV/EMTRICIT/TENOFOV (BIKTARVY) 50-200-25 MG TABLET PO SCH (07:06)
[2022-02-01] MEDS: PRENATAL VITAMINS W/ FOLIC ACID TABLET (FP) PO SCH (09:55)
[2022-02-01] MEDS: ASPIRIN COATED 81 MG TABLET.EC PO SCH (09:56)
[2022-02-01] MEDS: URSODIOL 300 MG CAPSULE PO SCH ×2 (09:56→22:54)
[2022-02-01] MEDS: FERROUS SO4 325 MG TABLET (FP) PO SCH (09:56)
[2022-02-01] MEDS: TAMSULOSIN HCL 0.4 MG CAP PO SCH (09:56)
[2022-02-01] MEDS: NICOTINE 14 MG/24 HOURS TOPICAL PATCH TD SCH (09:57)
[2022-02-01 10:35] LABS: BLOOD UREA NITROGEN 32.5 mg/dL (7-18); CALCIUM 8.6 mg/dL (8.5-10.1)
[2022-02-01 10:36] LABS: ALBUMIN 3.1 g/dl (3.4-5.0)
[2022-02-01 10:39] LABS: CREATININE 1.6 mg/dL (0.55-1.3); PHOSPHOROUS 2.3 mg/dL (2.5-4.9)
[2022-02-01] MEDS: ATORVASTATIN CA 10 MG TABLET (FP) PO SCH (22:54)
[2022-02-01] MEDS: SENNOSIDES 8.6MG TABLET (FP) PO SCH (22:54)
[2022-02-01] MEDS: THIAMINE HCL 100 MG TABLET (FP) PO SCH (22:54)
[2022-02-01] MEDS: MELATONIN 5 MG TABLETS PO SCH (22:54)
[2022-02-02] MEDS: LEVOTHYROXINE NA 25 MCG TABLET (FP) PO SCH (06:13)
[2022-02-02] MEDS: CYPROHEPTADINE HCL 4 MG TABLET PO SCH ×3 (06:13→17:28)
[2022-02-02] MEDS: BUPRENORPHINE/NALOXONE 4 MG/1 MG FILM PACKET SL SCH ×2 (06:15→19:22)
[2022-02-02] MEDS: TAMSULOSIN HCL 0.4 MG CAP PO SCH (07:45)
[2022-02-02] MEDS: BICTEGRAV/EMTRICIT/TENOFOV (BIKTARVY) 50-200-25 MG TABLET PO SCH (07:46)
[2022-02-02] MEDS: MEGESTROL ACETATE 400 MG/10 ML UNIT DOSE CUP PO SCH (07:46)
[2022-02-02] MEDS: PRENATAL VITAMINS W/ FOLIC ACID TABLET (FP) PO SCH (10:42)
[2022-02-02] MEDS: ASPIRIN COATED 81 MG TABLET.EC PO SCH (10:43)
[2022-02-02] MEDS: FERROUS SO4 325 MG TABLET (FP) PO SCH (10:43)
[2022-02-02] MEDS: URSODIOL 300 MG CAPSULE PO SCH ×2 (10:43→23:20)
[2022-02-02] MEDS: NICOTINE 14 MG/24 HOURS TOPICAL PATCH TD SCH (10:43)
[2022-02-02 16:47] VITALS: BP 131/57; PULSE 83; RESP 17; TEMP 97.5
[2022-02-02] MEDS: THIAMINE HCL 100 MG TABLET (FP) PO SCH (23:17)
[2022-02-02] MEDS: ATORVASTATIN CA 10 MG TABLET (FP) PO SCH (23:18)
[2022-02-02] MEDS: MELATONIN 5 MG TABLETS PO SCH (23:18)
[2022-02-02] MEDS: SENNOSIDES 8.6MG TABLET (FP) PO SCH (23:19)
[2022-02-03] MEDS ORDERED: BUPRENORPHINE/NALOXONE 8 MG/2 MG FILM PACKET SL ONE ×2 (06:00)
[2022-02-03] MEDS: MEGESTROL ACETATE 400 MG/10 ML UNIT DOSE CUP PO SCH (06:13)
[2022-02-03] MEDS: CYPROHEPTADINE HCL 4 MG TABLET PO SCH (06:14)
[2022-02-03] MEDS: LEVOTHYROXINE NA 25 MCG TABLET (FP) PO SCH (06:14)
== END 2022-02-02 08:00 | disposition short-term general hospital (02) | DRG 773 ==
LOC: YASAS 09:06 → Y3N 15:08
PROVIDERS: ADMIT Allergy & Immunology; ATTEND Surgery
PROC: HZ2ZZZZ Detoxification Services for Substance Abuse Treatment (ICD-10-PCS; principal; 2022-01-30)
DX: F11.23 Opioid dependence with withdrawal (principal); F14.20 Cocaine dependence, uncomplicated; F17.210 Nicotine dependence, cigarettes, uncomplicated; Z21 Asymptomatic human immunodeficiency virus [HIV] infection status; I25.10 Atherosclerotic heart disease of native coronary artery without angina pectoris; I12.9 Hypertensive chronic kidney disease with stage 1 through stage 4 chronic kidney disease, or unspecified chronic kidney disease; N18.9 Chronic kidney disease, unspecified; Z95.1 Presence of aortocoronary bypass graft; Z95.4 Presence of other heart-valve replacement; E78.5 Hyperlipidemia, unspecified; E03.9 Hypothyroidism, unspecified; H40.9 Unspecified glaucoma; H54.61 Unqualified visual loss, right eye, normal vision left eye; M16.0 Bilateral primary osteoarthritis of hip; N40.0 Benign prostatic hyperplasia without lower urinary tract symptoms; R10.11 Right upper quadrant pain; R11.0 Nausea; Z88.2 Allergy status to sulfonamides; Z86.19 Personal history of other infectious and parasitic diseases; Z99.89 Dependence on other enabling machines and devices; Z87.19 Personal history of other diseases of the digestive system
CPT/HCPCS: 36415; 80053; 80069; 82962; 85027; 86780; 93005; 93010; C9803-CS; U0003; U0005

== ENCOUNTER 2022-02-02 19:23 | Inpatient (IN) | payer OTHER ==
[2022-02-02] MEDS ORDERED: KETAMINE HCL 200 MG/20 ML VIAL IVPB ONE (20:15)
[2022-02-02] MEDS ORDERED: cloNIDine HCL 0.1 MG TABLET PO SCH (20:15)
[2022-02-02] MEDS ORDERED: SODIUM CHLORIDE 0.9% 500 ML INFUS.BAG IV ONE (20:16)
[2022-02-02] MEDS ORDERED: KETAMINE HCL 200 MG/20 ML VIAL ONE (20:37)
[2022-02-02] MEDS ORDERED: ONDANSETRON 4 MG/2 ML VIAL IVPUSH ONE (21:21)
[2022-02-02] MEDS ORDERED: ONDANSETRON 4 MG/2 ML VIAL ONE (22:07)
[2022-02-02 22:25] LABS: BASO % 0.6 % (0-2.0); EOS % 12.1 % (0-4.5); HEMATOCRIT 32.1 % (35.4-49); HEMOGLOBIN 10.6 GM/dL (11.7-16.9); LYMPH % 26.5 % (8-40); MCH 28.9 pg (25.7-33.7); MCHC 33.2 g/dl (32.0-35.9); MEAN PLT VOLUME 9.7 fl (7.5-11.1); MONO % 5.3 % (3.8-10.2); NEUT % 55.5 % (42.8-82.8); PLATELET COUNT 228 10^3/uL (134-434); RBC 3.69 M/mm3 (4.00-5.60); RDW 18.7 % (11.9-15.9); WHITE BLOOD COUNT 7.6 K/mm3 (4.0-10.0)
[2022-02-02 22:47] LABS: CALCIUM 8.8 mg/dL (8.5-10.1)
[2022-02-02 22:48] LABS: BLOOD UREA NITROGEN 28.6 mg/dL (7-18); MAGNESIUM 2.1 mg/dL (1.8-2.4)
[2022-02-02 22:50] LABS: BILIRUBIN,DIRECT 0.1 mg/dL (0.0-0.2); CREATININE 1.5 mg/dL (0.55-1.3)
[2022-02-02 22:52] LABS: BILIRUBIN,TOTAL 0.4 mg/dL (0.2-1); TOT PROT 7.4 g/dl (6.4-8.2)
[2022-02-03] MEDS ORDERED: PIPERACILLIN/TAZOB 4.5 GM 4.5 GM in DEXTROSE 5%-WATER 100 ML IVPB ONE (01:20)
[2022-02-03] MEDS ORDERED: PIPERACILLIN/TAZOB 4.5 GM 4.5 GM/100 ML BAG IVPB ONE (01:28)
[2022-02-03] MEDS ORDERED: LINEZOLID 600 MG PREMIX BAG 600 MG/300 ML BAG IVPB SCH ×2 (05:15→07:15)
[2022-02-03] MEDS: LACTATED RINGERS SOLUTION 1,000 ML/1,000 ML INFUS.BAG IV SCH ×2 (08:01→18:13)
[2022-02-03 08:53] LABS: BASO % 0.6 % (0-2.0); EOS % 14.7 % (0-4.5); HEMATOCRIT 39.3 % (35.4-49); HEMOGLOBIN 12.5 GM/dL (11.7-16.9); LYMPH % 29.5 % (8-40); MCH 28.8 pg (25.7-33.7); MCHC 31.9 g/dl (32.0-35.9); MEAN CELL VOLUME 90.3 fl (80-96); MEAN PLT VOLUME 9.4 fl (7.5-11.1); MONO % 4.9 % (3.8-10.2); NEUT % 50.3 % (42.8-82.8); PLATELET COUNT 232 10^3/uL (134-434); RBC 4.35 M/mm3 (4.00-5.60); RETICULOCYTES 1.25 % (0.5-1.5); WHITE BLOOD COUNT 7.2 K/mm3 (4.0-10.0)
[2022-02-03 09:13] LABS: CALCIUM 8.8 mg/dL (8.5-10.1)
[2022-02-03 09:14] LABS: ALBUMIN 3.2 g/dl (3.4-5.0); BLOOD UREA NITROGEN 24.8 mg/dL (7-18); MAGNESIUM 2.2 mg/dL (1.8-2.4)
[2022-02-03 09:16] LABS: CREATININE 1.4 mg/dL (0.55-1.3); PHOSPHOROUS 2.6 mg/dL (2.5-4.9)
[2022-02-03 09:17] LABS: BILIRUBIN,TOTAL 0.6 mg/dL (0.2-1)
[2022-02-03 09:18] LABS: TOT PROT 8.1 g/dl (6.4-8.2)
[2022-02-03] MEDS ORDERED: metoPROLOL SUCCINATE 25 MG TAB.SR.24H (FP) PO ONE (10:57)
[2022-02-03] MEDS ORDERED: PIPERACILLIN/TAZOB 3.375 GM 3.375 GM/50 ML BAG IVPB ONE (10:58)
[2022-02-03] MEDS ORDERED: NICOTINE 14 MG/24 HOURS TOPICAL PATCH TD ONE (10:58)
[2022-02-03] MEDS: PIPERACILLIN/TAZOB 3.375 GM 3.375 GM in DEXTROSE 5%-WATER - 50 ML IVPB SCH ×2 (12:06→19:13)
[2022-02-03] MEDS: metoPROLOL SUCCINATE 25 MG TAB.SR.24H (FP) PO SCH (12:06)
[2022-02-03] MEDS: URSODIOL 300 MG CAPSULE PO SCH ×2 (12:06→22:04)
[2022-02-03] MEDS: NICOTINE 14 MG/24 HOURS TOPICAL PATCH TD SCH (12:07)
[2022-02-03] MEDS: BICTEGRAV/EMTRICIT/TENOFOV (BIKTARVY) 50-200-25 MG TABLET PO SCH (12:07)
[2022-02-03 13:01] LABS: ACTIVATED PTT 31.6 SECONDS (25.2-36.5); INR 1.21 (0.83-1.09)
[2022-02-03 19:54] VITALS: BMI 16.6
[2022-02-04] MEDS: PIPERACILLIN/TAZOB 3.375 GM 3.375 GM in DEXTROSE 5%-WATER - 50 ML IVPB SCH ×4 (04:44→17:23)
[2022-02-04] MEDS: LACTATED RINGERS SOLUTION 1,000 ML/1,000 ML INFUS.BAG IV SCH (06:17)
[2022-02-04] MEDS: LEVOTHYROXINE NA 88 MCG TABLET (FP) PO SCH (06:17)
[2022-02-04] MEDS ORDERED: ATOVAQUONE 750 MG/5 ML (UNIT-DOSE PACKAGING) PO SCH (08:00)
[2022-02-04] MEDS: NICOTINE 14 MG/24 HOURS TOPICAL PATCH TD SCH ×2 (10:54→11:02)
[2022-02-04] MEDS: URSODIOL 300 MG CAPSULE PO SCH ×2 (10:55→22:49)
[2022-02-04] MEDS: TAMSULOSIN HCL 0.4 MG CAP PO SCH (10:55)
[2022-02-04] MEDS: metoPROLOL SUCCINATE 25 MG TAB.SR.24H (FP) PO SCH (10:55)
[2022-02-04] MEDS: BICTEGRAV/EMTRICIT/TENOFOV (BIKTARVY) 50-200-25 MG TABLET PO SCH (10:56)
[2022-02-04] MEDS ORDERED: PERMETHRIN 5% TOPICAL CREAM 60 GM TUBE TP ONE (16:00)
[2022-02-04] MEDS: PERMETHRIN (NIX CREAM SCALP RINSE) 59 ML 1% BOTTLE TP SCH (17:23)
[2022-02-04] MEDS: HEPARIN NA (PORCINE) 5,000 UNITS/ML 1ML VIAL SQ SCH (22:49)
[2022-02-05] MEDS: PIPERACILLIN/TAZOB 3.375 GM 3.375 GM in DEXTROSE 5%-WATER - 50 ML IVPB SCH ×2 (02:32→09:19)
[2022-02-05] MEDS: LEVOTHYROXINE NA 88 MCG TABLET (FP) PO SCH (06:47)
[2022-02-05 08:08] LABS: ALBUMIN 2.7 g/dl (3.4-5.0); BLOOD UREA NITROGEN 35.1 mg/dL (7-18); CALCIUM 8.1 mg/dL (8.5-10.1); MAGNESIUM 2.1 mg/dL (1.8-2.4)
[2022-02-05 08:11] LABS: CREATININE 1.8 mg/dL (0.55-1.3)
[2022-02-05 08:14] LABS: BILIRUBIN,TOTAL 0.4 mg/dL (0.2-1); TOT PROT 6.9 g/dl (6.4-8.2)
[2022-02-05 08:27] LABS: HEMATOCRIT 32.9 % (35.4-49); HEMOGLOBIN 10.5 GM/dL (11.7-16.9); MCH 28.3 pg (25.7-33.7); MCHC 31.9 g/dl (32.0-35.9); MEAN CELL VOLUME 88.8 fl (80-96); PLATELET COUNT 227 10^3/uL (134-434); RBC 3.71 M/mm3 (4.00-5.60); RDW 19.1 % (11.9-15.9); WHITE BLOOD COUNT 7.1 K/mm3 (4.0-10.0)
[2022-02-05] MEDS: TAMSULOSIN HCL 0.4 MG CAP PO SCH (08:37)
[2022-02-05] MEDS: metoPROLOL SUCCINATE 25 MG TAB.SR.24H (FP) PO SCH (09:20)
[2022-02-05] MEDS: URSODIOL 300 MG CAPSULE PO SCH ×2 (09:22→21:13)
[2022-02-05] MEDS: BICTEGRAV/EMTRICIT/TENOFOV (BIKTARVY) 50-200-25 MG TABLET PO SCH (09:23)
[2022-02-05] MEDS: PERMETHRIN (NIX CREAM SCALP RINSE) 59 ML 1% BOTTLE TP SCH (09:23)
[2022-02-05] MEDS: HEPARIN NA (PORCINE) 5,000 UNITS/ML 1ML VIAL SQ SCH ×2 (09:23→21:13)
[2022-02-05] MEDS: NICOTINE 14 MG/24 HOURS TOPICAL PATCH TD SCH (09:23)
[2022-02-05 10:02] LABS: ANISOCYTOSIS 2+; MACROCYTOSIS 0; OVALOCYTE 1+
[2022-02-05] MEDS: SODIUM CHLORIDE 1,000 ML IV SCH (10:30)
[2022-02-05] MEDS: BUPRENORPHINE/NALOXONE 2 MG/0.5 MG FILM PACKET SL SCH ×3 (13:57→21:59)
[2022-02-05] MEDS: AMOX TR/POT CLAV 875MG/125MG TABLETS (FP) PO SCH (17:03)
[2022-02-05 18:10] VITALS: RESP 18
[2022-02-06] MEDS: LEVOTHYROXINE NA 88 MCG TABLET (FP) PO SCH (06:04)
[2022-02-06 09:12] LABS: HEMATOCRIT 33.3 % (35.4-49); HEMOGLOBIN 10.8 GM/dL (11.7-16.9); MCH 28.5 pg (25.7-33.7); MCHC 32.3 g/dl (32.0-35.9); MEAN PLT VOLUME 9.5 fl (7.5-11.1); PLATELET COUNT 240 10^3/uL (134-434); RBC 3.78 M/mm3 (4.00-5.60); RDW 18.8 % (11.9-15.9); WHITE BLOOD COUNT 7.8 K/mm3 (4.0-10.0)
[2022-02-06 09:44] LABS: ALBUMIN 2.9 g/dl (3.4-5.0); BLOOD UREA NITROGEN 27.8 mg/dL (7-18); CALCIUM 8.3 mg/dL (8.5-10.1)
[2022-02-06 09:47] LABS: CREATININE 1.8 mg/dL (0.55-1.3); MAGNESIUM 2.2 mg/dL (1.8-2.4)
[2022-02-06 09:49] LABS: BILIRUBIN,TOTAL 0.5 mg/dL (0.2-1); TOT PROT 7.3 g/dl (6.4-8.2)
[2022-02-06] MEDS: HEPARIN NA (PORCINE) 5,000 UNITS/ML 1ML VIAL SQ SCH (10:35)
[2022-02-06] MEDS: URSODIOL 300 MG CAPSULE PO SCH (10:35)
[2022-02-06] MEDS: TAMSULOSIN HCL 0.4 MG CAP PO SCH (10:35)
[2022-02-06] MEDS: BUPRENORPHINE/NALOXONE 2 MG/0.5 MG FILM PACKET SL SCH (10:35)
[2022-02-06] MEDS: BICTEGRAV/EMTRICIT/TENOFOV (BIKTARVY) 50-200-25 MG TABLET PO SCH (10:35)
[2022-02-06] MEDS: AMOX TR/POT CLAV 875MG/125MG TABLETS (FP) PO SCH (10:35)
[2022-02-06] MEDS: metoPROLOL SUCCINATE 25 MG TAB.SR.24H (FP) PO SCH (10:35)
[2022-02-06] MEDS: NICOTINE 14 MG/24 HOURS TOPICAL PATCH TD SCH (10:36)
[2022-02-06] MEDS: PERMETHRIN (NIX CREAM SCALP RINSE) 59 ML 1% BOTTLE TP SCH ×2 (10:49→12:42)
[2022-02-06 11:02] LABS: ANISOCYTOSIS 0; MACROCYTOSIS 0
[2022-02-06] MEDS ORDERED: PERMETHRIN 5% TOPICAL CREAM 60 GM TUBE TP ONE (12:52)
[2022-02-06 15:10] VITALS: BP 113/57; PULSE 83; TEMP 98
[2022-02-06] MEDS: SODIUM CHLORIDE 1,000 ML IV SCH (17:49)
== END 2022-02-06 16:30 | disposition home or self-care (01) ==
LOC: JER 19:23 → UNDOADMIN 02-03 00:27 → JERBED 02-03 00:27 → J7W 02-03 15:07
PROVIDERS: ADMIT Internal Medicine; ATTEND Nurse Practitioner Family
DX: K80.00 Calculus of gallbladder with acute cholecystitis without obstruction (principal); F11.20 Opioid dependence, uncomplicated; B20 Human immunodeficiency virus [HIV] disease; I12.9 Hypertensive chronic kidney disease with stage 1 through stage 4 chronic kidney disease, or unspecified chronic kidney disease; N18.9 Chronic kidney disease, unspecified; I25.10 Atherosclerotic heart disease of native coronary artery without angina pectoris; E78.5 Hyperlipidemia, unspecified; K74.60 Unspecified cirrhosis of liver; F17.210 Nicotine dependence, cigarettes, uncomplicated; Z95.2 Presence of prosthetic heart valve; Z86.718 Personal history of other venous thrombosis and embolism; N40.0 Benign prostatic hyperplasia without lower urinary tract symptoms; D64.9 Anemia, unspecified; F14.10 Cocaine abuse, uncomplicated; B88.2 Other arthropod infestations; F19.10 Other psychoactive substance abuse, uncomplicated; Z95.1 Presence of aortocoronary bypass graft
CPT/HCPCS: 36415; 71045-TC-FY; 74176-TC; 76705-TC; 80053; 82248; 82272; 83605; 83690; 83735; 84100; 84443; 84484; 85025; 85045; 85610; 85730; 86359; 86360; 93005; 93010; 97116-GP; 97161-GP; 99285-25; J1644

== ENCOUNTER 2022-03-20 17:32 | Inpatient (IN) | payer OTHER ==
[2022-03-20] MEDS ORDERED: SODIUM CHLORIDE 1,089 ML IV ONE (18:14)
[2022-03-20] MEDS ORDERED: ROCURONIUM BROMIDE 50 MG/5 ML VIAL IV ONE (18:17)
[2022-03-20] MEDS ORDERED: ETOMIDATE 40 MG/20 ML VIAL IVPUSH ONE (18:18)
[2022-03-20] MEDS ORDERED: RAPID SEQUENCE INTUBATION KIT NR ONE ×2 (18:22→18:26)
[2022-03-20 19:18] LABS: PH,URINE 6.5 (5.0-8.0); URINE APPEARANCE CLEAR; URINE BILIRUBIN NEGATIVE (NEGATIVE); URINE COLOR YELLOW; URINE GLUCOSE (UA) NEGATIVE (NEGATIVE); URINE KETONE NEGATIVE (NEGATIVE); URINE LEUK ESTERASE NEGATIVE (NEGATIVE); URINE NITRITE NEGATIVE (NEGATIVE); URINE PROTEIN NEGATIVE (NEGATIVE); URINE UROBILINOGEN 0.2 mg/dL (0.2-1.0)
[2022-03-20 19:57] LABS: VENOUS BASE EXCESS -3.3 mmol/L (-2-2); VENOUS O2 SATURATION 99.2 % (70-80); VENOUS PCO2 42.4 mmHg (38-52); VENOUS PH 7.339 (7.310-7.410)
[2022-03-20 20:08] LABS: PROTHROMBIN TIME (PATIENT) 11.5 SEC (9.7-13.0)
[2022-03-20 20:10] LABS: ACTIVATED PTT 33.2 SECONDS (25.2-36.5)
[2022-03-20 20:18] LABS: BASO % 0.8 % (0-2.0); EOS % 9.2 % (0-4.5); HEMATOCRIT 26.7 % (35.4-49); HEMOGLOBIN 8.9 GM/dL (11.7-16.9); LYMPH % 22.1 % (8-40); MCH 29.8 pg (25.7-33.7); MCHC 33.1 g/dl (32.0-35.9); MEAN CELL VOLUME 90.1 fl (80-96); MEAN PLT VOLUME 9.6 fl (7.5-11.1); MONO % 5.6 % (3.8-10.2); NEUT % 62.3 % (42.8-82.8); PLATELET COUNT 188 10^3/uL (134-434); RBC 2.97 M/mm3 (4.00-5.60); RDW 17.5 % (11.9-15.9); WHITE BLOOD COUNT 8.4 K/mm3 (4.0-10.0)
[2022-03-20 20:21] LABS: ALBUMIN 2.9 g/dl (3.4-5.0); CALCIUM 8.1 mg/dL (8.5-10.1)
[2022-03-20 20:22] LABS: BLOOD UREA NITROGEN 62.5 mg/dL (7-18)
[2022-03-20 20:24] LABS: CREATININE 2.1 mg/dL (0.55-1.3)
[2022-03-20 20:26] LABS: BILIRUBIN,TOTAL 0.3 mg/dL (0.2-1); TOT PROT 6.7 g/dl (6.4-8.2)
[2022-03-20] MEDS ORDERED: LEVOTHYROXINE NA 88 MCG TABLET (FP) PO ONE (20:28)
[2022-03-20] MEDS ORDERED: PANTOPRAZOLE SODIUM 40 MG VIAL IVPUSH ONE (20:29)
[2022-03-20] MEDS ORDERED: LACTATED RINGERS SOLUTION 1,000 ML/1,000 ML INFUS.BAG IV SCH (20:45)
[2022-03-20] MEDS ORDERED: LORazepam 2 MG/ML SDV VIAL IVPUSH ONE (21:25)
[2022-03-20] MEDS: PROPOFOL 1,000,000 MCG/100 ML VIAL IVPB SCH (22:15)
[2022-03-20] MEDS: HEPARIN NA (PORCINE) 5,000 UNITS/ML 1ML VIAL SQ SCH (22:15)
[2022-03-20] MEDS ORDERED: ACETAMINOPHEN 325 MG TABLET (FP) PO PRN (22:49)
[2022-03-21] MEDS: MUPIROCIN 2% TOPICAL OINTMENT FOR DECOLONIZATION NS SCH ×3 (00:21→22:15)
[2022-03-21] MEDS: CHLORHEXIDINE GLUCONATE 4% CLEANSER FOR DECOLONIZATION TP SCH ×2 (00:22→22:16)
[2022-03-21] MEDS ORDERED: LACTATED RINGERS SOLUTION 1000 ML INFUS.BAG IV ONE ×4 (01:15→14:30)
[2022-03-21] MEDS: DEXMEDETOMIDINE PREMIX 400 MCG/100 ML BAG IVPB SCH (01:20)
[2022-03-21] MEDS ORDERED: KETAMINE HCL 200 MG/20 ML VIAL IVPUSH ONE ×2 (01:21→01:45)
[2022-03-21 01:38] LABS: URINE BARBITURATES NEGATIVE (NEGATIVE)
[2022-03-21 01:39] LABS: METHADONE, UR NEGATIVE (NEGATIVE); PHENCYCLIDINE,URINE NEGATIVE (NEGATIVE)
[2022-03-21] MEDS ORDERED: KETAMINE HCL 200 MG/20 ML VIAL IVPUSH PRN (01:45)
[2022-03-21 02:01] LABS: COCAINE, UR POSITIVE (NEGATIVE); OPIATES, URI POSITIVE (NEGATIVE); URINE AMPHETAMINES NEGATIVE (NEGATIVE); URINE BENZODIAZEPINES POSITIVE (NEGATIVE)
[2022-03-21] MEDS: LEVOTHYROXINE NA 88 MCG TABLET (FP) PO SCH (06:44)
[2022-03-21 07:18] LABS: BASO % 0.9 % (0-2.0); HEMATOCRIT 21.9 % (35.4-49); HEMOGLOBIN 7.3 GM/dL (11.7-16.9); LYMPH % 24.5 % (8-40); MCH 29.7 pg (25.7-33.7); MCHC 33.3 g/dl (32.0-35.9); MEAN CELL VOLUME 89.1 fl (80-96); MEAN PLT VOLUME 9.6 fl (7.5-11.1); MONO % 5.5 % (3.8-10.2); NEUT % 57.1 % (42.8-82.8); PLATELET COUNT 164 10^3/uL (134-434); RBC 2.45 M/mm3 (4.00-5.60); RDW 17.3 % (11.9-15.9); WHITE BLOOD COUNT 6.5 K/mm3 (4.0-10.0)
[2022-03-21 07:21] LABS: INR 1.05 (0.83-1.09); PROTHROMBIN TIME (PATIENT) 12.1 SEC (9.7-13.0)
[2022-03-21 07:24] LABS: ACTIVATED PTT 28.8 SECONDS (25.2-36.5)
[2022-03-21 07:32] LABS: CALCIUM 7.6 mg/dL (8.5-10.1)
[2022-03-21 07:33] LABS: ALBUMIN 2.4 g/dl (3.4-5.0); BLOOD UREA NITROGEN 53.9 mg/dL (7-18); MAGNESIUM 1.9 mg/dL (1.8-2.4)
[2022-03-21 07:36] LABS: CREATININE 1.9 mg/dL (0.55-1.3); PHOSPHOROUS 4.3 mg/dL (2.5-4.9)
[2022-03-21 07:37] LABS: BILIRUBIN,TOTAL 0.5 mg/dL (0.2-1)
[2022-03-21 07:38] LABS: TOT PROT 5.5 g/dl (6.4-8.2)
[2022-03-21] MEDS ORDERED: ATOVAQUONE 750 MG/5 ML (UNIT-DOSE PACKAGING) PO SCH (08:00)
[2022-03-21] MEDS ORDERED: LACTATED RINGERS SOLUTION 1,000 ML/1,000 ML INFUS.BAG IV SCH (08:02)
[2022-03-21] MEDS ORDERED: SODIUM CHLORIDE 1,000 ML IV STA (08:56)
[2022-03-21] MEDS: HEPARIN NA (PORCINE) 5,000 UNITS/ML 1ML VIAL SQ SCH ×2 (09:58→21:51)
[2022-03-21] MEDS: PANTOPRAZOLE SODIUM 40 MG VIAL IVPUSH SCH (09:58)
[2022-03-21] MEDS ORDERED: VANCOMYCIN/WATER FOR INJ (PEG) 1,000 MG/200 ML BAG IVPB ONE (10:23)
[2022-03-21] MEDS: PIPERACILLIN/TAZOB 3.375 GM 3.375 GM in DEXTROSE 5%-WATER - 50 ML IVPB SCH ×2 (10:44→17:32)
[2022-03-21 13:06] LABS: CREATININE, URINE RANDOM < 13.0 mg/dL (30-150)
[2022-03-21] MEDS ORDERED: DEXTROSE 50%-WATER - 25 GM/50 ML VIAL IVPUSH PRN (13:30)
[2022-03-21] MEDS ORDERED: DEXTROSE 5%-LACTATED RINGERS 1,000 ML IV SCH (13:30)
[2022-03-21] MEDS ORDERED: DEXTROSE 50%-WATER 25 GM/50 ML DISP.SYRIN ONE (13:33)
[2022-03-21] MEDS ORDERED: DEXTROSE 50%-WATER - 25 GM/50 ML VIAL IVPUSH ONE (14:30)
[2022-03-21] MEDS ORDERED: MINERAL OIL/PETROLATUM,WHITE 3.5 GM TUBE OU SCH (22:00)
[2022-03-21] MEDS ORDERED: ATORVASTATIN CA 10 MG TABLET (FP) PO SCH (22:00)
[2022-03-21] MEDS ORDERED: MINERAL OIL/PETROLATUM,WHITE 3.5 GM TUBE OD SCH (22:00)
[2022-03-21] MEDS: PROPOFOL 1,000,000 MCG/100 ML VIAL IVPB SCH (22:16)
[2022-03-21] MEDS: DEXTROSE 10%-WATER - 1,000 ML IV SCH (22:17)
[2022-03-22] MEDS: DEXMEDETOMIDINE PREMIX 400 MCG/100 ML BAG IVPB SCH (01:18)
[2022-03-22] MEDS: PIPERACILLIN/TAZOB 3.375 GM 3.375 GM in DEXTROSE 5%-WATER - 50 ML IVPB SCH ×3 (01:19→18:02)
[2022-03-22] MEDS: LEVOTHYROXINE NA 88 MCG TABLET (FP) PO SCH (06:08)
[2022-03-22 07:44] LABS: HEMATOCRIT 27.6 % (35.4-49); MCH 29.5 pg (25.7-33.7); MCHC 32.6 g/dl (32.0-35.9); MEAN CELL VOLUME 90.5 fl (80-96); MEAN PLT VOLUME 9.9 fl (7.5-11.1); PLATELET COUNT 196 10^3/uL (134-434); RBC 3.05 M/mm3 (4.00-5.60); RDW 17.1 % (11.9-15.9); WHITE BLOOD COUNT 8.5 K/mm3 (4.0-10.0)
[2022-03-22 08:13] LABS: ALBUMIN 2.6 g/dl (3.4-5.0); BLOOD UREA NITROGEN 33.9 mg/dL (7-18); CALCIUM 7.9 mg/dL (8.5-10.1)
[2022-03-22 08:15] LABS: CREATININE 1.7 mg/dL (0.55-1.3); PHOSPHOROUS 3.4 mg/dL (2.5-4.9)
[2022-03-22 08:20] LABS: BILIRUBIN,TOTAL 0.5 mg/dL (0.2-1); TOT PROT 6.2 g/dl (6.4-8.2)
[2022-03-22] MEDS: MUPIROCIN 2% TOPICAL OINTMENT FOR DECOLONIZATION NS SCH (09:40)
[2022-03-22] MEDS: HEPARIN NA (PORCINE) 5,000 UNITS/ML 1ML VIAL SQ SCH ×2 (09:40→21:56)
[2022-03-22] MEDS: PANTOPRAZOLE SODIUM 40 MG VIAL IVPUSH SCH (09:41)
[2022-03-22] MEDS ORDERED: VANCOMYCIN/WATER FOR INJ (PEG) 1,000 MG/200 ML BAG IVPB SCH (10:00)
[2022-03-22] MEDS ORDERED: ALBUTEROL SO4 2.5/IPRATROPIUM 0.5 INH SOL 3 ML VIAL.NEB. NEB PRN ×2 (12:09→20:58)
[2022-03-22] MEDS ORDERED: LEVOTHYROXINE SODIUM 100 MCG VIAL IVPUSH ONE ×2 (12:16→12:45)
[2022-03-22] MEDS ORDERED: DEXTROSE 50%-WATER 25 GM/50 ML DISP.SYRIN ONE (12:22)
[2022-03-22] MEDS: LACTATED RINGERS SOLUTION 1000 ML INFUS.BAG IV ONE ×2 (14:17→18:01)
[2022-03-22 14:24] VITALS: BMI 16.7
[2022-03-22] MEDS: DEXTROSE 10%-WATER - 1,000 ML IV SCH ×2 (14:35→21:34)
[2022-03-22] MEDS ORDERED: DEXTROSE 50%-WATER - 25 GM/50 ML VIAL IVPUSH ONE (14:38)
[2022-03-22] MEDS ORDERED: LACTATED RINGERS SOLUTION 1,000 ML/1,000 ML INFUS.BAG IV SCH (15:00)
[2022-03-22] MEDS: THIAMINE HCL 200 MG/2 ML VIAL IVPB SCH (16:00)
[2022-03-22] MEDS: AMINO ACIDS 4.25%/D5W 1,000 ML IV SCH (18:01)
[2022-03-22] MEDS: MULTIVIT INJ. ADULT COMBO WITH VIT K 1 COMBO 10 ML VIAL IV SCH (18:02)
[2022-03-22] MEDS ORDERED: PROPOFOL 1,000,000 MCG/100 ML VIAL IVPB SCH (20:58)
[2022-03-22] MEDS ORDERED: ACETAMINOPHEN 325 MG TABLET (FP) PO PRN (20:58)
[2022-03-22] MEDS ORDERED: DEXTROSE 50%-WATER 25 GM/50 ML DISP.SYRIN IVPUSH PRN (20:58)
[2022-03-22] MEDS: ATORVASTATIN CA 10 MG TABLET (FP) PO SCH (21:56)
[2022-03-22] MEDS: VANCOMYCIN/WATER FOR INJ (PEG) 1,000 MG/200 ML BAG IVPB SCH (22:58)
[2022-03-22] MEDS: MINERAL OIL/PETROLATUM,WHITE 3.5 GM TUBE OU SCH (23:19)
[2022-03-23] MEDS: PIPERACILLIN/TAZOB 3.375 GM 3.375 GM in DEXTROSE 5%-WATER - 50 ML IVPB SCH ×3 (02:00→17:29)
[2022-03-23 08:01] LABS: HEMATOCRIT 26.7 % (35.4-49); HEMOGLOBIN 8.7 GM/dL (11.7-16.9); MCH 29.4 pg (25.7-33.7); MCHC 32.6 g/dl (32.0-35.9); MEAN PLT VOLUME 9.9 fl (7.5-11.1); PLATELET COUNT 189 10^3/uL (134-434); RBC 2.97 M/mm3 (4.00-5.60); WHITE BLOOD COUNT 5.8 K/mm3 (4.0-10.0)
[2022-03-23 08:31] LABS: ALBUMIN 2.4 g/dl (3.4-5.0)
[2022-03-23 08:32] LABS: BLOOD UREA NITROGEN 24.7 mg/dL (7-18)
[2022-03-23 08:34] LABS: PHOSPHOROUS 2.9 mg/dL (2.5-4.9)
[2022-03-23 08:35] LABS: CREATININE 1.5 mg/dL (0.55-1.3)
[2022-03-23 08:36] LABS: BILIRUBIN,TOTAL 0.5 mg/dL (0.2-1); TOT PROT 6.1 g/dl (6.4-8.2)
[2022-03-23] MEDS: HEPARIN NA (PORCINE) 5,000 UNITS/ML 1ML VIAL SQ SCH ×2 (09:53→22:19)
[2022-03-23] MEDS: THIAMINE HCL 200 MG/2 ML VIAL IVPB SCH (09:53)
[2022-03-23] MEDS: PANTOPRAZOLE SODIUM 40 MG VIAL IVPUSH SCH (09:54)
[2022-03-23] MEDS: VANCOMYCIN/WATER FOR INJ (PEG) 1,000 MG/200 ML BAG IVPB SCH (10:17)
[2022-03-23] MEDS: AMINO ACIDS 4.25%/D5W 1,000 ML IV SCH (17:30)
[2022-03-23] MEDS: MULTIVIT INJ. ADULT COMBO WITH VIT K 1 COMBO 10 ML VIAL IV SCH (17:31)
[2022-03-23] MEDS: DEXTROSE 10%-WATER - 1,000 ML IV SCH (22:19)
[2022-03-23] MEDS: ATORVASTATIN CA 10 MG TABLET (FP) PO SCH (22:19)
[2022-03-24] MEDS: MINERAL OIL/PETROLATUM,WHITE 3.5 GM TUBE OU SCH ×2 (00:08→21:36)
[2022-03-24] MEDS: PIPERACILLIN/TAZOB 3.375 GM 3.375 GM in DEXTROSE 5%-WATER - 50 ML IVPB SCH ×3 (03:18→17:29)
[2022-03-24 09:00] LABS: HEMOGLOBIN 9.1 GM/dL (11.7-16.9); MCHC 33.8 g/dl (32.0-35.9); MEAN CELL VOLUME 88.7 fl (80-96); MEAN PLT VOLUME 9.7 fl (7.5-11.1); PLATELET COUNT 194 10^3/uL (134-434); RBC 3.04 M/mm3 (4.00-5.60); RDW 16.8 % (11.9-15.9); WHITE BLOOD COUNT 6.1 K/mm3 (4.0-10.0)
[2022-03-24] MEDS: ATOVAQUONE 750 MG/5 ML (UNIT-DOSE PACKAGING) PO SCH (09:40)
[2022-03-24] MEDS: THIAMINE HCL 200 MG/2 ML VIAL IVPB SCH (09:55)
[2022-03-24] MEDS: PANTOPRAZOLE SODIUM 40 MG VIAL IVPUSH SCH (09:55)
[2022-03-24] MEDS: HEPARIN NA (PORCINE) 5,000 UNITS/ML 1ML VIAL SQ SCH ×2 (09:55→21:35)
[2022-03-24 10:09] LABS: ALBUMIN 2.7 g/dl (3.4-5.0); BLOOD UREA NITROGEN 24.3 mg/dL (7-18); CALCIUM 8.2 mg/dL (8.5-10.1); MAGNESIUM 2.1 mg/dL (1.8-2.4)
[2022-03-24 10:12] LABS: CREATININE 1.7 mg/dL (0.55-1.3)
[2022-03-24 10:14] LABS: BILIRUBIN,TOTAL 0.5 mg/dL (0.2-1); TOT PROT 6.8 g/dl (6.4-8.2)
[2022-03-24 11:17] LABS: ANISOCYTOSIS 0; MACROCYTOSIS 0
[2022-03-24] MEDS: AMINO ACIDS 4.25%/D5W 1,000 ML IV SCH (17:29)
[2022-03-24] MEDS: MULTIVIT INJ. ADULT COMBO WITH VIT K 1 COMBO 10 ML VIAL IV SCH (17:30)
[2022-03-24] MEDS: ATORVASTATIN CA 10 MG TABLET (FP) PO SCH (21:35)
[2022-03-25] MEDS: PIPERACILLIN/TAZOB 3.375 GM 3.375 GM in DEXTROSE 5%-WATER - 50 ML IVPB SCH ×3 (02:17→17:11)
[2022-03-25 07:49] LABS: HEMATOCRIT 27.7 % (35.4-49); HEMOGLOBIN 9.4 GM/dL (11.7-16.9); MEAN CELL VOLUME 88.4 fl (80-96); MEAN PLT VOLUME 9.7 fl (7.5-11.1); PLATELET COUNT 203 10^3/uL (134-434); RBC 3.13 M/mm3 (4.00-5.60); RDW 16.6 % (11.9-15.9); WHITE BLOOD COUNT 7.2 K/mm3 (4.0-10.0)
[2022-03-25 08:14] LABS: ALBUMIN 2.7 g/dl (3.4-5.0); BLOOD UREA NITROGEN 26.4 mg/dL (7-18); CALCIUM 8.4 mg/dL (8.5-10.1); MAGNESIUM 2.1 mg/dL (1.8-2.4)
[2022-03-25 08:16] LABS: CREATININE 1.7 mg/dL (0.55-1.3)
[2022-03-25 08:18] LABS: BILIRUBIN,TOTAL 0.7 mg/dL (0.2-1); TOT PROT 7.2 g/dl (6.4-8.2)
[2022-03-25] MEDS: ATOVAQUONE 750 MG/5 ML (UNIT-DOSE PACKAGING) PO SCH (09:38)
[2022-03-25] MEDS: PANTOPRAZOLE SODIUM 40 MG VIAL IVPUSH SCH (09:39)
[2022-03-25] MEDS: HEPARIN NA (PORCINE) 5,000 UNITS/ML 1ML VIAL SQ SCH ×2 (09:39→22:09)
[2022-03-25] MEDS: THIAMINE HCL 200 MG/2 ML VIAL IVPB SCH (09:41)
[2022-03-25 09:42] LABS: ANISOCYTOSIS 3+; MACROCYTOSIS 0; OVALOCYTE 1+
[2022-03-25] MEDS: MULTIVIT INJ. ADULT COMBO WITH VIT K 1 COMBO 10 ML VIAL IV SCH (18:18)
[2022-03-25] MEDS: ATORVASTATIN CA 10 MG TABLET (FP) PO SCH (22:10)
[2022-03-25] MEDS: MINERAL OIL/PETROLATUM,WHITE 3.5 GM TUBE OU SCH (22:10)
[2022-03-26] MEDS: PIPERACILLIN/TAZOB 3.375 GM 3.375 GM in DEXTROSE 5%-WATER - 50 ML IVPB SCH ×4 (01:09→18:16)
[2022-03-26] MEDS: HEPARIN NA (PORCINE) 5,000 UNITS/ML 1ML VIAL SQ SCH ×2 (10:34→22:45)
[2022-03-26] MEDS: MULTIVITAMINS (DAILY MVI) TABLET (FP) PO SCH (10:37)
[2022-03-26] MEDS: FOLIC ACID 1 MG TABLET (FP) PO SCH (10:37)
[2022-03-26] MEDS: PANTOPRAZOLE 40 MG TABLET PO SCH (10:37)
[2022-03-26] MEDS: ATOVAQUONE 750 MG/5 ML (UNIT-DOSE PACKAGING) PO SCH (10:48)
[2022-03-26] MEDS: AMINO ACIDS/PROTEIN HYDROLYS 30 ML LIQUID.PKT PO SCH ×2 (13:23→17:06)
[2022-03-26] MEDS ORDERED: DEXTROSE 50%-WATER 25 GM/50 ML DISP.SYRIN IVPUSH PRN (19:43)
[2022-03-26] MEDS ORDERED: ALBUTEROL SO4 2.5/IPRATROPIUM 0.5 INH SOL 3 ML VIAL.NEB. NEB PRN (19:43)
[2022-03-26] MEDS ORDERED: ACETAMINOPHEN 325 MG TABLET (FP) PO PRN (19:43)
[2022-03-26] MEDS: MINERAL OIL/PETROLATUM,WHITE 3.5 GM TUBE OU SCH (22:45)
[2022-03-26] MEDS: ATORVASTATIN CA 10 MG TABLET (FP) PO SCH (22:45)
[2022-03-26] MEDS: THIAMINE HCL 100 MG TABLET (FP) PO SCH (22:45)
[2022-03-27] MEDS: ATOVAQUONE 750 MG/5 ML (UNIT-DOSE PACKAGING) PO SCH (07:59)
[2022-03-27] MEDS: AMOX TR/POT CLAV 875MG/125MG TABLETS (FP) PO SCH ×2 (07:59→17:37)
[2022-03-27] MEDS: AMINO ACIDS/PROTEIN HYDROLYS 30 ML LIQUID.PKT PO SCH ×3 (07:59→17:37)
[2022-03-27 08:25] LABS: BASO % 0.3 % (0-2.0); EOS % 5.1 % (0-4.5); HEMATOCRIT 28.8 % (35.4-49); HEMOGLOBIN 9.7 GM/dL (11.7-16.9); LYMPH % 10.5 % (8-40); MCH 29.2 pg (25.7-33.7); MCHC 33.6 g/dl (32.0-35.9); MEAN CELL VOLUME 86.8 fl (80-96); MEAN PLT VOLUME 9.1 fl (7.5-11.1); NEUT % 75.1 % (42.8-82.8); PLATELET COUNT 349 10^3/uL (134-434); RBC 3.32 M/mm3 (4.00-5.60); RDW 16.7 % (11.9-15.9); WHITE BLOOD COUNT 11.6 K/mm3 (4.0-10.0)
[2022-03-27 08:49] LABS: ALBUMIN 2.8 g/dl (3.4-5.0); BLOOD UREA NITROGEN 30.5 mg/dL (7-18); CALCIUM 8.7 mg/dL (8.5-10.1); MAGNESIUM 2.8 mg/dL (1.8-2.4)
[2022-03-27 08:53] LABS: BILIRUBIN,TOTAL 0.8 mg/dL (0.2-1)
[2022-03-27 08:54] LABS: TOT PROT 8.2 g/dl (6.4-8.2)
[2022-03-27] MEDS: HEPARIN NA (PORCINE) 5,000 UNITS/ML 1ML VIAL SQ SCH ×2 (11:00→23:32)
[2022-03-27] MEDS: PANTOPRAZOLE 40 MG TABLET PO SCH (11:00)
[2022-03-27] MEDS: MULTIVITAMINS (DAILY MVI) TABLET (FP) PO SCH (11:00)
[2022-03-27] MEDS: FOLIC ACID 1 MG TABLET (FP) PO SCH (12:50)
[2022-03-27] MEDS: ATORVASTATIN CA 10 MG TABLET (FP) PO SCH (23:30)
[2022-03-27] MEDS: THIAMINE HCL 100 MG TABLET (FP) PO SCH (23:30)
[2022-03-27] MEDS: MINERAL OIL/PETROLATUM,WHITE 3.5 GM TUBE OU SCH (23:34)
[2022-03-28] MEDS: MULTIVITAMINS (DAILY MVI) TABLET (FP) PO SCH (10:25)
[2022-03-28] MEDS: PANTOPRAZOLE 40 MG TABLET PO SCH (10:25)
[2022-03-28] MEDS: AMOX TR/POT CLAV 875MG/125MG TABLETS (FP) PO SCH ×2 (10:25→17:21)
[2022-03-28] MEDS: TAMSULOSIN HCL 0.4 MG CAP PO SCH (10:25)
[2022-03-28] MEDS: AMINO ACIDS/PROTEIN HYDROLYS 30 ML LIQUID.PKT PO SCH ×3 (10:25→17:11)
[2022-03-28] MEDS: FOLIC ACID 1 MG TABLET (FP) PO SCH (10:25)
[2022-03-28] MEDS: HEPARIN NA (PORCINE) 5,000 UNITS/ML 1ML VIAL SQ SCH ×2 (10:25→23:32)
[2022-03-28] MEDS: ATOVAQUONE 750 MG/5 ML (UNIT-DOSE PACKAGING) PO SCH (10:27)
[2022-03-28] MEDS ORDERED: DEXTROSE 5%-0.45% SALINE 1,000 ML IV SCH (15:00)
[2022-03-28] MEDS: ATORVASTATIN CA 10 MG TABLET (FP) PO SCH (23:32)
[2022-03-28] MEDS: MIRTAZAPINE 15 MG TABLET (FP) PO SCH (23:32)
[2022-03-28] MEDS: THIAMINE HCL 100 MG TABLET (FP) PO SCH (23:32)
[2022-03-28] MEDS: MINERAL OIL/PETROLATUM,WHITE 3.5 GM TUBE OU SCH (23:34)
[2022-03-29] MEDS: AMINO ACIDS/PROTEIN HYDROLYS 30 ML LIQUID.PKT PO SCH ×3 (08:53→16:51)
[2022-03-29] MEDS: TAMSULOSIN HCL 0.4 MG CAP PO SCH (08:53)
[2022-03-29] MEDS: AMOX TR/POT CLAV 875MG/125MG TABLETS (FP) PO SCH ×2 (08:53→16:51)
[2022-03-29] MEDS: ATOVAQUONE 750 MG/5 ML (UNIT-DOSE PACKAGING) PO SCH (08:54)
[2022-03-29] MEDS: FOLIC ACID 1 MG TABLET (FP) PO SCH (09:58)
[2022-03-29] MEDS: PANTOPRAZOLE 40 MG TABLET PO SCH (09:58)
[2022-03-29] MEDS: MULTIVITAMINS (DAILY MVI) TABLET (FP) PO SCH (09:59)
[2022-03-29] MEDS: HEPARIN NA (PORCINE) 5,000 UNITS/ML 1ML VIAL SQ SCH ×2 (10:01→22:08)
[2022-03-29 10:37] LABS: HEMATOCRIT 25.8 % (35.4-49); HEMOGLOBIN 8.5 GM/dL (11.7-16.9); MCH 28.8 pg (25.7-33.7); MCHC 33.1 g/dl (32.0-35.9); MEAN CELL VOLUME 86.9 fl (80-96); MEAN PLT VOLUME 9.3 fl (7.5-11.1); PLATELET COUNT 371 10^3/uL (134-434); RBC 2.97 M/mm3 (4.00-5.60); RDW 16.3 % (11.9-15.9); WHITE BLOOD COUNT 6.6 K/mm3 (4.0-10.0)
[2022-03-29 11:06] LABS: ANISOCYTOSIS 0; MACROCYTOSIS 0
[2022-03-29 11:34] LABS: ALBUMIN 2.9 g/dl (3.4-5.0); BLOOD UREA NITROGEN 28.6 mg/dL (7-18); MAGNESIUM 2.8 mg/dL (1.8-2.4)
[2022-03-29 11:36] LABS: BILIRUBIN,TOTAL 0.5 mg/dL (0.2-1); TOT PROT 7.7 g/dl (6.4-8.2)
[2022-03-29 11:37] LABS: CREATININE 1.7 mg/dL (0.55-1.3)
[2022-03-29] MEDS: MIRTAZAPINE 15 MG TABLET (FP) PO SCH (22:09)
[2022-03-29] MEDS: ATORVASTATIN CA 10 MG TABLET (FP) PO SCH (22:09)
[2022-03-29] MEDS: THIAMINE HCL 100 MG TABLET (FP) PO SCH (22:09)
[2022-03-29] MEDS: MINERAL OIL/PETROLATUM,WHITE 3.5 GM TUBE OU SCH (22:10)
[2022-03-29 22:48] VITALS: RESP 18
[2022-03-30 06:42] VITALS: BP 134/63; PULSE 80; TEMP 98.7
[2022-03-30] MEDS: ATOVAQUONE 750 MG/5 ML (UNIT-DOSE PACKAGING) PO SCH (10:21)
[2022-03-30] MEDS: FOLIC ACID 1 MG TABLET (FP) PO SCH (10:22)
[2022-03-30] MEDS: TAMSULOSIN HCL 0.4 MG CAP PO SCH (10:22)
[2022-03-30] MEDS: PANTOPRAZOLE 40 MG TABLET PO SCH (10:22)
[2022-03-30] MEDS: HEPARIN NA (PORCINE) 5,000 UNITS/ML 1ML VIAL SQ SCH (10:22)
[2022-03-30] MEDS: AMOX TR/POT CLAV 875MG/125MG TABLETS (FP) PO SCH (10:22)
[2022-03-30] MEDS: MULTIVITAMINS (DAILY MVI) TABLET (FP) PO SCH (10:22)
[2022-03-30] MEDS: AMINO ACIDS/PROTEIN HYDROLYS 30 ML LIQUID.PKT PO SCH (10:22)
== END 2022-03-30 11:00 | disposition home or self-care (01) | DRG 816 ==
LOC: JER 17:32 → JERBED 20:02 → JICU 22:01 → J4W 03-22 20:38 → J7W 03-26 04:34
PROVIDERS: ADMIT Internal Medicine Pulmonary Disease; ATTEND Nurse Practitioner Family
PROC: 5A1935Z Respiratory Ventilation, Less than 24 Consecutive Hours (ICD-10-PCS; principal; 2022-03-20)
PROC: 0BH17EZ Insertion of Endotracheal Airway into Trachea, Via Natural or Artificial Opening (ICD-10-PCS; 2022-03-20)
DX: T40.1X1A Poisoning by heroin, accidental (unintentional), initial encounter (principal); G92.8 Other toxic encephalopathy; J96.01 Acute respiratory failure with hypoxia; E43 Unspecified severe protein-calorie malnutrition; B20 Human immunodeficiency virus [HIV] disease; K74.60 Unspecified cirrhosis of liver; I12.9 Hypertensive chronic kidney disease with stage 1 through stage 4 chronic kidney disease, or unspecified chronic kidney disease; N18.9 Chronic kidney disease, unspecified; I25.10 Atherosclerotic heart disease of native coronary artery without angina pectoris; N40.0 Benign prostatic hyperplasia without lower urinary tract symptoms; R64 Cachexia; E03.9 Hypothyroidism, unspecified; Z68.1 Body mass index [BMI] 19.9 or less, adult; Z95.2 Presence of prosthetic heart valve; Z86.718 Personal history of other venous thrombosis and embolism; Y92.89 Other specified places as the place of occurrence of the external cause; D64.9 Anemia, unspecified; J69.0 Pneumonitis due to inhalation of food and vomit; E78.5 Hyperlipidemia, unspecified; F14.10 Cocaine abuse, uncomplicated; F11.10 Opioid abuse, uncomplicated; F19.20 Other psychoactive substance dependence, uncomplicated
CPT/HCPCS: 0241U-QW; 36415; 70450-TC; 71045-TC-FY; 72050-TC-FY; 72125-TC; 74230-TC-FY; 76775-TC; 80053; 80307; 81003; 82140; 82550; 82553; 82570; 82803; 82962; 83605; 83735; 84100; 84156; 84300; 84443; 84484; 85025; 85027; 85610; 85730; 86359; 86360; 86850; 86900; 86901; 87040; 87086; 92611-GN; 93005; 93010; 94002; 94010; 94761; 97116-GP; 97162-GP; 99291; C9803-CS; G0480; J1644; U0003; U0005